=== PATIENT | female | born 1990 | race Caucasian/White ===

== ENCOUNTER 2023-01-18 11:17 | Emergency (ER) | payer BC, SELFPAY ==
[2023-01-18] VITALS (13 sets, daily range): BP systolic 151–160; BP diastolic 89–100; PULSE 64–88; RESP 8–21; TEMP 36.4; O2SAT 95–98; BMI 38.0
--- NOTE | 2023-01-18 11:28 | ECG_ITS ---
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
--- NOTE | 2023-01-18 11:29 | XR_ITS ---
The [address] [address] Patient Name: MAMADOU DRISCOLL MRN: [id number] date: 1990 Sex: F Assigned Patient Location: ER Current Patient Location: ER Accession/Order Number: [id number] Exam Date: 01/18/2023 11:55 Report Date: 01/18/2023 12:17 At the request of: ORTEGA TAN Procedure: XR chest 2V XR chest 2V CLINICAL: Chest pain COMPARISON: 02/28/2021 TECHNIQUE: PA and lateral chest radiographs were obtained. FINDINGS: Heart size and pulmonary vasculature are within normal limits. No airspace infiltrate, consolidation, effusion or pneumothorax. Osseous structures appear intact. XR/XR chest 2V IMPRESSION: No acute cardiac or pulmonary findings. Electronically authenticated by: RASHAUN MELGOZA Date: 01/18/2023 12:17
--- NOTE | 2023-01-18 11:32 | ED_ITS ---
HPI - Chest Pain General Chief Complaint: Chest Pain Stated Complaint: CHEST PAIN Time Seen by Provider: 01/18/23 11:22 Source: patient Limitations: no limitations History of Present Illness HPI narrative: Patient has been experiencing chest pain for the last few days. It initially was intermittent but now is constant. It is localized to the mid anterior chest, just left of center and is non-radiating. Pressing on the area decreases the pain, he told me. No recent activity or injury to account for the pain. 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 He had a mild cough the last few days. No associated shortness of breath. No fever or chills. 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 He has HTN and strong family history of AMI/CAD - his brother had maker at age 34. He took 1500 milligrams of Tylenol for the pain earlier today. Risk Factors Coronary artery disease risk factors: hypertension and family history of CAD before age 50 Thoracic aortic dissection risk factors: none Related Data Home Medications Medication Instructions Recorded Confirmed propranolol 120 mg capsule,24 240 mg PO Q24H 01/18/23 01/18/23 hr,extended release testosterone cypionate 200 mg/mL 200 mg subcut Q7D 01/18/23 01/18/23 intramuscular oil Previous Rx's Medication Instructions Recorded nabumetone 750 mg tablet 750 mg PO BID PRN pain #10 tabs 01/18/23 Allergies Allergy/AdvReac Type Severity Reaction Status Date / Time lamotrigine [From Lamictal] AdvReac Intermediate Verified [facility]18/23 11:[facility] Smoking status: Never smoker Exam Narrative Exam Narrative: Nurses notes and vital signs reviewed and patient is not hypoxic. afebrile General: Well-appearing and in no apparent distress. Skin: Warm, dry, no pallor noted. No rash to chest. Eye: Pupils are equal, round and EOMI. No scleral icterus. Cardiovascular: Regular Rate and Rhythm without murmur, gallop or rub. Respiratory: No accessory muscle use or respiratory distress. Lungs are clear to auscultation, no wheezing, rales or rhonchi Chest Wall: no tenderness, crepitus or subcutaneous emphysema Musculoskeletal: normal ROM, no calf or popliteal tenderness, no lower extremity edema/swelling GI: Abdomen is soft, non-distended. Normal bowel sounds. No tenderness to pa lpation. No rebound, guarding, or rigidity noted. Neurological: A&O x4. No cranial nerve dysfunction observed. No truncal ataxia. Moves all extremities. Sensation intact. Psychiatric: Cooperative and interactive. Normal mood and affect. Constitutional Vital Signs, click to edit/add: Last Vital Signs Temp 97.6 F 01/18/23 11:21 Pulse 65 01/18/23 13:49 Resp 14 01/18/23 13:49 BP 151/89 H 01/18/23 13:49 Pulse Ox 97 01/18/23 13:49 O2 Del Method Room Air 01/18/23 13:49 Course Vital Signs Vital signs: Vital Signs Temperature 97.6 F 01/18/23 11:21 Pulse Rate 88 01/18/23 11:21 Respiratory Rate 18 01/18/23 11:21 Blood Pressure 160/100 H 01/18/23 11:21 Pulse Oximetry 98 01/18/23 11:21 Temperature 97.6 F 01/18/23 11:21 Pulse Rate 65 01/18/23 13:49 Respiratory Rate 14 01/18/23 13:49 Blood Pressure 151/89 H 01/18/23 13:49 Pulse Oximetry 97 01/18/23 13:49 Oxygen Delivery Method Room Air 01/18/23 13:49 MDM - Chest Pain MDM Narrative Medical decision making narrative: 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 Blood drawn and sent for evaluation. CXR obtained. CBC, BMP, troponin and BNP normal/negative. D-dimer negative. CXR unremarkable. EKG normal. Results discussed with the patient. His HEART score = 1. He will go home and see Dr Palencia in follow up for further out-patient testing. The patient was given IV Toradol before discharge and prescribed relafen short term for home use for pain. Lab Data Attestation: I reviewed the patient's lab results. Labs: Lab Results 01/18/23 Range/Units 11:37 WBC 8.5 (4.0-11.0) 10^3/uL RBC 5.64 H (4.20-5.40) 10^6/uL Hgb 17.4 H (12.0-16.0) g/dL Hct 51.7 H (36.0-48.0) % MCV 91.7 (81.0-99.0) fL MCH 30.9 (26.7-34.0) pg MCHC 33.7 (29.9-35.2) g/dL RDW 13.3 (11.0-15.0) % Plt Count 335 (150-450) 10^3/uL MPV 9.9 (9.5-13.5) fL Neut % (Auto) 60.1 (43.0-75.0) % Lymph % (Auto) 26.5 (20.5-60.0) % [place] % (Auto) 8.7 (1.7-12.0) % Eos % (Auto) 3.4 (0.9-7.0) % Baso % (Auto) 0.7 (0.2-2.0) % Neut # (Auto) 5.1 (1.4-6.5) 10^3/uL Lymph # (Auto) 2.3 (1.2-3.8) 10^3/uL [place] # (Auto) 0.7 (0.3-0.8) 10^3/uL Eos # (Auto) 0.3 (0.0-0.7) 10^3/uL Baso # (Auto) 0.1 (0.0-0.1) 10^3/uL Abs Immat Gran (auto) 0.05 H (0.00-0.03) 10^3/uL Imm/Tot Granulo (auto) 0.6 H (0.0-0.5) % D-Dimer 0.26 (<=0.59) mg/L FEU Sodium 141 (136-145) mmol/L Potassium 4.0 (3.5-5.1) mmol/L Chloride 102 (98-107) mmol/L Carbon Dioxide 29.7 (21.0-32.0) mmol/L Anion Gap 13.3 BUN 15.0 (7.0-18.0) mg/dL Creatinine 0.94 (0.55-1.02) mg/dL Est GFR ( Amer) >60 (>=60) Est GFR (Non-Af Amer) >60 (>=60) BUN/Creatinine Ratio 16.0 Glucose 81 (74-106) mg/dL Calcium 9.0 (8.5-10.1) mg/dL Troponin I High Sens 4.3 (4.0-51.3) pg/mL NT-Pro-B Natriuret Pep 51.0 (<=450.0) pg/mL Imaging Data Chest x-ray: Radiologist's impression: Patient Name: MAMADOU DRISCOLL MRN: [id number] date: 1990 Sex: F Assigned Patient Location: ER Current Patient Location: ER Accession/Order Number: [id number] Exam Date: 01/18/2023 11:55 Report Date: 01/18/2023 12:17 At the request of: ORTEGA TAN Procedure: XR chest 2V XR chest 2V CLINICAL: Chest pain COMPARISON: 02/28/2021 TECHNIQUE: PA and lateral chest radiographs were obtained. FINDINGS: Heart size and pulmonary vasculature are within normal limits. No airspace infiltrate, consolidation, effusion or pneumothorax. Osseous structures appear intact. IMPRESSION: No acute cardiac or pulmonary findings. Electronically authenticated by: RASHAUN MELGOZA Date: 01/18/2023 12:17 ECG Data Interpretation: EKG interpretation: Emergency Department physician interpretation. Normal sinus rhythm at 74bpm. Normal axis, normal intervals and no ST segment elevation or depression. Normal EKG. Heart Score History: Slightly/Non-Suspicious ECG: Normal Age: <45 years Risk Factors: 1 or 2 Risk Factors Troponin: <Normal Limit Total Heart Score Recommendations & Risks:: 1 Discharge Plan Discharge Chief Complaint: Chest Pain Clinical Impression: Chest pain Patient Disposition: Home, Self-Care Time of Disposition Decision: 13:09 Prescriptions / Home Meds: New nabumetone 750 mg tablet 750 mg PO BID PRN (Reason: pain) Qty: 10 0RF No Action propranolol 120 mg capsule,extended release 24 hr 240 mg PO Q24H testosterone cypionate 200 mg/mL oil 200 mg subcut Q7D Instructions: Chest Pain (ED) Stand Alone Forms: Portal Instructions Referrals: Ricardo Palencia MD [Physician] - As soon as possible Discharge Date/Time: 01/18/23 13:51
[2023-01-18 12:18] LABS: Basophils Absolute Auto 0.1 10^3/uL (0.0-0.1); Basophils Percent Auto 0.7 % (0.2-2.0); Eosinophils Absolute Auto 0.3 10^3/uL (0.0-0.7); Eosinophils Percent Auto 3.4 % (0.9-7.0); Hematocrit 51.7 % (36.0-48.0); Hemoglobin 17.4 g/dL (12.0-16.0); Immature Granulocytes Abs Auto 0.05 10^3/uL (0.00-0.03); Immature Granulocytes Pct Auto 0.6 % (0.0-0.5); Lymphocytes Absolute Auto 2.3 10^3/uL (1.2-3.8); Lymphocytes Percent Auto 26.5 % (20.5-60.0); Mean Corpuscular HGB Conc 33.7 g/dL (29.9-35.2); Mean Corpuscular Hemoglobin 30.9 pg (26.7-34.0); Mean Corpuscular Volume 91.7 fL (81.0-99.0); Mean Platelet Volume 9.9 fL (9.5-13.5); Monocytes Absolute Auto 0.7 10^3/uL (0.3-0.8); Monocytes Percent Auto 8.7 % (1.7-12.0); Neutrophils Absolute Auto 5.1 10^3/uL (1.4-6.5); Neutrophils Percent Auto 60.1 % (43.0-75.0); Platelet Count 335 10^3/uL (150-450); Red Blood Count 5.64 10^6/uL (4.20-5.40); Red Cell Distribution Width 13.3 % (11.0-15.0); White Blood Count 8.5 10^3/uL (4.0-11.0)
[2023-01-18 12:33] LABS: D Dimer 0.26 mg/L FEU (<=0.59)
[2023-01-18 12:42] LABS: Anion Gap 13.3; Carbon Dioxide 29.7 mmol/L (21.0-32.0); Chloride 102 mmol/L (98-107); Estimated GFR (African America >60 (>=60); Estimated GFR (Non-African Ame >60 (>=60); Glucose 81 mg/dL (74-106); Sodium 141 mmol/L (136-145); Troponin I High Sensitivity 4.3 pg/mL (4.0-51.3)
[2023-01-18] MEDS: KETOROLAC TROMETHAMINE 30 MG/ML VIAL IVP (13:42)
== END 2023-01-18 13:51 | disposition home or self-care (01) ==
PROVIDERS: Emergency Provider Emergency Medicine
DX: R07.9 Chest pain, unspecified (principal); F64.0 Transsexualism; I10 Essential (primary) hypertension; Z79.899 Other long term (current) drug therapy
CPT/HCPCS: 36415; 71046; 80048; 83880; 84484; 85025; 85378; 93005; 96374; 99285

== ENCOUNTER 2023-11-28 16:44 | Outpatient (OUT) | payer BC, SELFPAY ==
--- OUTSIDE RECORDS SUMMARY | 2023-11-28 10:50 | XMS_ITS | CCD ---
Author Organization [facility] Care Team Providers Care Staple Side Laster Name Role Phone DAYRON RAYMOND Admitting Unavailable DAYRON RAYMOND Attending Unavailable FATEMEH PALENCIA Referring Unavailable FATEMEH PALENCIA Primary Care Unavailable ID Procedure Practitioner Unavailab DAYRON Lozada Surgeon Unavailable ID Procedure Practitioner Unavailab VIJAY Joiner Surgeon Unavailable HA RAYMOND Admitting Unavailable HA RAYMOND Attending Unavailable FATEMEH PALENCIA Referring Unavailable FATEMEH PALENCIA Primary Care Unavailable PHYSICIAN, DEFAULT Admitting Unavailable PHYSICIAN, DEFAULT Attending Unavailable HA RAYMOND Admitting Unavailable HA RAYMOND Attending Unavailable SELF, REFERRED Referring Unavailable SELF, REFERRED Primary Care Unavailable HA RAYMOND Admitting Unavailable HA RAYMOND Attending Unavailable SELF, REFERRED Referring Unavailable SELF, REFERRED Primary Care Unavailable HA RAYMOND Admitting Unavailable HA RAYMOND Attending Unavailable FATEMEH PALENCIA Referring Unavailable FATEMEH PALENCIA Primary Care Unavailable Fatemeh Palencia Primary Care Provider FATEMEH ANTHONY DO Admitting Unavailable Alvarado REYEZ Consulting Unavailable WILL PALENCIA Primary Care Unavailable FATEMEH ANTHONY DO Attending Unavailable FATEMEH ANTHONY DO Consulting Unavailable WILL PALENCIA Consulting Unavailable DR FATEMEH PALENCIA Primary Care Unavailable DR FATEMEH PALENCIA Admitting Unavailable DR FATEMEH PALENCIA Attending Unavailable DR FATEMEH PALENCIA Primary Care Unavailable DR FATEMEH PALENCIA Admitting Unavailable DR FATEMEH PALENCIA Attending Unavailable DR FATEMEH PALENCIA Consulting Unavailable DR FATEMEH PALENCIA Primary Care Unavailable DR FATEMEH PALENCIA Admitting Unavailable DR FATEMEH PALENCIA Attending Unavailable DR FATEMEH PALENCIA Primary Care Unavailable SANGEETA PALMER Admitting Unavailable SANGEETA PALMER Attending Unavailable Fatemeh Palencia MD Primary Care Provider [phone] FATEMEH PALENCIA Primary Care Unavailable MARGARET BOO Attending Unavailable SELF, SELF Referring Unavailable HOY, FATEMEH M Primary Care Unavailable HOY, FATEMEH M Referring Unavailable FAITH DAVIS Attending Unavailable HOY, FATEMEH M Primary Care Unavailable FAITH DAVIS Attending Unavailable FAITH DAVIS Referring Unavailable HOY, FATEMEH M Primary Care Unavailable SELF, SELF Referring Unavailable BOO, SAFDAR N Attending Unavailable HOY, FATEMEH M Primary Care Unavailable BOO, SAFDAR N Referring Unavailable BOO, SAFDAR N Attending Unavailable BOO, SAFDAR N Referring Unavailable HOY, FATEMEH M Primary Care Unavailable JEYSON MEDINA Attending Unavailable BOO, SAFDAR N Referring Unavailable HOY, FATEMEH M Primary Care Unavailable BOO, SAFDAR N Attending Unavailable BOO, SAFDAR N Attending Unavailable HOY, FATEMEH M Primary Care Unavailable SELF, SELF Referring Unavailable HOY, FATEMEH M Primary Care Unavailable FAITH DAVIS Attending Unavailable FAITH DAVIS Referring Unavailable RAMONA SHEN Attending Unavailable HOY, FATEMEH M Primary Care Unavailable Fatemeh Palencia MD M Primary Care Provider [phone] HOY, FATEMEH M Primary Care Unavailable DAVID DIXON JR. Attending Unavailable SANTIAGO HIGHTOWER Referring Unavaila ble HOY, FATEMEH M Primary Care Unavailable HOY, FATEMEH M Referring Unavailable HOY, FATEMEH M Attending Unavailable HOY, FATEMEH M Primary Care Unavailable DAYRON TINSLEY Attending Unavailable Allergies Allergy Classification Reported Allergen(s) Allergy Type Date of Onset Reaction(s) Facility (16 sources) PINEAPPLE; Translations: [PINEAPPLE] Propensity to adverse reactions (disorder) 5 [facility] Repository (2 sources) lamoTRIgine Drug Allergy 9 [facility] Repository (8 sources) lamoTRIgine Drug Allergy 0 [facility] (1 source) Lamotrigine Propensity to adverse reactions to drug 0 [facility] Medications Current Medications Medication Drug Class(es) Dates Sig (Normalized) Sig (Original) cetirizine hydrochloride 10 mg oral tablet (1 source) Histamine-1 Receptor Antagonist Start: 10-10-2018 take 1 tablet by mouth once daily as needed cetirizine 10 MG Tab tablet Take 1 tablet by mouth daily as needed for Allergies. 15 tablet 0 10/10/2018 Active codeine phosphate 2 mg/ml / guaiFENesin 20 mg/ml oral solution (7 sources) Opioid Agonist Start: 03-01-2021 take 10 mL by mouth every six hours as needed for cough guaifenesin-codeine (Cheratussin AC) 100-10 MG/5ML Syrup syrup Indications: Bronchitis Take 10 mL by mouth every 6 hours as needed for Cough for up to 5 days. 118 mL 03/01/2021 Active cyclobenzaprine hydrochloride 10 mg oral tablet (9 sources) Muscle Relaxant take 1 tablet by mouth three times daily as needed for muscle spasms cyclobenzaprine 10 MG Tab tablet Take 10 mg by mouth 3 times daily as needed for Muscle spasms. Active DULoxetine 30 mg delayed release oral capsule (7 sources) Serotonin and Norepinephrine Reuptake Inhibitor Start: 06-26-2020 take 1 capsule by mouth once daily DULoxetine [address] Particles capsule DR Take 1 capsule by mouth daily. Take 30mg by mouth daily x1 week, then 60mg by mouth daily. 60 capsule 1 06/26/2020 Active erythromycin 0.005 mg/mg ophthalmic ointment (1 source) Macrolide, Macrolide Antimicrobial Start: 10-10-2018 apply 3.5 g into the eye(s) four times daily erythromycin 5 MG/GM Ointment ophthalmic ointment 1/2 inch to affected eye(s) QID for 5-7 days 3.5 g 0 10/10/2018 Active ketorolac tromethamine 5 mg/ml ophthalmic solution (1 source) Nonsteroidal Anti-inflammatory Drug, Cyclooxygenase Inhibitor Start: 10-10-2018 take 1 drop(s) into the eye(s) four times daily ketorolac 0.5 % Solution ophthalmic solution Place 1 drop in right eye 4 times daily. 1 Bottle 0 10/10/2018 Active olmesartan medoxomil 40 mg oral tablet (9 sources) Angiotensin 2 Receptor Grisel take 1 tablet by mouth once daily olmesartan 40 MG tablet Take 40 mg by mouth daily. Active omeprazole 40 mg delayed release oral capsule (11 sources) Proton Pump Inhibitor Start: 07-02-2018 End: 07-16-2018 take 1 capsule by mouth once daily omeprazole [address] capsule Take 1 capsule by mouth daily for 14 doses. 14 capsule 07/02/2018 Active phentermine hydrochloride 37.5 mg oral capsule (9 sources) Sympathomimetic Amine Anorectic Phentermine HCl (Adipex-P) 37.5 MG capsule Take by mouth. Active pregabalin 50 mg oral capsule (8 sources) Start: 06-26-2021 End: 07-26-2021 take 1 capsule by mouth twice daily pregabalin 50 MG capsule Indications: Lumbar radiculopathy Take 1 capsule by mouth 2 times daily. 60 capsule 06/26/2021 Active 24 hr propranolol hydrochloride 120 mg extended release oral capsule (13 sources) beta-Adrenergic Grisel Start: 04-16-2019 take 1 capsule by mouth twice daily propranolol 120 MG Cap SR 24HR Take 120 mg by mouth 2 times daily. 04/16/2019 Active Start: 04-16-2019 take 1 capsule by [facility] once daily propranolol 120 MG Cap SR 24HR Take 120 mg by mouth daily. 0 04/16/2019 Active take 80 mg by mouth once daily P ropranolol HCl (INDERAL PO) Take 80 mg by mouth daily. 0 Active 1 ml testosterone cypionate 200 mg/ml injection (13 sources) Androgen Start: 05-26-2020 inject 1 mL by intramuscular injection every other week testosterone cypionate 200 MG/ML Solution injection Inject 1 mL intramuscularly Every other week. 05/26/2020 Active inject 0.5 mg by int ramuscular injection every week testosterone cypionate 200 MG/ML Solutio n injection Inject 0.5 mg intramuscularly once a week. 0 Active Completed/Discontinued Medications Medication Drug Class(es) Dates Sig (Normalized) Sig (Original) amoxicillin 875 mg / clavulanate 125 mg oral tablet (3 sources) Penicillin-class Antibacterial End: 10-10-2018 take 1 tablet by mouth every twelve hours amoxicillin-clavu lanate 875-125 MG Tab tablet Take 1 tablet by mouth every 12 hours. 0 10/10/2018 Discontinued dexamethasone phosphate 10 mg/ml injectable solution (1 source) Corticosteroid Start: 10-30-2023 End: 10-30-2023 take 1 dose by mouth once 10 mg, Oral, ONCE, 1 dose, On Ekaterina 10/30/23 at 1000 EPINEPHrine / Lidocaine (1 source) Antiarrhythmic, alpha-Adrenergic Agonist, beta-Adrenergic Agonist, Catecholamine, Amide Local Anesthetic Start: 09-22-2018 End: 09-22-2018 lidocaine-epineph rine 1%-1:678405 injection 20 mL 2 ml famotidine 10 mg/ml injection (1 source) Histamine-2 Receptor Antagonist Start: 07-02-2018 End: 07-02-2018 faMOTIdine (PEPCID) injection 20 mg Start: 07-02-2018 End: 07-02-2018 faMOTIdine (PEPCID) injectio n 20 mg gadoterate Meglumine (DOTAREM) 5 MMOL/10ML injection 3-60 mL (1 source) Start: 07-13-2021 End: 07-13-2021 gadoterate Meglumine (DOTAREM) 5 MMOL/10ML injection 3-60 mL 1 ml HYDROmorphone hydrochloride 2 mg/ml cartridge (2 sources) Opioid Agonist Start: 07-02-2018 End: 07-02-2018 HYDROmorphone (DILAUDID) injection 1 mg Start: 07-02-2018 End: 07-02-2018 HYDROmorphone (DILAUDID) inj ection 1 mg ibuprofen 600 mg oral tablet (1 source) Nonsteroidal Anti-inflammatory Drug Start: 09-22-2018 End: 09-22-2018 ibuprofen (MOTRIN) tablet 600 mg Start: 09-22-2018 End: 09-22-2018 ibuprofen (MOTRIN) tablet 60 0 mg iohexol (OMNIPAQUE) 180 MG/ML injection 1-30 mL (1 source) Start: 08-24-2021 End: 08-24-2021 iohexol (OMNIPAQUE) 180 MG/ML injection 1-30 mL 10 ml lidocaine hydrochloride 10 mg/ml injection (1 source) Antiarrhythmic, Amide Local Anesthetic Start: 08-24-2021 End: 08-24-2021 lidocaine 1% (PF) (XYLOCAINE MPF) 1 % injection 1-50 mL Start: 08-24-2021 End: 08-24-2021 lidocaine 1% (PF) (XYLOCAINE MPF) 1 % injection 1-50 mL 1 ml LORazepam 2 mg/ml injection (2 sources) Benzodiazepine Start: 07-02-2018 End: 07-02-2018 LORazepam (ATIVAN) injection 1 mg Start: 07-02-2018 End: 07-02-2018 LORazepam (ATIVAN) injection 1 mg ondansetron 4 mg disintegrating oral tablet (4 sources) Serotonin-3 Receptor Antagonist Start: 09-24-2018 End: 09-24-2018 ondansetron (ZOFRAN-ODT) disintegrating tablet 1 Each Start: 09-24-2018 End: 09-24-2018 ondansetron 4mg/2ml (ZOFRAN) injection 8 mg Start: 07-02-2018 End: 07-02-2018 ondansetron 4mg/2ml (ZOFRAN) injection 4 mg Start: 07-02-2018 End: 07-02-2018 ondansetron 4mg/2ml (ZOFRAN) injection 4 mg proparacaine hydrochloride 5 mg/ml ophthalmic solution (1 source) Local Anesthetic Start: 10-10-2018 End: 10-10-2018 proparacaine (ALCAINE) 0.5 % ophthalmic solution 1 drop Start: 10-10-2018 End: 10-10-2018 proparacaine (ALCAINE) 0.5 % ophthalmic solution 1 drop 10 ml sodium chloride 9 mg/m l injection (3 sources) Start: 07-13-2021 End: 07-13-2021 sodium chloride (PF) 0.9 % injection 1-100 mL Start: 09-24-2018 End: 09-24-2018 sodium chloride 0.9% IV solu tion 1,000 mL Start: 07-02-2018 End: 07-02-2018 sodium chloride 0.9% IV solu tion 1,000 mL Problems Active Problems Problem Classification Problem Date Documented Date Episodic/Chronic Abdominal pain (1 source) Left upper quadrant pain; Translations: [LUQ pain] Episodic Anxiety disorders (1 source) Anxiety; Translations: [Anxiety] Chronic Diseases of mouth; excluding dental (3 sources) Uvulitis; Translations: [Cellulitis and abscess of mouth] Onset: 10-30-2023 10-30-2023 Episodic Disorders of teeth and jaw (1 source) Toothache; Translations: [Pain, dental] Episodic E Codes: Natural/environment (1 source) Bitten by dog, initial encounter; Translations: [Bitten by dog, initial encounter] Onset: 07-03-2023 Episodic Inflammation; infection of eye (except that caused by tuberculosis or sexually transmitteddisease) (1 source) Conjunctivitis of right eye; Translations: [Conjunctivitis of right eye, unspecified conjunctivitis type] Joint disorders and dislocations; trauma-related (1 source) Loose body in knee, right knee; Translations: [LOOSE BODY IN KNEE, RIGHT KNEE] Onset: 12-19-2017 Chronic Nausea and vomiting (1 source) Nausea and vomiting; Translations: [Non-intractable vomiting with nausea, unspecified vomiting type] Episodic Osteoarthritis (1 source) Unilateral primary osteoarthritis, right knee; Translations: [UNILATERAL PRIMARY OSTEOARTHRITIS, RIGHT KNEE] Onset: 12-08-2017 Chronic Other nervous system disorders (4 sources) Paresthesia of foot ; Translations: [Anesthesia of skin] Episodic Other non-traumatic joint disorders (1 source) Effusion, right knee; Translations: [EFFUSION, RIGHT KNEE] Onset: 02-17-2018 Episodic Other nutritional; endocrine; and metabolic disorders (1 source) Obesity, unspecified; Translations: [OBESITY, UNSPECIFIED] Onset: 02-06-2018 Chronic Other nutritional; endocrine; and metabolic disorders (1 source) Body mass index (BMI) 40.0-44.9, adult; Translations: [BODY MASS INDEX (BMI) 40.0-44.9, ADULT] Onset: 02-06-2018 Chronic Other nutritional; endocrine; and metabolic disorders (9 sources) Obese class I; Translations: [Obesity, unspecified] Onset: 03-28-2019 03-28-2019 Chronic Other upper respiratory disease (1 source) Allergic rhinitis, unspecified; Translations: [ALLERGIC RHINITIS, UNSPECIFIED] Onset: 02-06-2018 Chronic Residual codes; unclassified (1 source) History of operative procedure on lumbar spinal structure; Translations: [Other specified postprocedural states] Episodic Spondylosis; intervertebral disc disorders; other back problems (18 sources) Narrowing of intervertebral disc space; Translations: [Other intervertebral disc degeneration, lumbar region] Onset: 03-27-2019 03-27-2019 Chronic Sprains and strains (5 sources) Sprain of anterior cruciate ligament of right knee, initial encounter; Translations: [Sprain of anterior cruciate ligament of right knee, subsequent encounter] Onset: 02-06-2018 Episodic Unclassified (1 source) DX Onset: 02-06-2018 Unclassified (1 source) COMPLETE TEAR, KNEE, ANTERIOR CRU Onset: 02-06-2018 Past or Other Problems Problem Classification Problem Date Documented Da te Episodic/Chronic Acquired foot deformities (1 source) Valgus deformity, not elsewhere classified, left ankle; Translations: [VALGUS DEFORMITY, NOT ELSEWHERE CLASSIFIED, LEFT ANKLE] Onset: 12-08-2017 Episodic Acquired foot deformities (1 source) Valgus deformity, not elsewhere classified, right ankle; Translations: [VALGUS DEFORMITY, NOT ELSEWHERE CLASSIFIED, RIGHT ANKLE] Onset: 12-08-2017 Episodic Immunizations and screening for infectious disease (4 sources) Contact with and (suspected) exposure to other viral communicable diseases; Translations: [CONTCT EXPS OTH VIRL COMMUNICABL DZ] Onset: 01-25-2020 Episodic Mood disorders (9 sources) Mood disorders Onset: 06-26-2020 Resolved: 06-26-2020 06-26-2020 Other acquired deformities (1 source) Valgus deformity, not elsewhere classified, left knee; Translations: [VALGUS DEFORMITY, NOT ELSEWHERE CLASSIFIED, LEFT KNEE] Onset: 12-08-2017 Episodic Other bone disease and musculoskeletal deformities (1 source) Osteolysis, right lower leg; Translations: [OSTEOLYSIS, RIGHT LOWER LEG] Onset: 12-19-2017 Episodic Other non-traumatic joint disorders (4 sources) Pain in unspecified knee; Translations: [PAIN IN UNSPECIFIED KNEE] Onset: 12-08-2017 Episodic Other upper respiratory infections (1 source) Acute pharyngitis, unspecified; Translations: [ACUTE PHARYNGITIS UNSPECIFIED] Onset: 01-29-2020 Episodic Spondylosis; intervertebral disc disorders; other back problems (20 sources) Low back pain; Translations: [Low back pain] Onset: 04-16-2019 Episodic Unclassified (4 sources) Onset: 08-24-2021 08-24-2021 Results Test Name Value Interpretation Reference Range Facility ESTRADIOLon 04-19-2023 ESTRADIOL 71.9 Normal [facility] Comment on above: Result Comment: Unit : pg/mL (NOTE) Adult Female Range Follicular phase 12.5 - 166.0 Ovulation phase 85.8 - 498.0 Luteal phase 43.8 - 211.0 Postmenopausal <6.0 - 54.7 1st trimester 215.0 - >4300.0 Yan ECLIA methodology [facility] Performed By: #### L ESTD ####Testing performed at [facility] [place] [id number] CBCon 04-18-2023 ABSOLUTE BAS 0.1 10*3/uL Normal 0.0-0.2 [facility] Comment on above: Performed By: #### L ESTD ####Testing performed at [facility], [address] [place] [address] ABSOLUTE EOS 0.2 10*3/uL Normal 0.0-0.7 [facility] Comment on above: Performed By: #### L ESTD ####Testing performed at [facility], [address] [place] [address] ABSOLUTE NEUTROPHIL COUNT 4.6 10*3/uL Normal 1.4-6.5 [facility] Comment on above: Performed By: #### L ESTD ####Testing performed at [facility], [address] [place] [address] Basophils/100 WBC (Bld) 1.0 % Normal 0.0-2.0 [facility] Comment on above: Performed By: #### L ESTD ####Testing performed at [facility], [address] [place] [address] DTYPE AUTO DIFF Normal [facility] Comment on above: Performed By: #### L ESTD ####Testing performed at [facility], [address] [place] [address] Eosinophils/100 WBC (Bld) 2.3 % Normal 0.0-11.0 [facility] Comment on above: Performed By: #### L ESTD ####Testing performed at [facility], [address] [place] [address] Lymphocytes (Bld) [#/Vol] 2.1 10*3/uL Normal 1.2-3.4 [facility] Comment on above: Performed By: #### L ESTD ####Testing performed at [facility], [address] [place] [address] Lymphocytes/100 WBC (Bld) 28.0 % Normal 20.0-55.0 [facility] Comment on above: Performed By: #### L ESTD ####Testing performed at [facility], [address] [place] [address] Monocytes (Bld) [#/Vol] 0.5 10*3/uL Normal 0.0-0.7 [facility] Comment on above: Performed By: #### L ESTD ####Testing performed at [facility], [id number] [place] [address] Monocytes/100 WBC (Bld) 6.9 % Normal 0.0-10.0 [facility] Comment on above: Performed By: #### L ESTD ####Testing performed at [facility], [address] [place] [address] Neutrophils/100 WBC (Bld) 61.8 % Normal 37.0-75.0 [facility] Comment on above: Performed By: #### L ESTD ####Testing performed at [facility], [address] [place] [address] Erythrocyte distribution width (RBC) [Ratio] 14.7 % High 11.5-14.5 [facility] Comment on above: Performed By: #### L ESTD ####Testing performed at [facility], [id number] [place] [address] Hematocrit (Bld) [Volume fraction] 53.2 % High 36.0-48.0 [facility] Comment on above: Performed By: #### L ESTD ####Testing performed at [facility], [address] [place] [address] Hemoglobin (Bld) [Mass/Vol] 17.8 g/dL High 12.0-16.0 [facility] Comment on above: Performed By: #### L ESTD ####Testing performed at [facility], [id number] [place] [address] MCH (RBC) [Entitic mass] 31.1 pg Normal 26.0-35.0 [facility] Comment on above: Performed By: #### L ESTD ####Testing performed at [facility], [id number] [place], [place] [address]e [facility] [place] [address] MCHC (RBC) [Mass/Vol] 33.5 g/dL Normal 27.0-37.0 [facility] Comment on above: Performed By: #### L ESTD ####Testing performed at [facility], [id number] [facility] [place] [address] MCV (RBC) [Entitic vol] 92.7 fL Normal 80.0-100.0 [facility] Comment on above: Performed By: #### L ESTD ####Testing performed at [facility], [id number] [facility] [place] [address] Platelet mean volume (Bld) [Entitic vol] 7.6 fL Normal 7.4-11.0 [facility] Comment on above: Performed By: #### L ESTD ####Testing performed at [facility], [id number] [facility] [place] [address] Platelets (Bld) [#/Vol] 301 10*3/uL Normal 130-400 [facility] Comment on above: Performed By: #### L ESTD ####Testing performed at [facility], [address] [facility] [place] [address] RBC (Bld) [#/Vol] 5.74 10*6/uL High 4.0-5.4 [facility] Comment on above: Performed By: #### L ESTD ####Testing performed at [facility], [id number] [place] [address] WBC (Bld) [#/Vol] 7.5 10*3/uL Normal 3.6-11.0 [facility] Comment on above: Performed By: #### L ESTD ####Testing performed at [facility], [id number] [facility] [place] [address] CMP FASTINGon 04-18-2023 A:G RATIO 1.6 RATIO Normal 1.3-2.2 [facility] Comment on above: Performed By: #### L ESTD ####Testing performed at [facility], [id number] [facility] [place] [address] ALBUMIN 4.7 G/dl Normal 3.5-5.0 [facility] Comment on above: Performed By: #### L ESTD ####Testing performed at [facility], [address] [facility] [place] [address] ALP [Catalytic activity/Vol] 56 U/L Normal 38-126 [facility] Comment on above: Performed By: #### L ESTD ####Testing performed at [facility], [address] [facility] [place] [address] ALT [Catalytic activity/Vol] 45 U/L High <35 [facility] Comment on above: Performed By: #### L ESTD ####Testing performed at [facility], [address] [facility] [place] [address] AST [Catalytic activity/Vol] 42 U/L High 14-36 [facility] Comment on above: Performed By: #### L ESTD ####Testing performed at [address] [place] [address] Bilirubin [Mass/Vol] 0.9 mg/dL Normal 0.2-1.3 [facility] Comment on above: Performed By: #### L ESTD ####Testing performed at [address] [place] [address] Calcium [Mass/Vol] 9.3 mg/dL Normal 8.4-10.2 [facility] Comment on above: Performed By: #### L ESTD ####Testing performed at [address] [place] [address] Chloride [Moles/Vol] 104 mmol/L Normal 98-107 [facility] Comment on above: Result Comment: Plea note: Triglyceride levels of 600mg/dL or higher may positively bias chloride results by approximately 2.1 mmol Performed By: #### L ESTD ####Testing performed at [facility], [address] [facility] [place] [address] CO2 [Moles/Vol] 25 mmol/L Normal 22-30 [facility] Comment on above: Performed By: #### L ESTD ####Testing performed at [facility], [id number] [employer] [place] [address] Creatinine [Mass/Vol] 0.90 mg/dL Normal 0.7-1.2 [facility] Comment on above: Performed By: #### L ESTD ####Testing performed at [facility], [id number] [place] [address] EST. GFR, 93 ml/min/1.73sq.m [facility] Comment on above: Performed By: #### L ESTD ####Testing performed at [facility], [id number] [place] [address] EST. GFR,Non 77 ml/min/1.73sq.m [facility] Comment on above: Performed By: #### L ESTD ####[facility] [id number] [facility] [place] [address] GFR Information Average GFR for 30-3 9 years old = 107. Normal [facility] [facility] Comment on above: Result Comment: Slate Splitter brenton Kidney disease, GFR = <60. Kidney failure, GFR = <15. The GFR estimate is not adjusted for extreme body surface area or acute process, nor has it been validated for women or ethnic groups other than and . Performed By: #### L ESTD ####[facility] [id number] [facility] [address] Glucose [Mass/Vol] 86 mg/dL Normal 70-100 [facility] Comment on above: Result Comment: NORMAL <100 mg/dL PREDIABETES 101-126 mg/dL DIABETES 126 mg/dL or higher Performed By: #### L ESTD ####[facility], [id number] [facility] [place] [address] Potassium [Moles/Vol] 4.5 mmol/L Normal 3.5-5.1 [facility] Comment on above: Performed By: #### L ESTD ####[facility], [id number] [facility] [place] [address] Protein [Mass/Vol] 7.7 g/dL Normal 6.3-8.2 [facility] Comment on above: Performed By: #### L ESTD ####Testing performed at [address] [address] Sodium [Moles/Vol] 139 mmol/L Normal 137-145 [facility] Comment on above: Performed By: #### L ESTD ####Testing performed at [address] [place] [address] Urea nitrogen [Mass/Vol] 16 mg/dL Normal 7-20 [facility] Comment on above: Performed By: #### L ESTD ####Testing performed at [address] [address] FAX REQUESTon 04-18-2023 FAX TO [phone] [facility] Comment on above: Performed By: #### L ESTD #### Testing performed at [address] [address] TESTOSTERONEon 04-18-2023 Testosterone [Mass/Vol] 338.0 ng/dL High 5.7-77.0 [facility] Comment on above: Result Comment: REFE RENCE RANGE FOR FEMALES WITH NORMAL MENSTURAL CYCLES Performed By: #### L ESTD ####Testing performed at [address] [place] [address] INSULIN, FASTINGon 3 INSULIN, FASTING 80.2 [facility] Comment on above: Result Comment: Refe rence range: 2.6 to 24.9 Unit: uIU/mL PERFORMED AT [facility] Performed By: #### L INS, LTHYR #### Testing performed at [address] [address] THYROID PANEL W/TSHon 2022 FREE THYROXINE INDEX 1.9 Normal [facility] Comment on above: Result Comment: Refe rence range: 1.2 to 4.9 PERFORMED AT [facility] Performed By: #### L INS, LTHYR #### Testing performed at [address] [place] [address] [place] [address] T3 UPTAKE 29 Normal [facility] Comment on above: Result Comment: Refe rence range: 24 to 39 Unit: % Performed By: #### L INS LTHYR #### Testing performed at [address] [place] [address] [place] [address] T4 [Mass/Vol] 6.7 ug/dL Normal [facility] Comment on above: Result Comment: Refe rence range: 4.5 to 12.0 Unit: ug/dL Performed By: #### L INS LTHYR #### Testing performed [address] [facility] [place] [address] TSH Qn 2.770 m[IU]/L [facility] Comment on above: Result Comment: Refe rence range: 0.450 to 4.500 Unit: uIU/mL Performed By: #### L INS LTHYR #### Testing performed at [address] [place] [address] [place] [address] CBCon 11-22-2022 ABSOLUTE BAS 0.0 10*3/uL Normal 0.0-0.2 [facility] Comment on above: Performed By: #### L INS, LTHYR #### Testing performed at [address] [place] [address] [place] [address] ABSOLUTE EOS 0.2 10*3/uL Normal 0.0-0.7 [facility] Comment on above: Performed By: #### L INS, LTHYR #### Testing performed at [address] [place] [address] [place] [address] ABSOLUTE NEUTROPHIL COUNT 5.3 10*3/uL Normal 1.4-6.5 [facility] Comment on above: Performed By: #### L INS, LTHYR #### Testing performed at [address] [place] [address] [place] [address] Basophils/100 WBC (Bld) 0.5 % Normal 0.0-2.0 [facility] Comment on above: Performed By: #### L INS, LTHYR #### Testing performed at [address] [place] [address] [place] [address] DTYPE AUTO DIFF Normal [facility] Comment on above: Performed By: #### L INS, LTHYR #### Testing performed at [address] [place] [address] [place] [address] Eosinophils/100 WBC (Bld) 3.0 % Normal 0.0-11.0 [facility] Comment on above: Performed By: #### L INS, LTHYR #### Testing performed at [address] [place] [address] [place] [address] Lymphocytes (Bld) [#/Vol] 2.0 10*3/uL Normal 1.2-3.4 [facility] Comment on above: Performed By: #### L INS, LTHYR #### Testing performed at [address] [facility] [place] [address] [place] [address] Lymphocytes/100 WBC (Bld) 25.2 % Normal 20.0-55.0 [facility] Comment on above: Performed By: #### L INS, LTHYR #### Testing performed at [address] [facility] [place] [address] [place] [address] Monocytes (Bld) [#/Vol] 0.5 10*3/uL Normal 0.0-0.7 [facility] Comment on above: Performed By: #### L INS, LTHYR #### Testing performed at [address] [place] [address] [place] [address] Monocytes/100 WBC (Bld) 6.0 % Normal 0.0-10.0 [facility] Comment on above: Performed By: #### L INS, LTHYR #### Testing performed at [address] [place] [address] [place] [address] Neutrophils/100 WBC (Bld) 65.3 % Normal 37.0-75.0 [facility] Comment on above: Performed By: #### L INS, LTHYR #### Testing performed at [address] [address] Erythrocyte distribution width (RBC) [Ratio] 14.6 % High 11.5-14.5 [facility] Comment on above: Performed By: #### L INS LTHYR #### Testing performed at [address] [address] Hematocrit (Bld) [Volume fraction] 52.1 % High 36.0-48.0 [facility] Comment on above: Performed By: #### L INS LTHYR #### Testing performed at [address] [address] Hemoglobin (Bld) [Mass/Vol] 17.7 g/dL High 12.0-16.0 [facility] Comment on above: Performed By: #### L INS, LTHYR #### Testing performed at [address] [address] MCH (RBC) [Entitic mass] 31.5 pg Normal 26.0-35.0 [facility] Comment on above: Performed By: #### L INS LTHYR #### Testing performed at [address] [address] MCHC (RBC) [Mass/Vol] 34.0 g/dL Normal 27.0-37.0 [facility] Comment on above: Performed By: #### L INS LTHYR #### Testing performed at [address] [address] MCV (RBC) [Entitic vol] 92.7 fL Normal 80.0-100.0 [facility] Comment on above: Performed By: #### L INS LTHYR #### Testing performed at [address] [address] Platelet mean volume (Bld) [Entitic vol] 8.3 fL Normal 7.4-11.0 [facility] Comment on above: Performed By: #### L INS LTHYR #### Testing performed at [address] [address] Platelets (Bld) [#/Vol] 289 10*3/uL Normal 130-400 [facility] Comment on above: Performed By: #### L INS, LTHYR #### Testing performed at [address] [address] RBC (Bld) [#/Vol] 5.63 10*6/uL High 4.0-5.4 [facility] Comment on above: Performed By: #### L INS, LTHYR #### Testing performed at [address] [address] WBC (Bld) [#/Vol] 8.1 10*3/uL Normal 3.6-11.0 [facility] Comment on above: Performed By: #### L INS, LTHYR #### Testing performed at [address] [address] CMP FASTINGon 11-22-2022 A:G RATIO 1.5 RATIO Normal 1.3-2.2 [facility] Comment on above: Performed By: #### L INS, LTHYR #### Testing performed at [address] [address] ALBUMIN 4.4 G/dl Normal 3.5-5.0 [facility] Comment on above: Performed By: #### L INS, LTHYR #### Testing performed at [address] [address] ALP [Catalytic activity/Vol] 47 U/L Normal 38-126 [facility] Comment on above: Performed By: #### L INS, LTHYR #### Testing performed at [address] [address] ALT [Catalytic activity/Vol] 32 U/L Normal <35 [facility] Comment on above: Performed By: #### L INS, LTHYR #### Testing performed at [address] [place] [address] AST [Catalytic activity/Vol] 31 U/L Normal 14-36 [facility] Comment on above: Performed By: #### L INS LTHYR #### Testing performed at [address] [place] [address] [place] [address] Bilirubin [Mass/Vol] 0.5 mg/dL Normal 0.2-1.3 [facility] Comment on above: Performed By: #### L INS LTHYR #### Testing performed at [address] [place] [address] [place] [address] Calcium [Mass/Vol] 9.3 mg/dL Normal 8.4-10.2 [facility] Comment on above: Performed By: #### L INS LTHYR #### Testing performed at [address] [place] [address] Chloride [Moles/Vol] 104 mmol/L Normal 98-107 [facility] Comment on above: Result Comment: Eliud reyez note: Triglyceride levels of 600mg/dL or higher may positively bias chloride results by approximately 2.1 mmol Performed By: #### L INS LTHYR #### Testing performed at [address] [address] CO2 [Moles/Vol] 28 mmol/L Normal 22-30 [facility] Comment on above: Performed By: #### L INS LTHYR #### Testing performed at [address] [address] Creatinine [Mass/Vol] 0.90 mg/dL Normal 0.7-1.2 [facility] Comment on above: Performed By: #### L INS LTHYR #### Testing performed [address] [facility] [place] [address] EST. GFR, 93 ml/min/1.73sq.m Normal [facility] Comment on above: Performed By: #### L INS LTHYR #### Testing performed [address] [place] [address] EST. GFR,Non 77 ml/min/1.73sq.m Normal [facility] Comment on above: Performed By: #### L INS LTHYR #### Testing performed at [address] [address] GFR Information Average GFR for 30-3 9 years old = 107. Normal [facility] Comment on above: Result Comment: Slate Splitter brenton Kidney disease, GFR = <60. Kidney failure, GFR = <15. The GFR estimate is not adjusted for extreme body surface area or acute process, nor has it been validated for women or ethnic groups other than and . Performed By: #### L INS LTHYR #### Testing performed at [address] [address] Glucose [Mass/Vol] 83 mg/dL Normal 70-100 [facility] Comment on above: Result Comment: NORMAL <100 mg/dL PREDIABETES 101-126 mg/dL DIABETES 126 mg/dL or higher Performed By: #### L INS, LTHYR #### Testing performed at [address] [address] Potassium [Moles/Vol] 3.9 mmol/L Normal 3.5-5.1 [facility] Comment on above: Performed By: #### L INS, LTHYR #### Testing performed at [address] [address] Protein [Mass/Vol] 7.3 g/dL Normal 6.3-8.2 [facility] Comment on above: Performed By: #### L INS, LTHYR #### Testing performed at [address] [address] Sodium [Moles/Vol] 138 mmol/L Normal 137-145 [facility] Comment on above: Performed By: #### L INS, LTHYR #### Testing performed at [address] [address] Urea nitrogen [Mass/Vol] 12 mg/dL Normal 7-20 [facility] Comment on above: Performed By: #### L INS, LTHYR #### Testing performed at [address] [place] [address] FAX REQUESTon 11-22-2022 FAX TO [phone] [facility] FAX TO [phone] [facility] Comment on above: Performed By: #### L INS, LTHYR #### Testing performed at [address] [address] HEMOGLOBIN A1Con 11-22-2022 Glucose [Mass/Vol] 105 mg/dL Normal [facility] HbA1c (Bld) [Mass fraction] 5.3 % Normal 0-6 [facility] Comment on above: Result Comment: NORMAL <5.7% PREDIABETES 5.7-6.4% DIABETES 6.5% OR HIGHER IRONon 11-22-2022 Iron [Mass/Vol] 91 ug/dL Normal 37-170 [facility] Comment on above: Performed By: #### L INS, LTHYR #### Testing performed at [address] [address] LIPID PROFILEon 11-22-2022 Cholesterol [Mass/Vol] 176 mg/dL Normal 107-217 [facility] Comment on above: Performed By: #### L INS, LTHYR #### Testing performed at [address] [address] Cholesterol in HDL [Mass/Vol] 19 mg/dL Low 33-75 [facility] Comment on above: Performed By: #### L INS, LTHYR #### Testing performed at [address] [address] Cholesterol in LDL [Mass/Vol] 55 mg/dL Normal [facility] Comment on above: Performed By: #### L INS, LTHYR #### Testing performed at [address] [place] [address] Cholesterol in VLDL [Mass/Vol] 102 mg/dL High 5.0-25 [facility] Comment on above: Performed By: #### L INS, LTHYR #### Testing performed at [address] [place] [address] Cholesterol.total/Chol esterol in HDL [Mass ratio] 9.26 {ratio} Normal [facility] Comment on above: Result Comment: RISK TOTAL/HDL RATIO MEN WOMEN 1/2 AVERAGE 3.43 3.27 AVERAGE 4.97 4.44 2X AVERAGE 9.55 7.05 3X AVERAGE 23.99 11.04 Performed By: #### L INS, LTHYR #### Testing performed at [address] [place] [address] Triglyceride [Mass/Vol] 509 mg/dL High 0-150 [facility] Comment on above: Performed By: #### L INS, LTHYR #### Testing performed at [address] [address] [address] Lumbar spine W contrast I [place] 08-28-2021 IMPRESSION: 1. Postsurgical changes at L4-L5 without thecal sac narrowing. There is no canal stenosis, the canal measures over 10 mm in AP diameter at every level. 2. There appears to be a small volume of epidural scarring along the ventral left aspect of L4-L5 near the left lateral recess. This is concordant with the MRI findings. 3. 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 OLOGY EXAM: CT SPINE LUMBA R WITH CONTRAST, 08/24/2021 15:00 PM COMPARISON: MR lumbar spine dated August 24, 2021 CLINICAL INDICATIONS: [address] myelogram; RELEVANT CLINICAL HISTORY: R20.0:Numbness and tingling of both feet R20.2:Numbness and tingling of both feet M54.16:Lumbar radiculopathy TECHNIQUE: A series of transaxial multislice computerized tomographic thin section source images of the lumbar spine are obtained with helical technique following intrathecal administration of nonionic contrast. Reformats: Axial, sagittal, coronal. CONTRAST: iohexol (OMNIPAQUE) 180 MG/ML injection 1-30 mL; Route of Administration: Intravenous; Dose: 12 mL. FINDINGS: 5 lumbar type vertebral bodies with trace anterolisthesis of L4 and L5. Vertebral bodies are normal in height. Mild paraspinal soft tissue scarring is present at L4-L5 from prior microdiscectomy. No fluid collections. Degeneration of the L4-L5 disc space. The thecal sac opacifies well with contrast. The roots of the cauda equina are unremarkable. There is no thecal sac effacement at the level of L4-L5 or elsewhere within the lumbar spinal canal. By levels: L1-L2: No spinal stenosis or foraminal compromise. L2-L3: No spinal stenosis or foraminal compromise. L3-L4: No spinal stenosis or foraminal compromise. L4-L5: Postsurgical changes are present at L4-L5. As was noted on MRI, there appears to be a small volume of epidural scarring along the ventral left aspect of the canal near the lateral recess. There is no canal stenosis at this level. There is moderate left and mild right neuroforaminal narrowing. L5-S1: No spinal stenosis or foraminal compromise. RADIOLOGY Vin Raymond MD - 08/28/2021 EXAM: CT SPINE LUMBAR WITH CONTRAST, 08/24/2021 15:00 PM COMPARISON: MR lumbar spine dated August 24, 2021 CLINICAL INDICATIONS: [address] myelogram; RELEVANT CLINICAL HISTORY: R20.0:Numbness and tingling of both feet R20.2:Numbness and tingling of both feet M54.16:Lumbar radiculopathy TECHNIQUE: A series of transaxial multislice computerized tomographic thin section source images of the lumbar spine are obtained with helical technique following intrathecal administration of nonionic contrast. Reformats: Axial, sagittal, coronal. CONTRAST: iohexol (OMNIPAQUE) 180 MG/ML injection 1-30 mL; Route of Administration: Intravenous; Dose: 12 mL. FINDINGS: 5 lumbar type vertebral bodies with trace anterolisthesis of L4 and L5. Vertebral bodies are normal in height. Mild paraspinal soft tissue scarring is present at L4-L5 from prior microdiscectomy. No fluid collections. Degeneration of the L4-L5 disc space. The thecal sac opacifies well with contrast. The roots of the cauda equina are unremarkable. There is no thecal sac effacement at the level of L4-L5 or elsewhere within the lumbar spinal canal. By levels: L1-L2: No spinal stenosis or foraminal compromise. L2-L3: No spinal stenosis or foraminal compromise. L3-L4: No spinal stenosis or foraminal compromise. L4-L5: Postsurgical changes are present at L4-L5. As was noted on MRI, there appears to be a small volume of epidural scarring along the ventral left aspect of the canal near the lateral recess. There is no canal stenosis at this level. There is moderate left and mild right neuroforaminal narrowing. L5-S1: No spinal stenosis or foraminal compromise. IMPRESSION IMPRESSION: 1. Postsurgical changes at L4-L5 without thecal sac narrowing. There is no canal stenosis, the canal measures over 10 mm in AP diameter at every level. 2. There appears to be a small volume of epidural scarring along the ventral left aspect of L4-L5 near the left lateral recess. This is concordant with the MRI findings. 3. 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 [facility] CT Lumbar spine W contrast I VOrdered By: Vin Raymond on 08-28-2021 [facility] Work Phone: CT SPINE LUMBAR WITH CONTRAS Ton 08-28-2021 CT SPINE LUMBAR WITH CONTRAST EXAM: CT SPINE LUMBAR WITH CONTRAST, 08/24/2021 15:00 PM COMPARISON: MR lumbar spine dated August 24, 2021 CLINICAL INDICATIONS: [address] myelogram; RELEVANT CLINICAL HISTORY: R20.0:Numbness and tingling of both feet R20.2:Numbness and tingling of both feet M54.16:Lumbar radiculopathy TECHNIQUE: A series of transaxial multislice computerized tomographic thin section source images of the lumbar spine are obtained with helical technique following intrathecal administration of nonionic contrast. Reformats: Axial, sagittal, coronal. CONTRAST: iohexol (OMNIPAQUE) 180 MG/ML injection 1-30 mL; Route of Administration: Intravenous; Dose: 12 mL. FINDINGS: 5 lumbar type vertebral bodies with trace anterolisthesis of L4 and L5. Vertebral bodies are normal in height. Mild paraspinal soft tissue scarring is present at L4-L5 from prior microdiscectomy. No fluid collections. Degeneration of the L4-L5 disc space. The thecal sac opacifies well with contrast. The roots of the cauda equina are unremarkable. There is no thecal sac effacement at the level of L4-L5 or elsewhere within the lumbar spinal canal. By levels: L1-L2: No spinal stenosis or foraminal compromise. L2-L3: No spinal stenosis or foraminal compromise. L3-L4: No spinal stenosis or foraminal compromise. L4-L5: Postsurgical changes are present at L4-L5. As was noted on MRI, there appears to be a small volume of epidural scarring along the ventral left aspect of the canal near the lateral recess. There is no canal stenosis at this level. There is moderate left and mild right neuroforaminal narrowing. L5-S1: No spinal stenosis or foraminal compromise. IMPRESSION: 1. Postsurgical changes at L4-L5 without thecal sac narrowing. There is no canal stenosis, the canal measures over 10 mm in AP diameter at every level. 2. There appears to be a small volume of epidural scarring along the ventral left aspect of L4-L5 near the left lateral recess. This is concordant with the MRI findings. 3. 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 Normal [facility] CT Lumbar spine W contrast I [place] 08-24-2021 Radiology Study observation (narrative) [facility] GENERAL PROCEDUREon 08-25-19 Radiology Study observation (narrative) [facility] No Panel InformationOrdered By: Vin Raymond on 08-24-2021 [facility] Work Phone: RF Guidance for injection of Lumbar spineon 08-24-2021 IMPRESSION: 1. Successful fluoroscopic-guided intrathecal contrast injections for a CT lumbar spine myelogram. 2. Please see CT report for further information. 3. Thank you for this consultation. I, Vin Raymond M.D., attest that I was present and provided direct supervision of this procedure. I personally viewed and interpreted these images and I have reviewed and approved this report. OLOGY EXAM: XR FLUORO MYELOGRAM LUMBAR ONLY, 08/24/2021 14:33 PM CLINICAL INDICATIONS: 31 years Female eval compression at prior laminotomy site RELEVANT CLINICAL HISTORY: R20.0:Numbness and tingling of both feet R20.2:Numbness and tingling of both feet M54.16:Lumbar radiculopathy COMPARISON: MRI of the lumbar spine on 07/13/2021. TECHNIQUE AND FINDINGS: The examination was performed by KINGA Escobar. Fluoro time: 1.0 minutes Consent: The risks (including, but not limited to bleeding, infection, headache, and nerve damage), benefits, and alternatives of procedure were discussed with the patient who provided written and verbal consent. Position: The patient was placed in a prone position on the fluoroscopy table. The overlying skin was marked, prepped and sterilely draped and prepped utilizing sterile barrier technique at the appropriate vertebral body level. Procedure: A time-out was performed. 2 mL of 1% lidocaine was used to locally anesthetize the puncture site. Lumbar puncture was performed under fluoroscopic guidance at the L2-L3 interlaminar space using a 3.5 inch 22 gauge spinal needle. 12 mL of Omnipaque 180 was then injected for a CT lumbar spine myelogram. The needle was then removed and a bandage applied to the site. Total needle time was from 1355 to 1359 hours. The patient tolerated the procedure well without any immediate complications. Blood loss: None. RADIOLOGY Vin Raymond MD - 08/24/2021 EXAM: XR FLUORO MYELOGRAM LUMBAR ONLY, 08/24/2021 14:33 PM CLINICAL INDICATIONS: 31 years Female eval compression at prior laminotomy site RELEVANT CLINICAL HISTORY: R20.0:Numbness and tingling of both feet R20.2:Numbness and tingling of both feet M54.16:Lumbar radiculopathy COMPARISON: MRI of the lumbar spine on 07/13/2021. TECHNIQUE AND FINDINGS: The examination was performed by KINGA Escobar. Fluoro time: 1.0 minutes Consent: The risks (including, but not limited to bleeding, infection, headache, and nerve damage), benefits, and alternatives of procedure were discussed with the patient who provided written and verbal consent. Position: The patient was placed in a prone position on the fluoroscopy table. The overlying skin was marked, prepped and sterilely draped and prepped utilizing sterile barrier technique at the appropriate vertebral body level. Procedure: A time-out was performed. 2 mL of 1% lidocaine was used to locally anesthetize the puncture site. Lumbar puncture was performed under fluoroscopic guidance at the L2-L3 interlaminar space using a 3.5 inch 22 gauge spinal needle. 12 mL of Omnipaque 180 was then injected for a CT lumbar spine myelogram. The needle was then removed and a bandage applied to the site. Total needle time was from 1355 to 1359 hours. The patient tolerated the procedure well without any immediate complications. Blood loss: None. IMPRESSION IMPRESSION: 1. Successful fluoroscopic-guided intrathecal contrast injections for a CT lumbar spine myelogram. 2. Please see CT report for further information. 3. Thank you for this consultation. I, Vin Raymond M.D., attest that I was present and provided direct supervision of this procedure. I personally viewed and interpreted these images and I have reviewed and approved this report. [facility] Radiology Study observation (narrative) [facility] XR FLUORO MYELOGRAM LUMBAR O NLYon 08-24-2021 XR FLUORO MYELOGRAM LUMBAR ONLY EXAM: XR FLUORO MYELOGRAM LUMBAR ONLY, 08/24/2021 14:33 PM CLINICAL INDICATIONS: 31 years Female eval compression at prior laminotomy site RELEVANT CLINICAL HISTORY: R20.0:Numbness and tingling of both feet R20.2:Numbness and tingling of both feet M54.16:Lumbar radiculopathy COMPARISON: MRI of the lumbar spine on 07/13/2021. TECHNIQUE AND FINDINGS: The examination was performed by KINGA Escobar. Fluoro time: 1.0 minutes Consent: The risks (including, but not limited to bleeding, infection, headache, and nerve damage), benefits, and alternatives of procedure were discussed with the patient who provided written and verbal consent. Position: The patient was placed in a prone position on the fluoroscopy table. The overlying skin was marked, prepped and sterilely draped and prepped utilizing sterile barrier technique at the appropriate vertebral body level. Procedure: A time-out was performed. 2 mL of 1% lidocaine was used to locally anesthetize the puncture site. Lumbar puncture was performed under fluoroscopic guidance at the L2-L3 interlaminar space using a 3.5 inch 22 gauge spinal needle. 12 mL of Omnipaque 180 was then injected for a CT lumbar spine myelogram. The needle was then removed and a bandage applied to the site. Total needle time was from 1355 to 1359 hours. The patient tolerated the procedure well without any immediate complications. Blood loss: None. IMPRESSION: 1. Successful fluoroscopic-guided intrathecal contrast injections for a CT lumbar spine myelogram. 2. Please see CT report for further information. 3. Thank you for this consultation. I, Vin Raymond M.D., attest that I was present and provided direct supervision of this procedure. I personally viewed and interpreted these images and I have reviewed and approved this report. Normal [facility] MRI SPINE LUMBAR WITH AND WI THOUT CONTRASTon 07-26-2021 MRI SPINE LUMBAR WITH AND WITHOUT CONTRAST EXAM: MRI SPINE LUMBAR WITH AND WITHOUT CONTRAST, 07/13/2021 17:16 PM COMPARISON: MRI lumbar spine March 27, 2019. CLINICAL INDICATIONS: Low back pain, prior surgery, new symptoms. Lumbar radiculopathy, prior surgery, new symptoms. S/p L4-5 lami x 2 with worsening symptoms x 6 months LLE EHL weakness. M54.16:Lumbar radiculopathy M54.42:Acute bilateral low back pain with bilateral sciatica M54.41:Acute bilateral low back pain with bilateral sciatica Age: 31 years Gender: Female TECHNIQUE: A series of sagittal and axial multisequence images of the lumbar spine were obtained both before and after intravenous administration of gadolinium-based contrast using standard protocol. Type: gadoterate Meglumine (DOTAREM) 5 MMOL/10ML injection 3-60 mL Dose: 25 mL FINDINGS: Status post laminectomy at L4-5, with scarring in the overlying dorsal soft tissues. Alignment is normal. Vertebral bodies are within normal limits in height and marrow signal. Disc dessication and loss of disc height are noted at multiple levels. Conus and cauda equina are within normal limits in signal and position. By levels: L1-L2: No disc herniation. No canal or foraminal stenosis. L2-L3: No disc herniation. No canal or foraminal stenosis. L3-L4: Small central disc protrusion. Unchanged moderate canal stenosis. Mild bilateral foraminal stenosis. L4-L5: There is a T2-hypointense ventral epidural abnormality in the left subarticular and foraminal zones, effacing the left lateral recess. There is patchy enhancement and intermixed areas of nonenhancement in this location. Overall size of this abnormality is decreased from the preoperative MRI. Most of this finding probably represents postoperative changes rather than recurrent disc herniation. Central spinal canal stenosis is now mild, substantially decreased in magnitude from the prior study. Moderate bilateral foraminal stenosis. L5-S1: Disc bulge. Prominent ventral epidural fat. Moderate canal stenosis. Moderate right foraminal stenosis. IMPRESSION: Status post laminectomy and discectomy at L4-5. At this level, there is a T2-hypointense ventral epidural abnormality in the left subarticular and foraminal zones, effacing the left lateral recess. There is patchy enhancement and intermixed areas of nonenhancement in this location. Overall size of this abnormality is decreased from the preoperative MRI. Most of this finding probably represents postoperative changes rather than recurrent disc herniation. Central spinal canal stenosis is now mild, substantially decreased in magnitude from the prior study. Moderate canal stenosis at L3-4 and L5-S1. Neural foraminal narrowing at multiple levels, including moderate bilateral L4 and right L5 neural foraminal narrowing. Normal [facility] XR SPINE LUMBOSACRAL 5 VIEWS on 06-26-2021 XR SPINE LUMBOSACRAL 5 VIEWS EXAM: 4 view lumbar spine with flexion-extension VIEWS, 06/26/2021 09:59 AM COMPARISON: March 28, 2019 CLINICAL INDICATIONS: PAIN RELEVANT CLINICAL HISTORY: M54.50:Low back pain, unspecified back pain laterality, unspecified chronicity, unspecified whether sciatica present AP,LAT,FLEX,EXT 4 VIEWS; FINDINGS: 4 images obtained. There are 5 lumbar vertebral bodies identified. No compression deformities. There is disc disease at L4-5 and L5-S1. Facets are aligned. No spondylolisthesis or spondylolysis. No spinal instability with flexion or extension IMPRESSION: Disc disease at L4-5 and L5-S1 No spinal instability with flexion or extension Normal [facility] XR Spine Lumbar and Sacrum 5 Viewson 06-26-2021 IMPRESSION: Disc disease at L4-5 and L5-S1 No spinal instability with flexion or extension OLOGY EXAM: 4 view lumbar spine with flexion-extension VIEWS, 06/26/2021 09:59 AM COMPARISON: March 28, 2019 CLINICAL INDICATIONS: PAIN RELEVANT CLINICAL HISTORY: M54.50:Low back pain, unspecified back pain laterality, unspecified chronicity, unspecified whether sciatica present AP,LAT,FLEX,EXT 4 VIEWS; FINDINGS: 4 images obtained. There are 5 lumbar vertebral bodies identified. No compression deformities. There is disc disease at L4-5 and L5-S1. Facets are aligned. No spondylolisthesis or spondylolysis. No spinal instability with flexion or extension RADIOLOGY Anna Heaton D O - 06/26/2021 EXAM: 4 view lumbar spine with flexion-extension VIEWS, 06/26/2021 09:59 AM COMPARISON: March 28, 2019 CLINICAL INDICATIONS: PAIN RELEVANT CLINICAL HISTORY: M54.50:Low back pain, unspecified back pain laterality, unspecified chronicity, unspecified whether sciatica present AP,LAT,FLEX,EXT 4 VIEWS; FINDINGS: 4 images obtained. There are 5 lumbar vertebral bodies identified. No compression deformities. There is disc disease at L4-5 and L5-S1. Facets are aligned. No spondylolisthesis or spondylolysis. No spinal instability with flexion or extension IMPRESSION IMPRESSION: Disc disease at L4-5 and L5-S1 No spinal instability with flexion or extension [facility] Radiology Study observation (narrative) [facility] XR Spine Lumbar and Sacrum 5 ViewsOrdered By: Anna Heaton on 06-26-2021 [facility] Work Phone: XR CHEST PA AND LATERALon XR CHEST PA AND LATERAL CLINICAL HISTORY: Fever and cough. COMPARISON: None. FINDINGS: PA and lateral views of the chest obtained. Cardiomediastinal silhouette is normal. Lungs are clear, no evidence of infiltrate or pleural effusion. No suspicious nodule or mass. No evidence of pneumothorax. No acute bony abnormality. IMPRESSION: No acute abnormality. Normal [facility] NOVEL CORONAVIRUSon 02-29-20 21 NARRATIVE This test was performed using isothermal ZAIRA and has been approved as Emergency Use Authorization (EUA) for the qualitative detection [id number] [facility] Comment on above: Performed By: #### C OVID #### Testing performed at [address] [address] SARS-CoV-2 (COVID-19) RNA ZAIRA+probe Ql (Unsp spec) Not detected Normal NOT DETECTED [facility] Comment on above: Result Comment: Nega tive results do not preclude SARS-CoV-2 infection and should not be used as the sole basis for treatment or other patient management decisions. Optimum specimen types and timing for peak viral levels during infections caused by SARS-CoV-2 has not been determined. The possibility of a false negative result should especially be considered if the patient's recent exposures or clinical presentation suggest that SARS-CoV-2 infection is probable, and diagnostic tests for other causes of illness (e.g., other respiratory illness) are negative. Collection of a new specimen and re-testing may be necessary if the patient is critically ill or clinically deteriorating. Performed By: #### C OVID #### Testing performed at [address] [place] [address] COVID-19 PCRon 01-28-2020 SARS-CoV-2 (COVID-19) RNA ZAIRA+probe Ql (Unsp spec) Not detected Normal Not Detected [facility] Comment on above: Result Comment: This nucleic acid amplification test was developed and its performance characteristics determined by [employer]. Nucleic acid amplification tests include PCR and TMA. This test has not been FDA cleared or approved. This test has been authorized by FDA under an Emergency Use Authorization (EUA). This test is only authorized for the duration of time the declaration that circumstances exist justifying the authorization of the emergency use of in vitro diagnostic tests for detection of SARS-CoV-2 virus and/or diagnosis of COVID-19 infection under section 564(b)(1) of the Act, 21 U.S.C. 360bbb-3(b) (1), unless the authorization is terminated or revoked sooner. When diagnostic testing is negative, the possibility of a false negative result should be considered in the context of a patient's recent exposures and the presence of clinical signs and symptoms consistent with COVID-19. An individual without symptoms of COVID-19 and who is not shedding SARS-CoV-2 virus would expect to have a negative (not detected) result in this assay. Performed By: #### C VDPCR #### [facility] [address] [place] [address] Juan Francisco Saldana BASIC METABOLIC PANELon 09-07 Anion gap [Moles/Vol] 14 mmol/L [facility] Calcium [Mass/Vol] 9.8 mg/dL [facility] Chloride [Moles/Vol] 99 mmol/L [facility] Comment on above: Please note: Triglyc eride levels of 600mg/dL or higher may positively bias chloride results by approximately 2.1 mmol CO2 [Moles/Vol] 27 mmol/L [facility] Creatinine [Mass/Vol] 0.79 mg/dL [facility] GFR/1.73 sq M predicted among blacks MDRD (S/P/Bld) [Vol rate/Area] mL/min/{1.73_m2} ml/min/1.73sq .m [facility] GFR/1.73 sq M predicted among non-blacks MDRD (S/P/Bld) [Vol rate/Area] mL/min/{1.73_m2} ml/min/1.73sq .m [facility] GFR/1.73 sq M predicted among non-blacks MDRD (S/P/Bld) [Vol rate/Area] Average GFR for 20-29 years old = 116. [facility] Comment on above: Chronic Kidney disea se, GFR = <60. Kidney failure, GFR = <15. The GFR estimate is not adjusted for extreme body surface area or acute process, nor has it been validated for women or ethnic groups other than and . Glucose post fast [Mass/Vol] 92 mg/dL [facility] Comment on above: NORMAL <100 mg/dL PREDIABETES 101-126 mg/dL DIABETES 126 mg/dL or higher Potassium [Moles/Vol] 3.8 mmol/L [facility] Sodium [Moles/Vol] 140 mmol/L [facility] Urea nitrogen [Mass/Vol] 10 mg/dL [facility] BETA HCG, QUAL, BLOODon 09-07 HCG ( test) Ql Negative [facility] CBC, EDIF, PLATELETon 2018 ABSOLUTE BASOPHIL COUNT 0.1 X10 [facility] Basophils/100 WBC (Bld) 0.7 % 0 - 2 % [facility] Differential cell count method Nom (Bld) AUTO DIFF % [facility] Eosinophils (Bld) [#/Vol] 0.10 10*3/uL X10 [facility] Eosinophils/100 WBC (Bld) 1.5 % 0 - 11 % [facility] Erythrocyte distribution width (RBC) [Ratio] 15.9 % High 11.5 - 14.5 % [facility] Hematocrit (Bld) [Volume fraction] 44.6 % 36 - 48 % [facility] Hemoglobin (Bld) [Mass/Vol] 15.4 g/dL [facility] Interpretation and review of laboratory results Abnormal [facility] Lymphocytes (Bld) [#/Vol] 1.20 10*3/uL X10 [facility] Lymphocytes/100 WBC (Bld) 13.4 % Low 20 - 55 % [facility] MCH (RBC) [Entitic mass] 29.7 pg 26 - 35 PG [facility] MCHC (RBC) [Mass/Vol] 34.5 g/dL [facility] MCV (RBC) [Entitic vol] 86.3 fL [facility] Monocytes (Bld) [#/Vol] 0.6 10*3/uL X10 [facility] Monocytes/100 WBC (Bld) 6.7 % 0 - 10 % [facility] Neutrophils (Bld) [#/Vol] 7.2 10*3/uL High [facility] Neutrophils/100 WBC (Bld) 77.7 % High 37 - 75 % [facility] Platelet mean volume (Bld) [Entitic vol] 7.9 fL [facility] Platelets (Bld) [#/Vol] 338 10*3/uL [facility] RBC (Bld) [#/Vol] 5.17 10*6/uL [facility] WBC (Bld) [#/Vol] 9.2 10*3/uL [facility] CBC, EDIF, PLATELETon 2018 ABSOLUTE BASOPHIL COUNT 0.1 X10 [facility] Basophils/100 WBC (Bld) 0.9 % 0 - 2 % [facility] Differential cell count method Nom (Bld) AUTO DIFF % [facility] Eosinophils #/vol (Bld) 0.20 10*3/uL X10 [facility] Eosinophils/100 WBC (Bld) 2.4 % 0 - 11 % [facility] Erythrocyte distribution width Ratio (RBC) 13.9 % 11.5 - 14.5 % [facility] Hematocrit Volume Fraction (Bld) 46.0 % 36 - 48 % [facility] Hemoglobin mass conc (Bld) 15.4 g/dL [facility] Lymphocytes #/vol (Bld) 1.80 10*3/uL X10 [facility] Lymphocytes/100 WBC (Bld) 22.5 % 20 - 55 % [facility] MCH Entitic mass (RBC) 29.4 pg 26 - 35 PG [facility] MCHC mass conc (RBC) 33.5 g/dL [facility] MCV Entitic volume (RBC) 87.7 fL [facility] Monocytes #/vol (Bld) 0.5 10*3/uL X10 [facility] Monocytes/100 WBC (Bld) 6.7 % 0 - 10 % [facility] Neutrophils #/vol (Bld) 5.4 10*3/uL [facility] Neutrophils/100 WBC (Bld) 67.5 % 37 - 75 % [facility] Platelet mean volume Entitic volume (Bld) 8.1 fL [facility] Platelets #/vol (Bld) 383 10*3/uL [facility] RBC #/vol (Bld) 5.24 10*6/uL [facility] WBC #/vol (Bld) 8.0 10*3/uL [facility] COMPREHENSIVE METABOLIC PANE Gregory 07-02-2018 Albumin mass conc 5.1 G/dl High 3.5 - 5 G/dl [facility] Albumin/Globulin mass ratio 1.6 {ratio} [facility] ALP enzyme act/vol 63 U/L [facility] ALT enzyme act/vol 46 U/L [facility] AST enzyme act/vol 41 U/L High [facility] Bilirubin mass conc 0.3 mg/dL [facility] Calcium mass conc 9.8 mg/dL [facility] Chloride molar conc 103 mmol/L [facility] Comment on above: Please note: Triglyc eride levels of 600mg/dL or higher may positively bias chloride results by approximately 2.1 mmol CO2 molar conc 26 mmol/L [facility] Creatinine mass conc 0.85 mg/dL [facility] GFR/1.73 sq M predicted among blacks MDRD vol rate/area (S/P/Bld) mL/min/{1.73_m2} ml/min/1.73sq .m [facility] GFR/1.73 sq M predicted among non-blacks MDRD vol rate/area (S/P/Bld) mL/min/{1.73_m2} ml/min/1.73sq .m [facility] GFR/1.73 sq M predicted among non-blacks MDRD vol rate/area (S/P/Bld) Average GFR for 20-29 years old = 116. [facility] [employer] Comment on above: Chronic Kidney disea se, GFR = <60. Kidney failure, GFR = <15. The GFR estimate is not adjusted for extreme body surface area or acute process, nor has it been validated for women or ethnic groups other than and . Glucose fasting mass conc 114 mg/dL High [facility] [employer] Comment on above: NORMAL <100 mg/dL PREDIABETES 101-126 mg/dL DIABETES 126 mg/dL or higher Interpretation and review of laboratory results Abnormal [facility] Potassium molar conc 3.5 mmol/L [facility] Protein mass conc 8.3 g/dL High [facility] Sodium molar conc 142 mmol/L [facility] Urea nitrogen mass conc 11 mg/dL [facility] D-DIMER,QUANTITATIVEon 07-02 Fibrin D-dimer FEU mass conc (PPP) 0.33 [facility] [employer] LIPASEon 07-02-2018 Lipase enzyme act/vol 55 U/L 23 - 300 U/L [facility] [employer] TROPONINon 07-02-2018 Troponin I.cardiac mass conc ng/mL 0 - 0.08 ng/mL [facility] KNEE RIGHT 1 OR 2 Son 02-07 KNEE RIGHT [address] [facility] Department of Radiology [address] [place] [id number] Patient Name: MAMADOU BERRY : 1990 Sex: F Age: Race: White Pt. Location: Patient Status: O Ordered Date: 02/17/2018 11:15:00 AM Completed Date: 02/17/2018 11:15 AM Requesting Provider: HA RAYMOND Attending Provider: HA RAYMOND Report Copy To: Signs & Symptoms: S83.511A Sprain of anterior cruciate ligament of right knee, init I10 History: Jessi Comments: , Views (X-RAY, KNEE): AP, Lateral , Weight Bearing?: N , Views (X-RAY, KNEE): AP, Lateral , Weight Bearing?: N , , , Ordering Provider - HA RAYMOND MD , Exam: KNEE RIGHT 1 OR 2 S KNEE RIGHT 1 OR 2 VWS 02/17/2018 11:15 AM EST SIGNS AND SYMPTOMS: S83.511A Sprain of anterior cruciate ligament of right knee, init I10 TECHNOLOGIST COMMENTS: History of right knee surgery 02/06/2018. Ortho follow up. QUESTION FOR THE RADIOLOGIST: , Views (X-RAY, KNEE): AP, Lateral , Weight Bearing?: N , Views (X-RAY, KNEE): AP, Lateral , Weight Bearing?: N , , , Ordering Provider - HA RAYMOND MD , PROTOCOL: AP(PA) and Lateral views were obtained. COMPARISON: February 06, 2018 FINDINGS: Soft tissues: Mild swelling Bones: ACL repair Joints: Moderate effusion IMPRESSION: ACL repair with moderate effusion Electronically signed by:Ha Harvey. Transcribed by: [email or web address], User Resident: Electronically Signed by: HA HARVEY @ 02/17/2018 03:54 PM Normal [facility] Comment on above: Order Comment: , Aidae ws (X-RAY, KNEE): AP, Lateral , Weight Bearing?: N , Views (X-RAY, KNEE): AP, Lateral , Weight Bearing?: N , , , Ordering Provider - HA RAYMOND MD , Operative Reporton 8 Operative Report MR#: [id number] [facility] Pt. Name: Mamadou Berry Room #: 0C Discharge 02/06/2018 Date: Birthdate: 1990 OPERATIVE REPORT DATE OF SURGERY: 02/06/2018 SURGEON: Ha Raymond M.D. PROGRAM DIRECTOR CABLE TELEVISION: Naima Elliott MD PREOPERATIVE DIAGNOSIS: Right knee recurrent ACL tear. POSTOPERATIVE DIAGNOSIS: Right knee recurrent ACL tear. PROCEDURE: Right knee arthroscopy revision and ACL reconstruction with Achilles tendon allograft. ANESTHESIA: General with regional nerve block. FLUIDS: Per Anesthesia record. ESTIMATED BLOOD LOSS: Minimal. IMPLANTS: RTI Achilles tendon allograft, size 10 bone block, Arthrex 8 x 23 mm metal interference screw and 10 x 28 mm BioComposite interference screw for the tibia, and an 11 x 20 mm bone staple on the tibia. COMPLICATIONS: None. INDICATIONS: The patient is a 27-year-old female, who has history of right knee ACL reconstruction at outside facility. She had subsequent debridements and then presented to my clinic with complaints of instability and pain in the right knee. On examination, she had positive Lilly's and MRI was obtained, which showed evidence of vertical femoral tunnel and retear of her ACL graft. CT scan was obtained, which showed some mild osteolysis of the tibial tunnel measuring at most 12 mm. 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 This would be in form of right knee arthroscopy, possible debridement, and bone grafting of the tibial tunnel versus ACL revision reconstruction with Achilles tendon allograft. The risks, benefits, and alternatives to surgery including the risks of bleeding, infection, damage to nerve and blood vessels, anesthesia, retear, failure of any repair or reconstruction, hardware complication, blood clots, stiffness, arthritis, pain, dysfunction, and the need for further surgery were explained. All questions were answered. The patient acknowledged understanding and elected to proceed. Informed consent was obtained in clinic and in the preoperative area. PROCEDURE IN DETAIL: The patient was identified in the preoperative area. The operative site was marked by myself. Again, the risks, benefits, and alternatives of surgery were explained and informed consent was obtained. The operative site was marked by myself. She was taken by Anesthesia for regional nerve block, then to operative theater, placed in supine position. General anesthesia was induced without complication. Preoperative antibiotics were administered. Preoperative examination showed full range of motion. Stable varus-valgus stress. Positive Lilly. Negative posterior drawer. Positive pivot shift. Stable posteromedial and posterolateral stressing. The right lower extremity was prepped and draped in usual sterile fashion. Proper time-out was done. EPC cuff was placed on the left leg. I began with the anterolateral portal incision and camera was introduced in patellofemoral compartment. No loose bodies were seen. No significant chondromalacia was seen in the patella or trochlea. The medial and lateral gutters were entered and there were no loose bodies or meniscal capsular tears. Medial compartment was then entered and under spinal needle guidance, medial portal incision was made. Probe was introduced. Medial meniscus was probed and was truncated likely due to previous surgery, but no new tears were seen. There was some irregularity of the medial femoral condyle cartilage that was debrided, but no full-thickness tears. Notch was then entered and there is obvious absence of the majority of the graft and the femoral screw was visualized in a vertical position. Shaver was introduced and the remnants of the ACL were completely debrided. There was a small amount of bony growth in the tibial insertion that was also excised. Lateral compartment was entered. Small amount of fraying of the anterior horn extending to the body of the lateral meniscus was seen and partial lateral meniscectomy was undertaken with a shaver back to stable edges. There was also grade 2 chondromalacia on the medial aspect of the lateral tibial plateau that was debrided to stable edges with the shaver. At this point then, we made a longitudinal incision utilizing previous surgical incision on the anteromedial tibia and Bovie cautery was utilized for hemostasis. We dissected down to the anterior cortex. The tibial metal interference screw was visualized and screwdriver was used to remove this satisfactorily. There was no significant osteolysis seen. At this point, we elected to proceed with reconstruction. A guide pin was placed through the previous tibial aperture and advanced into the knee and this exited the posterior aspect of the anterior horn of the lateral meniscus. We then utilized a 4.5 mm [place] Reamer followed by a 10 mm Larder Cook to make a tunnel. Curette was utilized to remove soft tissue debris from within the tunnel aperture. We then visualized the tunnel and had good bony headley. Prior to this on the back table, a size 10 bone block Achilles tendon allograft from RTI was whip-stitched and passing suture placed through the bone block and held in tension for 10 minutes. We then turned our attention to the femoral tunnel and accessory medial portal was made with spinal needle guidance and then a Beath pin was advanced in retrograde fashion out the lateral thigh. We then reamed with 4.5 mm [place] Reamer full thickness and then a low-profile 10 mm reamer over the beath pin to approximately a 30 mm socket. Bony debris was excised. Posterior wall was intactt. At this point, we then brought the graft on the back table after passing sutures through the tibial tunnel. We advanced the bone block through the tibia and into the femoral socket. With the knee hyperflexed, we placed a malleted a water reuse program manager followed by guidewire in an 8 x 23 mm Arthrex metal interference screw with excellent purchase. We then held tension on the tibial aspect of the graft, cycled the knee 20 times, and with the knee in full extension and posterior drawer force, tibial staple was placed approximately 1 cm distal to the aperture. We then placed a guidewire and 10 x 20 mm BioComposite interference screw was advanced in retrograde fashion again with posterior drawer force with excellent fixation. The excess graft was excised. There was no evidence of impingement. We had stable Lilly after the reconstruction. At this point, the knee was drained of excess fluid and incisions were copiously irrigated. We closed the portal incisions with a subcuticular Biosyn suture. The anterior tibial incision was closed with 0-Vicryl and 2-0 Vicryl followed by subcuticular Biosyn suture. Sterile dressing was placed followed by Polar Care and a hinged knee brace locked in extension. The patient was extubated without complication, taken to PACU in stable condition. All needle and sponge counts were correct x2. I was present, scrubbed, and participated in the entire procedure. POSTOPERATIVE COURSE: The patient will be discharged home nonweightbearing to the right lower extremity. She will be given Monroe for pain control and aspirin for DVT prophylaxis. I will see her back in the clinic in 5 days for a wound check and initiation of physical therapy. Electronically Signed by: Ha Raymond M.D. 02/16/2018 10:43 A Ha Raymond M.D. Date Dict: 02/06/2018/01:17 P/Ha Raymond M.D. Date Trans: 02/07/2018 12:12 Giovana/aliyah [id number] cc: Fatemeh Palencia M.D. [address], [facility] [address] [place] [facility] KNEE RIGHT 1 OR 2 [facility] 01-10 KNEE RIGHT [address] [facility] Department of Radiology [address] [place] [id number] Patient Name: MAMADOU BERRY : 1990 Sex: F Age: Race: White Pt. Location: Patient Status: O Ordered Date: 02/06/2018 7:10:00 AM Completed Date: 02/06/2018 01:14 PM Requesting Provider: HA RAYMOND Attending Provider: HA RAYMOND Report Copy To: Signs & Symptoms: right knee scope History: right knee scope Comments: right knee scope Exam: KNEE RIGHT 1 OR 2 VWS KNEE RIGHT 1 OR 2 VWS 02/06/2018 1:14 PM EST SIGNS AND SYMPTOMS: right knee scope TECHNOLOGIST COMMENTS: right knee hardware removal total fluoro time 4 seconds magenta c-arm out of room at 1:10 pm QUESTION FOR THE RADIOLOGIST: right knee scope PROTOCOL: AP(PA) and Lateral views were obtained. COMPARISON: None FINDINGS: Soft tissues: Bones: Joints: IMPRESSION: Documentation Electronically signed by:Ha Harvey. Transcribed by: [email or web address], User Resident: Electronically Signed by: HA HARVEY @ 02/06/2018 01:22 PM Normal [facility] Comment on above: Order Comment: right knee scope POC GLUCOSE LABon 02-06-2018 Glucose mass conc 100 mg/dL Normal 70-[address] [facility] Comment on above: Performed By: #### [id number] #### [address] LOWER EXTREMITY WO CONTRA ST RIGHTon 12-19-2017 CT LOWER EXTREMITY WO CONTRAST RIGHT [facility] Department of Radiology [address] [place] [address] Patient Name: MAMADOU BERRY : 1990 Sex: F Age: Race: NA Pt. Location: 84 Patient Status: D Ordered Date: 12/08/2017 5:00:00 PM Completed Date: 12/19/2017 05:53 PM Requesting Provider: HA RAYMOND Attending Provider: HA RAYMOND Report Copy To: SELF, REFERRED Signs & Symptoms: M25.569 Pain in unspecified knee I10 History: [place] phone [phone] Needs F/U with ortho [employer] [place] REQ [id number] REF [phone] Comments: ACL tunnel osteolysis Exam: CT LOWER EXTREMITY WO CONTRAST RIGHT CT LOWER EXTREMITY WO CONTRAST RIGHT 12/19/2017 5:53 PM EDT SIGNS AND SYMPTOMS: M25.569 Pain in unspecified knee I10 TECHNOLOGIST COMMENTS:H/o ACL tear x 3 with surgery. C/o RT knee pain. QUESTION FOR THE RADIOLOGIST: ACL tunnel osteolysis PROTOCOL: Axial CT images of the extremity were obtained without IV contrast. TECHNIQUE: Multidetector CT axial slices of the right knee were obtained without IV contrast. Multiplanar reformats, MIP, volume rendered 3-D images were generated on a separate workstation and reviewed to further define anatomy and possible pathology. COMPARISON: None. FINDINGS: Skeleton: ACL repair with relatively normal appearance to the femoral tunnel but with the tibial tunnel showing osteolysis approximately 10 mm mediolaterally, and 12 mm AP deep to the anchor. At the tibial anchor the tunnel measures 9 mm AP. Muscles: Intact. Tendons: Intact. Collateral ligaments: Intact with a small charu of MCL calcification, probably old injury. Patellofemoral ligaments: Intact. ACL: No discrete ACL fibers are visible along the graft. PCL: Intact. Articular cartilage: Intact. Perhaps some early narrowing medially. Joint cavity: Small effusion. Loose bodies and small bony fragments near the tibial tunnel. IMPRESSION: Presumably failed right ACL reconstruction. The tibial tunnel proximal to anchor shows osteolysis measuring 10 mm mediolaterally and 12 mm AP for a length of 15 mm. Small joint effusion with loose bodies. Electronically signed by:Ha Harvey. Transcribed by: [email or web address], User Resident: Electronically Signed by: HA HARVEY @ 12/21/2017 11:35 AM Normal [facility] Comment on above: Order Comment: ACL t unnel osteolysis LOWER EXTREMITY JOINT SURVEY on 12-08-2017 LOWER EXTREMITY JOINT SURVEY [facility] Department of Radiology [address] [place] [id number] Patient Name: MAMADOU BERRY : 1990 Sex: F Age: Race: NA Pt. Location: 84 Patient Status: O Ordered Date: 12/08/2017 4:15:00 PM Completed Date: 12/08/2017 04:13 PM Requesting Provider: HA RAYMOND Attending Provider: HA RAYMOND Report Copy To: Signs & Symptoms: M25.569 Pain in unspecified knee I10 History: Jessi Comments: , , , Ordering Provider - HA RAYMOND MD , Exam: LOWER EXTREMITY JOINT SURVEY LOWER EXTREMITY JOINT SURVEY 12/08/2017 4:13 PM EDT SIGNS AND SYMPTOMS: M25.569 Pain in unspecified knee I10 TECHNOLOGIST COMMENTS: Patient has right knee pain. History 3 surgeries to right knee. QUESTION FOR THE RADIOLOGIST: , , , Ordering Provider - HA RAYMOND MD , PROTOCOL: Multiple segmental images were obtained and stitching software was utilized to acquire an AP view of the lower extremities in a standing position. COMPARISON: FINDINGS: Lower extremity joint survey: Right ACL repair with mild medial weightbearing arthritis. Valgus tilt on both ankles, more so on the right. Right weightbearing axis intersects 8 mm medial of the interspinous tibia. Left weightbearing axis intersects the interspinous tibia. Right lower extremity length is 1 cm shorter. Right tibia and right femur are each 5 mm shorter than left side. Right side shows genu varus of 1 degree. Left side shows genu valgus 7 degrees. IMPRESSION: 1. Status post right ACL repair with moderate medial weightbearing osteoarthritis. 2. Genu varus of 1 degree on the right knee and genu valgus of 7 degrees valgus on the left knee 3. About 1 cm leg length discrepancy with right-side shorter, pelvis shows right side down tilt of 3 degrees as a result Electronically signed by:Ha Harvey. Transcribed by: [email or web address], User Resident: Electronically Signed by: HA HARVEY @ 12/08/2017 04:39 PM Normal [facility] Comment on above: Order Comment: , , = ========= , Ordering Provider - HA RAYMOND MD , Vital Signs Date Time Vital Sign Value Performing Clinician [place] pate 10-30-2023 10:03-0400 Diastolic blood pressure 91 mm[Hg] Dayron Foskey DO Work Phone: [facility] 10-30-2023 10:03-0400 Heart rate 85 /min Dayron Foskey DO Work Phone: [facility] [employer] 10-30-2023 10:03-0400 Respiratory rate 14 /min Dayron Foskey DO Work Phone: [facility] [employer] 10-30-2023 10:03-0400 SaO2% (BldA) [Mass fraction] 98 % Dayron Foskey DO Work Phone: [facility] 10-30-2023 10:03-0400 Systolic blood pressure 168 mm[Hg] Dayron Foskey DO Work Phone: [facility] 10-30-2023 09:44-0400 Body temperature 98.2 [degF] Dayron Tinsley DO Work Phone: [facility] 09-05-2021 11:08-0400 Body height 175.3 cm Margaret Boo MD Work Phone: [facility] 09-05-2021 11:08-0400 Body mass index (BMI) [Ratio] 42.83 kg/m2 Margaret Boo MD Work Phone: [facility] 09-05-2021 11:08-0400 Body temperature 97.11 [degF] Margaret Boo MD Work Phone: [facility] 09-05-2021 11:08-0400 Body weight 131.54 kg Margaret Boo MD Work Phone: [facility] 09-05-2021 11:08-0400 Heart rate 81 /min Margaret Boo MD Work Phone: [facility] 09-05-2021 11:08-0400 SaO2% (BldA) [Mass fraction] 97 % Margaret Boo MD Work Phone: [facility] 08-24-2021 15:16-0400 Diastolic blood pressure 80 mm[Hg] Margaret Boo MD Work Phone: [facility] 08-24-2021 15:16-0400 Heart rate 73 /min Margaret Boo MD Work Phone: [facility] 08-24-2021 15:16-0400 Respiratory rate 14 /min Margaret Boo MD Work Phone: [facility] 08-24-2021 15:16-0400 SaO2% (BldA) [Mass fraction] 98 % Margaret Boo MD Work Phone: [facility] 08-24-2021 15:16-0400 Systolic blood pressure 127 mm[Hg] Margaret Boo MD Work Phone: [facility] 08-24-2021 14:48-0400 Body temperature 98.4 [degF] Margaret Boo MD Work Phone: [facility] 08-24-2021 14:48-0400 Diastolic blood pressure 58 mm[Hg] Margaret Boo MD Work Phone: [facility] 08-24-2021 14:48-0400 Heart rate 66 /min Margaret Boo MD Work Phone: [facility] 08-24-2021 14:48-0400 Respiratory rate 16 /min Margaret Boo MD Work Phone: [facility] 08-24-2021 14:48-0400 SaO2% (BldA) [Mass fraction] 97 % Margaret Boo MD Work Phone: [facility] 08-24-2021 14:48-0400 Systolic blood pressure 123 mm[Hg] Margaret Boo MD Work Phone: [facility] 08-24-2021 14:00-0400 Diastolic blood pressure 73 mm[Hg] Jeyson Medina MD Work Phone: [facility] 08-24-2021 14:00-0400 Respiratory rate 17 /min Jeyson Medina MD Work Phone: [facility] 08-24-2021 14:00-0400 SaO2% (BldA) [Mass fraction] 95 % Jeyson Medina MD Work Phone: [facility] 08-24-2021 14:00-0400 Systolic blood pressure 140 mm[Hg] Jeyson Medina MD Work Phone: [facility] 08-08-2021 11:04-0400 Body height 175.3 cm Margaret Boo MD Work Phone: [facility] 08-08-2021 11:04-0400 Body mass index (BMI) [Ratio] 42.83 kg/m2 Margaret Boo MD Work Phone: [facility] 08-08-2021 11:04-0400 Body temperature 97 [degF] Margaret Boo MD Work Phone: [facility] 08-08-2021 11:04-0400 Body weight 131.54 kg Margaret Boo MD Work Phone: [facility] 08-08-2021 11:04-0400 Heart rate 107 /min Margaret Boo MD Work Phone: [facility] 08-08-2021 11:04-0400 SaO2% (BldA) [Mass fraction] 97 % Margaret Boo MD Work Phone: [facility] 07-13-2021 16:23-0400 Body height 175.3 cm Faith BROCK-C Work Phone: [facility] 07-13-2021 16:23-0400 Body mass index (BMI) [Ratio] 41.35 kg/m2 Faith BROCK-C Work Phone: [facility] 07-13-2021 16:23-0400 Body weight 127.01 kg Faith BROCK-C Work Phone: [facility] 07-13-2021 16:23-0400 Diastolic blood pressure 103 mm[Hg] Faith BROCK-C Work Phone: [facility] 07-13-2021 16:23-0400 Heart rate 105 /min Faith Fela PA-C Work Phone: [facility] 07-13-2021 16:23-0400 Systolic blood pressure 145 mm[Hg] Faith Davis PA-C Work Phone: [facility] 06-26-2021 10:17-0400 Body height 175.3 cm Faith Davis PA-C Work Phone: [facility] 06-26-2021 10:17-0400 Body mass index (BMI) [Ratio] 39.72 kg/m2 Faith Davis PA-C Work Phone: [facility] 06-26-2021 10:17-0400 Body temperature 97.11 [degF] Faith Davis PA-C Work Phone: [facility] 06-26-2021 10:17-0400 Body weight 122.02 kg Faith Davis PA-C Work Phone: [facility] 06-26-2021 10:17-0400 Heart rate 96 /min Faith Davis PA-C Work Phone: [facility] 06-26-2021 10:17-0400 SaO2% (BldA) [Mass fraction] 100 % Faith Davis PA-C Work Phone: [facility] 10-10-2018 14:090400 Height 175.3 cm [facility] 10-10-2018 14:08-0400 Body Temperature 98.01 [degF] [facility] 10-10-2018 14:08-0400 BP Diastolic 99 mm[Hg] [facility] 10-10-2018 14:08-0400 BP Systolic 151 mm[Hg] [facility] 10-10-2018 14:08-0400 Pulse (Heart Rate) 83 /min [facility] 10-10-2018 14:08-0400 Pulse Oximetry 99 % [facility] 10-10-2018 14:08-0400 Respiratory Rate 20 /[facility] 01:02-0400 BP Diastolic 70 mm[Hg] [facility] 09-24-2018 01:02-0400 BP Systolic 159 mm[Hg] [facility] 09-24-2018 01:02-0400 Pulse (Heart Rate) 102 /min [facility] 09-24-2018 01:02-0400 Pulse Oximetry 98 % [facility] 09-24-2018 01:02-0400 Respiratory Rate 18 /min [facility] 09-23-2018 23:10-0400 Height 175.3 cm [facility] 09-23-2018 23:09-0400 Body Temperature 98.29 [degF] [facility] 09-22-2018 20:09-0400 Height 175.3 cm [facility] 09-22-2018 20:08-0400 Body Temperature 97.7 [degF] [facility] 09-22-2018 20:08-0400 BP Diastolic 90 mm[Hg] [facility] 09-22-2018 20:08-0400 BP Systolic 166 mm[Hg] [facility] 09-22-2018 20:08-0400 Pulse (Heart Rate) 106 /min [facility] 09-22-2018 20:08-0400 Pulse Oximetry 94 % [facility] 09-22-2018 20:08-0400 Respiratory Rate 18 /min [facility] 07-02-2018 19:00-0400 BP Diastolic 86 mm[Hg] [facility] 07-02-2018 19:00-0400 BP Systolic 171 mm[Hg] [facility] 07-02-2018 19:00-0400 Pulse (Heart Rate) 110 /min [facility] 07-02-2018 19:00-0400 Pulse Oximetry 93 % [facility] 07-02-2018 19:00-0400 Respiratory Rate 25 /min [facility] 07-02-2018 16:40-[address] [facility] Encounters Encounter Date Encounter Type Care Provider Facility Start: 10-30-2023 End: 10-30-2023 Emergency department patient visit Dayron Tinsley DO Work Phone: [facility] Start: 07-03-2023 End: 07-03-2023 Emergency department patient visit RAMONA SHEN [facility] Start: 04-18-2023 ambulatory FATEMEH M Paul [facility] Start: 11-22-2022 ambulatory FATEMEH M Paul [facility] Start: 09-05-2021 ambulatory SAFDAKen BOO Facility: [facility] Start: 09-05-2021 End: 09-05-2021 Office outpatient visit 15 minutes Margaret Boo MD Work Phone: [facility] Comment on above: Numbness and tinglin g of both feet (Primary Dx) Start: 08-24-2021 ambulatory SAFDAKen BOO Facility: [facility] Start: 08-24-2021 End: 08-24-2021 Subsequent hospital visit by physician Margaret Boo MD Work Phone: [facility] Start: 08-08-2021 ambulatory FATEMEH Damon PALENCIA Facility: [facility] Start: 08-08-2021 End: 08-08-2021 Office outpatient visit 15 minutes Margaret Boo MD Work Phone: [facility] Comment on above: Numbness and tinglin g of both feet (Primary Dx); Lumbar radiculopathy Start: 07-25-2021 ambulatory FATEMEH M HOY Facility: [facility] Start: 07-13-2021 ambulatory FATEMEH M HOY Facility: [facility] Start: 07-13-2021 End: 07-13-2021 Subsequent hospital visit by physician Faith Davis PA-C Work Phone: [facility] Comment on above: Arrived Start: 06-26-2021 ambulatory FATEMEH M HOY Facility: [facility] Start: 06-26-2021 End: 06-26-2021 Office outpatient visit 15 minutes Faith Davis PA-C Work Phone: [facility] Comment on above: Low back pain, unspe cified back pain laterality, unspecified chronicity, unspecified whether sciatica present (Primary Dx); Lumbar radiculopathy; Acute bilateral low back pain with bilateral sciatica; S/P lumbar microdiscectomy Start: 06-26-2021 End: 06-26-2021 Subsequent hospital visit by physician Faith Davis PA-C Work Phone: [facility] Comment on above: Arrived Start: 01-21-[address] FATEMEH PALENCIA Facility :[facility] Start: 06-29-[address] FATEMEH PALENCIA Facility :[facility] Start: 05-15-[address] FATEMEH PALENCIA Facility :[facility] Start: 01-25-2020 End: 01-26-[address] FATEMEH PALENCIA Facility:[facility] Start: 01-10-2020 End: 01-10-2020 ambulatory FATEMEH ANTHONY DO Facility:[facility] Start: 10-10-2018 End: 10-10-2018 Emergency department patient visit Dany Montes Work Phone: [facility] Start: 09-23-2018 End: 09-24-2018 Emergency department patient visit Delon Gutierrez Work Phone: [facility] Start: 09-22-2018 End: 09-22-2018 Emergency department patient visit Dayron Tinsley Work Phone: [facility] Start: 07-02-2018 End: 07-02-2018 Emergency department patient visit Kalen Oseguera Work Phone: [facility] Start: 02-17-2018 End: 02-18-2018 Patient encounter procedure HA RAYMOND Facility:[facility] Start: 02-06-2018 End: 02-07-2018 Patient encounter procedure DAYRON RAYMOND Facility:[facility] Start: 01-02-2018 End: 01-03-2018 Patient encounter procedure HA RAYMOND Facility:[facility] Start: 12-19-2017 End: 12-20-2017 Patient encounter procedure HA RAYMOND Facility:[facility] Start: 12-08-2017 End: 12-09-2017 Patient encounter procedure HA RAYMOND Facility:[facility] Start: 12-02-2017 End: 12-03-2017 Patient encounter procedure DEFAULT PHYSICIAN Facility:[facility] Procedures Date Procedure Procedure Detail Performing Clinician Start: 08-24-2021 Ct lumbar spine w/contrast material Vin Humphrey MD Work Phone: Start: 08-24-2021 Myelography via lumbar inject rs&i lumbosacral Vin Humphrey MD Work Phone: Start: 08-24-2021 GENERAL PROCEDURE Obdulio Dooley RA Start: 06-26-2021 Radex spine lumbosacral minimum 4 views Faith Davis PA-C Work Phone: Start: 09-23-2018 Basic metabolic panel calcium total Delon Gutierrez Work Phone: Start: 09-23-2018 CBC, EDIF, PLATELET Delon Gutierrez Work Phone: Start: 09-23-2018 Choriogonadotropin ( test) [Presence] in Serum or Plasma Delon Gutierrez Work Phone: Start: 07-02-2018 CT of abdomen and pelvis Kalen Oseguera Work Phone: Start: 07-02-2018 Assay of lipase Kalen Oseguera Work Phone: Start: 07-02-2018 Assay of troponin quantitative Kalen johnson Work Phone: Start: 07-02-2018 CBC, EDIF, PLATELET Kalen Oseguera Work Phone: Start: 07-02-2018 Comprehensive metabolic panel Kalen Saldaña llins Work Phone: Start: 07-02-2018 Fibrin dgradj products d-dimer quantitative Kalen Oseguera Work Phone: Start: 02-06-2018 ANESTH KNEE JOINT SURGERY VIJAY VEGA Start: 02-06-2018 KNEE ARTHROSCOPY/SURGERY DAYRON RAYMOND Plan of Treatment Date Care Activity Detail Author Start: 11-09-2023 Influenza vaccination INFLUENZA VACC INE (#1) [facility] Start: 11-08-2022 COVID-19 VACCINE ( season) COVID-19 VACCINE ( season) [facility] Start: 11-08-2021 Influenza vaccination INFLUENZ A VACCINE (Season Ended) [facility] Start: 09-05-2021 End: 09-05-2021 Patient encounter procedure 09/05/2021 Office Visit Multispecialty Margaret Boo MD [address] [place] [address] [facility] Start: 08-24-2021 End: 08-24-2021 Patient encounter procedure Ambulatory Surgery Unit Start: 08-08-2021 End: 08-08-2022 CT Lumbar spine WO contrast CT SPINE LUMBAR WITHOUT CONTRAST Imaging Routine Numbness and tingling of both feet Lumbar radiculopathy Expected: 08/08/2021, Expires: 08/08/2022 [facility] Comment on above: Expected: 08/08/2021 , Expires: 08/08/2022 Start: 08-08-2021 End: 08-08-2022 RF Guidance for injection of Lumbar spine XR FLUORO MYELOGRAM LUMBAR ONLY Imaging Routine Numbness and tingling of both feet Lumbar radiculopathy Expected: 08/08/2021, Expires: 08/08/2022 [facility] Comment on above: Expected: 08/08/2021 , Expires: 08/08/2022 Start: 07-25-2021 End: 07-25-2021 Patient encounter procedure 07/25/2021 Office Visit Multispecialty Margaret Boo MD [address] [place] [address] [facility] Start: 07-13-2021 End: 07-13-2021 Patient encounter procedure 07/13/2021 Appointment Magnetic Resonance Imaging Faith Davis PA-C [address] [place] [address] [facility] Start: 06-26-2021 End: 06-26-2022 MR Lumbar spine WO and W contrast IV MRI SPINE LUMBAR WITH AND WITHOUT CONTRAST Imaging Routine Lumbar radiculopathy Acute bilateral low back pain with bilateral sciatica Expected: 06/26/2021, Expires: 06/26/2022 [facility] Comment on above: Expected: 06/26/2021 , Expires: 06/26/2022 Start: 11-08-2018 Influenza vaccination [facility] Start: 2011 Screening for malignant neoplasm of cervix [facility] Start: 2009 Third diphtheria, tetanus and acellular pertussis (DTaP) vaccination TDAP (ADULT) [facility] Start: 2008 Tetanus vaccination TETANUS [facility] Start: 2005 HIV screening HIV SCREENING DISCUSSI ON [facility] Start: 2003 HIV screening HIV SCREENING DISCUSSI ON [facility] Start: 1995 COVID-19 VACCINE (#1) COVID-19 VACCI NE (#1) [facility] Start: 1995 COVID-19 VACCINE (1) COVID-19 VACCIN E (1) [facility] Start: 1990 COVID-19 VACCINE (#1) COVID-19 VACCI NE (#1) [facility] Start: 1990 Tetanus vaccination TETANUS [facility] CT of abdomen and pelvis CT ABDOMEN/PELVIS WITHOUT CONTRAST Imaging STAT 07/02/2018 5:49 PM EDT [facility] End: 07-13-2021 MR Lumbar spine WO and W contrast IV [facility] Comment on above: 1 Occurrences starti ng 07/13/2021 until 07/13/2021 End: 07-02-2018 Standard ECG ECG ECG STAT One Time for 1 Occurrences starting 07/02/2018 until 07/02/2018 [employer] Comment on above: One Time for 1 Occur rences starting 07/02/2018 until 07/02/2018 End: 09-23-2018 Standard ECG ECG ECG STAT One Time for 1 Occurrences starting 09/23/2018 until 09/23/2018 [employer] Comment on above: One Time for 1 Occur rences starting 09/23/2018 until 09/23/2018 Immunizations Immunization Date Immunization Notes Care Provider Vivi morse 02-25-2020 influenza virus vaccine, unspecified formulation Faith Davis PA-C Work Phone: [facility] 01-20-2017 influenza virus vaccine, unspecified formulation Delon Gutierrez [facility] Payers Date Payer Category Payer Unknown [id number] 2022 Unknown [id number] 2021 Unknown [id number] 2021 Unknown 2021 Unknown [id number] 2018 Private Health Insurance [employer] A ETNA GENERIC xxxxxxxxxx 2018-Present xxxxxxxxxx [id number] 2014 Unknown [id number] 2006 Private Health Insurance [id number] 1990 Unknown [id number]. 2.647 1990 Unknown [id number] [id number]. 2.647 1990 Unknown [id number] [id number]. 2.647 1990 Unknown [id number] [id number]. 2.647 1990 Unknown [id number] [id number]. 2.647 1990 Unknown [id number] 2.16.840.1.998516.3.579. 2.647 1990 Unknown [id number] 2.16.840.1.878926.3.579. 2.419 1990 Unknown [id number] 2.16.840.1.622667.3.579. 2.593 1990 Unknown [id number] 2.16.840.1.382663.3.579. 2.593 1990 Unknown [id number] [id number]. 2.593 1990 Unknown [id number]. 2.593 1990 Unknown [id number] 2.16.840.1.894900.3.579. 2.594 1990 Unknown [id number] 2.16.840.1.231784.3.579. 2.594 1990 Unknown [id number] 2.16.840.1.047675.3.579. 2.594 1990 Unknown [id number] 2.16.840.1.112973.3.579. 2.594 1990 Unknown [id number] 2.16.840.1.743565.3.579. 2.594 1990 Unknown [id number] 2.16.840.1.907093.3.579. 2.594 1990 Unknown [id number] 2.16.840.1.569061.3.579. 2.594 1990 Unknown [id number] 2.16.840.1.438044.3.579. 2.173 1990 Unknown [id number] 2.16.840.1.715654.3.579. 2.983 1990 Unknown [id number] 2.16.840.1.674952.3.579. 2.983 1990 Unknown [id number] 2.16.840.1.843762.3.579. 2.983 1959 Private Health Insurance [id number] 1959 Self-pay [id number] 1959 Unknown [id number] 1959 Worker's Compensation [id number] Social History Date Type Detail Facility Start: 07-02-2018 End: 10-10-2018 Tobacco smoking status [facility] Never smoker [facility] Start: 07-02-2018 Alcohol Comment socially [facility] Start: 1990 Sex Assigned At Not on file [facility] Start: 07-02-2018 Tobacco use and exposure Smokeless tobacco non-user [facility] Start: 06-26-2021 End: 10-30-2023 Alcohol intake Current drinker of alcohol (finding) [facility] Start: 06-08-2021 End: 06-18-2021 Exposure to SARS-CoV-2 (event) Not sure [facility] Start: 06-26-2020 End: 09-05-2021 History of Social function [facility] Start: 06-26-2020 End: 09-05-2021 Tobacco use panel [facility] Adolescent depressio n screening assessment 2 [facility] Start: 05-17-2019 Gender identity Identifies as male gender (finding) [facility] Medical Equipment Procedure Code Equipment Code Equipment Origin al Text Equipment Identifier Dates fluorescein ophthalmic strip 0.6 mg [id number] Start: 10-10-2018 End: 10-10-2018 Clinical Notes 06-26-2021 to 10-30-2023 Radha Parikh RN - 10/30/2023 10:30 AM EDJose Luis Parikh RN - 10/30/2023 10:30 AM EDMira Tinsley DO - 10/30/2023 9:43 AM EDTDischarge InstructionsAttachmentsDischarge Instructions Note Date & Type Note Facility 10-30-[address] [facility] Discharge instructions regviewed in detail, verbally voices understanding. N/c voiced, aware to call PCP for follow-up. And take AM BP med. [facility] 10-30-[address] [facility]. Discharge instructions regviewed in detail, verbally voices understanding. N/c voiced, aware to call PCP for follow-up. And take AM BP med. Emergency Department Report [facility] Service Date:.10/30/23 PCP: Fatemeh Jose Slime Chief Complaint: Chief Complaint Patient presents with Dysphagia Patient reports vomiting approximately 0615 AM with swollen uvula, voice change, and dysphagia since. Patient denies difficulty breathing and changes to medications. HPI Mamadou Berry is a 33 y.o. adult presents to the ED today due to uvula swelling. Awoke today with uvula swelling. Gagging to the point of had a vomiting episode but no actual nausea or vomiting otherwise. Some nasal congestion runny nose over the last couple of days. No fevers no chills. No difficulty with breathing or stridor. Review of Systems: Review of Systems Constitutional: Negative for chills and fever. HENT: Positive for sore throat. Negative for congestion and trouble swallowing. Eyes: Negative for discharge and visual disturbance. Respiratory: Negative for cough and shortness of breath. Cardiovascular: Negative for chest pain and leg swelling. Gastrointestinal: Negative for abdominal pain and nausea. Genitourinary: Negative for difficulty urinating and urgency. Musculoskeletal: Negative for back pain. Skin: Negative for rash. Neurological: Negative for speech difficulty and weakness. All other systems reviewed and are negative. Past Medical History: Past Medical History: Diagnosis Date Essential hypertension, benign Lumbar herniated disc Migraine Obesity Past Surgical History: Past Surgical History: Procedure Laterality Date DECOMPRESSION LAMINOTOMY W/ EXCISION INTERVERTEBRAL DISC LUMBAR OPEN E Left 04/29/2019 Laterality: Left; Surgeon: Margaret Boo MD; [facility] DISCECTOMY POSTERIOR LUMBAR Left 03/30/2019 Laterality: Left; Surgeon: Margaret Boo MD; Location: [facility] MAIN OR KNEE SURGERY Right x5 Allergies: Allergies Allergen Reactions Pineapple Lamictal [Lamotrigine] Rash Medications: Patient's Medications New Prescriptions No medications on file Previous Medications CYCLOBENZAPRINE 10 MG TAB TABLET Take 10 mg by mouth 3 times daily as needed for Muscle spasms. DULOXETINE [address] PARTICLES [address]SULE DR Take 1 capsule by mouth daily. Take 30mg by mouth daily x1 week, then 60mg by mouth daily. GUAIFENESIN-CODEINE (CHERATUSSIN AC) 100-10 MG/5ML SYRUP SYRUP Take 10 mL by mouth every 6 hours as needed for Cough for up to 5 days. OLMESARTAN 40 MG TABLET Take 40 mg by mouth daily. OMEPRAZOLE [address] CAPSULE Take 1 capsule by mouth daily for 14 doses. PHENTERMINE HCL (ADIPEX-P) 37.5 MG CAPSULE Take by mouth. PREGABALIN 50 MG CAPSULE Take 1 capsule by mouth 2 times daily. PROPRANOLOL 120 MG CAP SR 24HR Take 120 mg by mouth 2 times daily. TESTOSTERONE CYPIONATE 200 MG/ML SOLUTION INJECTION Inject 1 mL intramuscularly Every other week. Modified Medications No medications on file Discontinued Medications No medications on file Family History: History reviewed. No pertinent family history. Social History: Social History Socioeconomic History Marital status: Spouse name: Not on file Number of children: Not on file Years of education: Not on file Highest education level: Not on file Occupational History Not on file Tobacco Use Smoking status: Never Smokeless tobacco: Never Substance and Sexual Activity Alcohol use: Yes Comment: socially Drug use: Never Sexual activity: Yes Other Topics Concern Not on file Social History Narrative Not on file Social Determinants of Health Financial Resource Strain: Not on file Food Insecurity: Not on file Transportation Needs: Not on file Physical Activity: Not on file Stress: Not on file Social Connections: Not on file Intimate Partner Violence: Not on file Housing Stability: Not on file Physical Exam: Physical Exam Vitals and nursing note reviewed. Constitutional: General: He is not in acute distress. Appearance: He is well-developed. He is not toxic-appearing. HENT: Head: Normocephalic and atraumatic. Nose: Nose normal. Mouth/Throat: Mouth: Mucous membranes are moist. Pharynx: Oropharynx is clear. Uvula midline. Uvula swelling and postnasal drip present. No posterior oropharyngeal erythema. Eyes: Extraocular Movements: Extraocular movements intact. Conjunctiva/sclera: Conjunctivae normal. Pupils: Pupils are equal, round, and reactive to light. Neck: Trachea: Trachea and phonation normal. Cardiovascular: Rate and Rhythm: Normal rate and regular rhythm. Pulses: Normal pulses. Heart sounds: Normal heart sounds. Pulmonary: Effort: Pulmonary effort is normal. Breath sounds: Normal breath sounds. Abdominal: General: Bowel sounds are normal. Palpations: Abdomen is soft. Tenderness: There is no abdominal tenderness. There is no guarding. Musculoskeletal: General: Normal range of motion. Cervical back: Normal range of motion and neck supple. Skin: General: Skin is warm and dry. Capillary Refill: Capillary refill takes less than 2 seconds. Findings: No erythema or rash. Neurological: General: No focal deficit present. Mental Status: He is alert and oriented to person, place, and time. Cranial Nerves: No cranial nerve deficit. Deep Tendon Reflexes: Reflexes normal. Psychiatric: Behavior: Behavior normal. Thought Content: Thought content normal. Vital Signs During ED Visit Patient Vitals for the past 24 hrs: BP Temp Temp src Pulse Resp SpO2 10/30/23 1003 (!) 168/91 -- -- 85 14 98 % 10/30/23 0944 (!) 188/95 98.2 F (36.8 C) Oral 89 16 97 % Orders/Results: Orders Placed This Encounter dexAMETHasone (DECADRON) injection 10 mg Radiographic Imaging No orders to display Procedures: Procedures Moderate Sedation Procedure: No Medications Ordered/Given During ED Visit Medications dexAMETHasone (DECADRON) injection 10 mg (10 mg Oral Given 10/30/23 0959) Medical Decision Making Mild inflammation with the uvulitis. No toxicity noted. Decadron was given. Discharged home. Continue with Tylenol Motrin as needed. Any other symptoms or concerns return. Clinical Impression: 1. Uvulitis No follow-ups on file. New Prescriptions No medications on file Discontinued Medications No medications on file An After Visit Summary was printed and given to the patient with above information. Dayron Tinsley DO 10/30/23 1029 documented in this encounter [facility] 10-30-2023 Hospital Discharg e instructions Dayron Tinsley DO - 10/30/2023 10:02 AM EDT Thank you for allowing us to be involved in your care today. Please follow up as discussed during your stay. This information is included in your discharge paperwork. Appropriate follow up is essential in your continued care after today's visit. If you had any diagnostic studies (Labs, X-rays, CT-scan , Ultrasound or Cultures) have your Primary Care Physician (PCP) review them with you since there may be results that require further follow up or investigation. Return to the Emergency Department at any point with worsening conditions or concerns. The physician and staff of the Emergency Department would like to thank you for choosing our facility for your health care needs. Our goal is to provide exceptional service. You may be receiving a survey in the mail following your visit. Because your feedback is very important to us, we hope you will take the time to complete and return the survey. If for any reason, you feel that you cannot rate us Very Good or 5 for the service you received today, please let us know prior to your discharge. Please follow up with your family doctor or one of your choosing. You may find a provider through the [facility] Referral Service by calling [phone] or by visiting [email or web address] Thank You for choosing the [facility] Emergency Department! The following attachments cannot be sent through Care Everywhere.Uvulitis (Malawian)documented in this encounter [facility] 10-30-2023 Physician Emergency department Note Emergency Department Report [facility] Service Date:.10/30/23 PCP: Fatemeh Palencia Chief Complaint: Chief Complaint Patient presents with Dysphagia Patient reports vomiting approximately 0615 AM with swollen uvula, voice change, and dysphagia since. Patient denies difficulty breathing and changes to medications. HPI Mamadou Berry is a 33 y.o. adult presents to the ED today due to uvula swelling. Awoke today with uvula swelling. Gagging to the point of had a vomiting episode but no actual nausea or vomiting otherwise. Some nasal congestion runny nose over the last couple of days. No fevers no chills. No difficulty with breathing or stridor. Review of Systems: Review of Systems Constitutional: Negative for chills and fever. HENT: Positive for sore throat. Negative for congestion and trouble swallowing. Eyes: Negative for discharge and visual disturbance. Respiratory: Negative for cough and shortness of breath. Cardiovascular: Negative for chest pain and leg swelling. Gastrointestinal: Negative for abdominal pain and nausea. Genitourinary: Negative for difficulty urinating and urgency. Musculoskeletal: Negative for back pain. Skin: Negative for rash. Neurological: Negative for speech difficulty and weakness. All other systems reviewed and are negative. Past Medical History: Past Medical History: Diagnosis Date Essential hypertension, benign Lumbar herniated disc Migraine Obesity Past Surgical History: Past Surgical History: Procedure Laterality Date DECOMPRESSION LAMINOTOMY W/ EXCISION INTERVERTEBRAL DISC LUMBAR OPEN E Left 04/29/2019 Laterality: Left; Surgeon: Margaret Boo MD; Location: [facility] MAIN OR DISCECTOMY POSTERIOR LUMBAR Left 03/30/2019 Laterality: Left; Surgeon: Margaret Boo MD; Location: [facility] MAIN OR KNEE SURGERY Right x5 Allergies: Allergies Allergen Reactions Pineapple Lamictal [Lamotrigine] Rash Medications: Patient's Medications New Prescriptions No medications on file Previous Medications CYCLOBENZAPRINE 10 MG TAB TABLET Take 10 mg by mouth 3 times daily as needed for Muscle spasms. DULOXETINE [address] PARTIC[address]SULE DR Take 1 capsule by mouth daily. Take 30mg by mouth daily x1 week, then 60mg by mouth daily. GUAIFENESIN-CODEINE (CHERATUSSIN AC) 100-10 MG/5ML SYRUP SYRUP Take 10 mL by mouth every 6 hours as needed for Cough for up to 5 days. OLMESARTAN 40 MG TABLET Take 40 mg by mouth daily. OMEPRAZOLE [address] CAPSULE Take 1 capsule by mouth daily for 14 doses. PHENTERMINE HCL (ADIPEX-P) 37.5 MG CAPSULE Take by mouth. PREGABALIN 50 MG CAPSULE Take 1 capsule by mouth 2 times daily. PROPRANOLOL 120 MG CAP SR 24HR Take 120 mg by mouth 2 times daily. TESTOSTERONE CYPIONATE 200 MG/ML SOLUTION INJECTION Inject 1 mL intramuscularly Every other week. Modified Medications No medications on file Discontinued Medications No medications on file Family History: History reviewed. No pertinent family history. Social History: Social History Socioeconomic History Marital status: Spouse name: Not on file Number of children: Not on file Years of education: Not on file Highest education level: Not on file Occupational History Not on file Tobacco Use Smoking status: Never Smokeless tobacco: Never Substance and Sexual Activity Alcohol use: Yes Comment: socially Drug use: Never Sexual activity: Yes Other Topics Concern Not on file Social History Narrative Not on file Social Determinants of Health Financial Resource Strain: Not on file Food Insecurity: Not on file Transportation Needs: Not on file Physical Activity: Not on file Stress: Not on file Social Connections: Not on file Intimate Partner Violence: Not on file Housing Stability: Not on file Physical Exam: Physical Exam Vitals and nursing note reviewed. Constitutional: General: He is not in acute distress. Appearance: He is well-developed. He is not toxic-appearing. HENT: Head: Normocephalic and atraumatic. Nose: Nose normal. Mouth/Throat: Mouth: Mucous membranes are moist. Pharynx: Oropharynx is clear. Uvula midline. Uvula swelling and postnasal drip present. No posterior oropharyngeal erythema. Eyes: Extraocular Movements: Extraocular movements intact. Conjunctiva/sclera: Conjunctivae normal. Pupils: Pupils are equal, round, and reactive to light. Neck: Trachea: Trachea and phonation normal. Cardiovascular: Rate and Rhythm: Normal rate and regular rhythm. Pulses: Normal pulses. Heart sounds: Normal heart sounds. Pulmonary: Effort: Pulmonary effort is normal. Breath sounds: Normal breath sounds. Abdominal: General: Bowel sounds are normal. Palpations: Abdomen is soft. Tenderness: There is no abdominal tenderness. There is no guarding. Musculoskeletal: General: Normal range of motion. Cervical back: Normal range of motion and neck supple. Skin: General: Skin is warm and dry. Capillary Refill: Capillary refill takes less than 2 seconds. Findings: No erythema or rash. Neurological: General: No focal deficit present. Mental Status: He is alert and oriented to person, place, and time. Cranial Nerves: No cranial nerve deficit. Deep Tendon Reflexes: Reflexes normal. Psychiatric: Behavior: Behavior normal. Thought Content: Thought content normal. Vital Signs During ED Visit Patient Vitals for the past 24 hrs: BP Temp Temp src Pulse Resp SpO2 10/30/23 1003 (!) 168/91 -- -- 85 14 98 % 10/30/23 0944 (!) 188/95 98.2 F (36.8 C) Oral 89 16 97 % Orders/Results: Orders Placed This Encounter dexAMETHasone (DECADRON) injection 10 mg Radiographic Imaging No orders to display Procedures: Procedures Moderate Sedation Procedure: No Medications Ordered/Given During ED Visit Medications dexAMETHasone (DECADRON) injection 10 mg (10 mg Oral Given 10/30/23 0959) Medical Decision Making Mild inflammation with the uvulitis. No toxicity noted. Decadron was given. Discharged home. Continue with Tylenol Motrin as needed. Any other symptoms or concerns return. Clinical Impression: 1. Uvulitis No follow-ups on file. New Prescriptions No medications on file Discontinued Medications No medications on file An After Visit Summary was printed and given to the patient with above information. Dayron Tinsley DO 10/30/23 1029 [facility] 09-05-2021 History of Presen t illness Narrative Chief Complaint Patient presents with Follow up Visit HPI: Toni returns. He is now s/p L4-5 microdiskectomy on the left done 04/29/2019. He states that he is insensate in bilateral feet and bilateral anterior shins, patchy elsewhere. He also reports left leg pain. Denies bowel or bladder incontinence. He reports improved pain with tumeric and CBD gummies. Would like to hold off on an injection right now. Past medical history:I have reviewed and confirmed the past medical history in the chart. Medications: reviewed medication list in the chart Allergies: reviewed allergy section in the chart Review of Systems: Negative for chest pain and shortness of breath Review of all other systems is negative EXAM: Pulse 81, temperature 97.1 F (36.2 C), height 1.753 m (5' 9 ), weight 131.5 kg (290 lb), SpO2 97 %. This is a well developed/well nourished 31 y.o.. y/o adult, who does appear their stated age and was cooperative today in the office. Is alert, oriented x 3. There were no gait deficits observed. RLE: 5/5 IP/H/Q/DF/PF/EHL LLE: 5/5 IP/H/Q/DF/PF/EHL Sensation intact to light touch except for bilateral feet. 2+ reflexes in BUE (biceps, triceps, brachioradialis) 2+ reflexes in BLE (patella, achilles) Negative Burns's BUE No clonus Babinski downgoing Seated SLR negative Toes/fingers warm, well perfused. MRI: Status post laminectomy and discectomy at L4-5. At this level, there is a T2-hypointense ventral epidural abnormality in the left subarticular and foraminal zones, effacing the left lateral recess. There is patchy enhancement and intermixed areas of nonenhancement in this location. Overall size of this abnormality is decreased from the preoperative MRI. Most of this finding probably represents postoperative changes rather than recurrent disc herniation. Central spinal canal stenosis is now mild, substantially decreased in magnitude from the prior study. Moderate canal stenosis at L3-4 and L5-S1. Neural foraminal narrowing at multiple levels, including moderate bilateral L4 and right L5 neural foraminal Narrowing. CT myelogram with no significant stenosis. Assessment/Plan: Bilateral feet numbness with no structural cause on imaging. Will refer to neurology for neuropathy workup. If pain returns, will refer for TFESI. Follow up as needed. Rudy Wilcox MD PGY-3, Orthopaedic Surgery Orthopaedic Surgery Attending (Spine) I have personally seen and examined Mamadou eBrry and reviewed the relevant images. Following my extensive edits, I agree with the clinical history, physical examination, and management plan detailed in the above note. I have personally discussed the diagnosis and management with the patient and family. The total [id number] time spent on this visit was greater than 30 minutes, with the majority (>50%) of the time spent in counseling, discussing pathology and management options, and coordination of care. Margaret Boo MD documented in this encounter [facility] 08-24-2021 History of Presen t illness Narrative Patient has met outpatient Interventional Radiology post procedure and post sedation discharge criteria. RN discussed After Visit Summary with patient and family member. Answered all pt questions. Phone numbers given, voices understanding of materials. Myleogram dressing clean, dry, and intact, no swelling or shadowing noted. Returned to baseline ambulatory state. All patient belongings gathered prior to discharge home. Pt taken by wheelchair to waiting car for discharge home per MD order. documented in this encounter [facility] 08-24-2021 Hospital Discharg e instructions Lizz Bean RN - 08/24/2021 3:40 PM EDT Myelogram A myelogram is a special x-ray test used to view the space around your spinal cord. It is done to check for problems affecting the spinal cord and nerves. Care After the Myelogram Have an adult with you to take you home after the test. For your safety, you may not drive yourself home, go home alone or use public transportation without someone to go with you. If you have diabetes, and take Metformin (Glucophage, Fortamet, Glucophage XR, Glumetza, Riomet), or any medicine with metformin in it: Restart the medicine on the third day or 48 hours after the test, unless you have been told differently by your doctor. Test results will be sent to your doctor, who will share the results with you. When you go home, you need to sit in bed with your head up for 6 to 8 hours. Drink 8 to 10 glasses of liquids, especially water and caffeinated beverages, over the next 24 hours to replace the fluid removed during the test. This will also reduce the chance of a headache and remove the contrast medicine from your body If you have a headache, take a non-prescription pain reliever such as acetaminophen (Tylenol) or ibuprofen (Advil, Motrin). Follow the directions on the product s label for use. Have a family member or friend stay with you the day of the procedure. Rest and limit your activity until the next day. Do not drive, operate heavy machinery or make important decisions until the next day. When to Call Your Doctor Although problems from this test are rare, they can occur. Call your doctor right away if you have any of these signs: ? Severe headache ? Have numbness, loss of feeling or problems with movement in arms or legs ? Feel confused or less alert ? Swelling, warmth or redness at the needle injection site ? Bleeding that will not stop at the injection site ? Drainage of a clear fluid at the injection site ? Seizure or convulsions ? Weakness ? Vomiting that will not stop If your doctor is not available and you are having problems, call 911 or go to the nearest emergency room. Interventional Radiology Contact Information If you have questions or concerns, please call Interventional Radiology at documented in this encounter [facility] 08-24-2021 History of Presen t illness Narrative Patient Information: Inpatient/Outpatient:Outpatient Weight: 290lb Code Status: Full Code IV: No Graphic Design Specialist: Klarissa Santiago Radiology waiting area CT orders are placed:Yes Procedure Information: Exam: Lumbar Myelogram Needle In: 13:55 Needle Out: 13:59 Contrast dose:12mL Omnipaque 180mgl/mL Attending: Dr. Heidi Raymond Fellow: n/a Resident: n/a RA: Mushtaq Dooley Patient Summary: Pre Pain: 0 Post Pain: 0 Are Pre/Post vitals in system:Yes Things To Do: Discharge order placed:Yes Report Handoff: Patient To CT Hand off to CT @: Yes Patient to RPR Following CT documented in this encounter [facility] 08-08-2021 History of Presen t illness Narrative Chief Complaint Patient presents with Follow up Visit HPI: Toni returns. He is now s/p L4-5 microdiskectomy on the left done 04/29/2019. He states that he is insensate in bilateral feet and bilateral anterior shins, patchy elsewhere. Denies numbness but feels wobbly. Episodes of urinary incontinence but no difficulty voiding. No stool incontinence. No saddle anesthesia. Past medical history:I have reviewed and confirmed the past medical history in the chart. Medications: reviewed medication list in the chart Allergies: reviewed allergy section in the chart Review of Systems: Negative for chest pain and shortness of breath Review of all other systems is negative EXAM: Pulse 107, temperature 97 F (36.1 C), height 1.753 m (5' 9 ), weight 131.5 kg (290 lb), SpO2 97 %. This is a well developed/well nourished 31 y.o.. y/o adult, who does appear their stated age and was cooperative today in the office. Is alert, oriented x 3. There were no gait deficits observed. RUE: 07/12 D/B/T/Wrst ext/Wrst flx/FF/FE/HI LUE: 5/5 D/B/T/Wrt ext/Wrst flx/FF/FE/HI RLE: 07/12 IP/H/Q/DF/PF/EHL LLE: 07/12 IP/H/Q/DF/PF/EHL Sensation intact to light touch and pinprick: BUE: C5-T1 BLE: L1-S1 2+ reflexes in BUE (biceps, triceps, brachioradialis) 2+ reflexes in BLE (patella, achilles) Negative Burns's BUE No clonus Babinski downgoing Seated SLR negative Toes/fingers warm, well perfused. MRI: Status post laminectomy and discectomy at L4-5. At this level, there is a T2-hypointense ventral epidural abnormality in the left subarticular and foraminal zones, effacing the left lateral recess. There is patchy enhancement and intermixed areas of nonenhancement in this location. Overall size of this abnormality is decreased from the preoperative MRI. Most of this finding probably represents postoperative changes rather than recurrent disc herniation. Central spinal canal stenosis is now mild, substantially decreased in magnitude from the prior study. Moderate canal stenosis at L3-4 and L5-S1. Neural foraminal narrowing at multiple levels, including moderate bilateral L4 and right L5 neural foraminal Narrowing. Assessment/Plan: - left L4-5 foraminal steroid injection - CT myelogram - Follow up after Vin Humphrey MD Orthopaedic Surgery, PGY-4 Orthopaedic Surgery Attending (Spine) I have personally seen and examined Mamadou Berry and reviewed the relevant images. Following my extensive edits, I agree with the clinical history, physical examination, and management plan detailed in the above note. I have personally discussed the diagnosis and management with the patient and family. The total [id number]-[id number] time spent on this visit was greater than 30 minutes, with the majority (>50%) of the time spent in counseling, discussing pathology and management options, and coordination of care. Margaret Boo MD documented in this encounter [facility] 06-26-2021 History of Presen t illness Narrative Chief Complaint Patient presents with Back and LLE pain HPI: Toni returns. He is s/p Left-sided posterior lumbar hemilaminotomy with decompression and microdiskectomy 03/30/2019 and 04/29/2019. He arrives alone. He notes no new injury. He notes central axial back pain that radiates L>R into the buttock, posterior and lateral thigh. States symptoms 6-8 months. He is taking tylenol ES. He was in therapy about a year ago and does a daily HEP. Says sometimes he feels like his legs go to sleep. 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 He is ambulatory without the use of an assistive-device. Notes history of right knee injuries. He has not had an episode of urinary/bowel incontinence. He denies any fevers, chills or rigors. He is eager to return to work. Past medical history:I have reviewed and confirmed the past medical history in the chart. Medications: reviewed medication list in the chart Allergies: reviewed allergy section in the chart Review of Systems: Negative for chest pain and shortness of breath Review of all other systems is negative EXAM: Vitals: 06/26/21 1017 Pulse: 96 Temp: 97.1 degrees F (36.2 degrees C) SpO2: 100% Weight: 122 kg (269 lb) Height: 1.753 m (5' 9 ) gait WNL incision CDI no TTP RUE: 07/12 D/B/T/Wrst ext/Wrst flx/FF/FE/HI LUE: 07/12 D/B/T/Wrt ext/Wrst flx/FF/FE/HI RLE: 07/12 IP/H/Q/DF/PF/EHL LLE: 07/12 IP/H/Q/DF/PF 4-/5EHL Sensation intact to light touch and pinprick: BUE: C5-T1 BLE: L1-S1 2+ reflexes in BUE (biceps, triceps, brachioradialis) 2+ reflexes in BLE (patella, achilles) Negative Burns's BUE No clonus Babinski downgoing Seated SLR negative Toes/fingers warm, well perfused. difficulty with heel and toe raise LLE IMAGING: Xrays today: There are 5 lumbar vertebral bodies identified. No compression deformities. There is disc disease at L4-5 and L5-S1. Facets are aligned. No spondylolisthesis or spondylolysis. No spinal instability with flexion or extension Assessment/Plan: -Rx for PT -Trial lyrica as had whole body rash with gabapentin -continue tylenol PRN -lumbar MRI given weakness LLE in face of daily HEP, oral meds and activity modification x 6 weeks Patient will follow up via telemed after MRI documented in this encounter [facility] Evaluation note Diagnosis Low back pain, unspecified back pain laterality, unspecified chronicity, unspecified whether sciatica present- Primary Lumbar radiculopathy Thoracic or lumbosacral neuritis or radiculitis, unspecified Acute bilateral low back pain with bilateral sciatica S/P lumbar microdiscectomy Other postprocedural status Low back pain, unspecified back pain laterality, unspecified chronicity, unspecified whether sciatica present [facility] Diagnosis Low back pain, unspecified back pain laterality, unspecified chronicity, unspecified whether sciatica present [facility] Lumbar radiculopathy Thoracic or lumbosacral neuritis or radiculitis, unspecified Acute bilateral low back pain with bilateral sciatica [facility] Diagnosis Numbness and tingling of both feet- Primary Lumbar radiculopathy Thoracic or lumbosacral neuritis or radiculitis, unspecified [facility] Diagnosis Numbness and tingling of both feet Lumbar radiculopathy Thoracic or lumbosacral neuritis or radiculitis, unspecified [facility] Diagnosis Numbness and tingling of both feet Lumbar radiculopathy Thoracic or lumbosacral neuritis or radiculitis, unspecified [facility] Diagnosis Numbness and tingling of both feet- Primary [facility] Diagnosis Uvulitis- Primary Cellulitis and abscess of oral soft tissues [facility] Consultation (Routine) - New Request Specialty Diagnoses / Procedures Referred By Osito galicia Referred To Contact Neurology Diagnoses Numbness and tingling of both feet Margaret Boo MD [address] [place] [address] Referral ID Status Reason Start Date Expiration Date V isits Requested Visits Authorized [id number] New Request 09/05/2021 09/30/2022 1 1 [facility] Summary Purpose Family History No Family History Records FoundNo Family History Records FoundNo Family History Records FoundNo Family History Records FoundNo Family History Records FoundNo Family History Records FoundNo Family History Records Found Advance Directives No Advanced Directives Records FoundLatest Code Status on File Code Status Date Activated Date Inactivated Comments Full Code 04/26/2019 1:57 AM Full Code 04/16/2019 9:40 PM 04/26/2019 1:57 AM Full Code 03/30/2019 3:43 PM 04/16/2019 9:40 PM Full Code 03/27/2019 9:49 PM 03/30/2019 3:43 PM Latest Code Status on File Code Status Date Activated Date Inactivated Comments Full Code 04/26/2019 1:57 AM Full Code 04/16/2019 9:40 PM 04/26/2019 1:57 AM Full Code 03/30/2019 3:43 PM 04/16/2019 9:40 PM Full Code 03/27/2019 9:49 PM 03/30/2019 3:43 PM Date Activated Date Inactivated Comments 04/26/2019 1:57 AM Date Activated Date Inactivated Comments 04/16/2019 9:40 PM 04/26/2019 1:57 AM Date Activated Date Inactivated Comments 03/30/2019 3:43 PM 04/16/2019 9:40 PM Date Activated Date Inactivated Comments 03/27/2019 9:49 PM 03/30/2019 3:43 PM Reason for Referral Status Reason Specialty Diagnoses / Procedures Referred By Contact Referred To Contact Pending Review Procedures ECG Kalen Oseguera MD [address] [place] [address] Status Reason Specialty Diagnoses / Procedures Referred By Contact Referred To Contact New Request Procedures Delon Perez MD [address] [place] [address] Specialty Diagnoses / Procedures Referred By Contac t Referred To Contact Physical Therapy Diagnoses Low back pain, unspecified back pain laterality, unspecified chronicity, unspecified whether sciatica present Lumbar radiculopathy Acute bilateral low back pain with bilateral sciatica Faith Davis, TAWANNAC [address] [place] [address] Referral ID Status Reason Start Date Expiration Date V isits Requested Visits Authorized [id number] New Request 06/26/2021 07/21/2022 1 1 Scheduling Instructions [facility] [address] [facility], 2nd [place] [address] Fax [facility] (Neck and Back Therapy) [address] [place] [address] FAX [facility] [address] [address] FAX [facility] [place] [address] [phone] FAX [facility] [address] [place] [address] FAX Physical Therapy at [address] [address] FAX [facility] [address] [address] FAX [facility] [address] [place], [place] [address] FAX Specialty Diagnoses / Procedures Referred By Contac t Referred To Contact Diagnoses Lumbar radiculopathy Acute bilateral low back pain with bilateral sciatica Procedures MRI SPINE LUMBAR WITH AND WITHOUT CONTRAST ID MRI, LUMBAR SPINE LENO Faith Davis PA-C [address] [place] [address] Referral ID Status Reason Start Date Expiration Date V isits Requested Visits Authorized [id number] New Request 06/26/2021 07/21/2022 1 1 Referral ID Status Reason Start Date Expiration Date V isits Requested Visits Authorized [id number] Pending Review 06/26/2021 07/21/2022 1 1 Specialty Diagnoses / Procedures Referred By Contac t Referred To Contact Diagnoses Numbness and tingling of both feet Lumbar radiculopathy Procedures XR FLUORO MYELOGRAM LUMBAR ONLY Margaret Boo MD [address] [place] [address] Referral ID Status Reason Start Date Expiration Date V isits Requested Visits Authorized [id number] New Request 08/08/2021 09/02/2022 1 1 Specialty Diagnoses / Procedures Referred By Contac t Referred To Contact Diagnoses Numbness and tingling of both feet Lumbar radiculopathy Procedures CT SPINE LUMBAR WITHOUT CONTRAST ID CT SCAN,LUMBAR SPINE,W/O CONTRAST Margaret Boo MD [address] [place] [address] Referral ID Status Reason Start Date Expiration Date V isits Requested Visits Authorized [id number] Pending Review 08/08/2021 09/02/2022 1 1 Specialty Diagnoses / Procedures Referred By Contac t Referred To Contact Diagnoses Numbness and tingling of both feet Lumbar radiculopathy Procedures CT SPINE LUMBAR WITH CONTRAST CT SPINE LUMBAR WITHOUT CONTRAST ID CT SCAN,LUMBAR SPINE,W/O CONTRAST ID CT SCAN LUMBAR SP CONTRAST Vin Humphrey MD [address] [place] [address] Referral ID Status Reason Start Date Expiration Date Visits Re quested Visits Authorized [id number] Closed 08/08/2021 09/02/2022 1 Referral ID Status Reason Start Date Expiration Date V isits Requested Visits Authorized [id number] Pending Review 08/08/2021 09/02/2022 1 1 Discharge Instructions * Attachments The following attachments cannot be sent through Care Everywhere. * Abdominal Pain, Adult (Malawian) documented in this encounter* Instructions* Dayron Tinsley, - 09/22/2018 Thank you for allowing us to be involved in your care today. Please follow up as discussed during your stay. This information is included in your discharge paperwork. Appropriate follow up is essential in your continued care after today's visit. If you had any diagnostic studies (Labs, X-rays, CT-scan , Ultrasound or Cultures) have your Primary Care Physician (PCP) review them with you since there may be results that require further follow up or investigation. Return to the Emergency Department at any point with worsening conditions or concerns. The physician and staff of the Emergency Department would like to thank you for choosing our facility for your health care needs. Our goal is to provide exceptional service. You may be receiving a survey in the mail following your visit. Because your feedback is very important to us, we hope you will take the time to complete and return the survey. If for any reason, you feel that you cannot rateus Very Good or 5 for the service you received today, please let us know prior to your discharge. Please follow up with your family doctor or one of your choosing. You may find a provider through the [facility] Referral Service by calling [phone] or by visiting [email or web address] Thank You for choosing the [facility] Emergency Department! * Attachments The following attachments cannot be sent through Care Everywhere. * Tooth and Gum Pain (Malawian) documented in this encounter* Attachments The following attachments cannot be sent through Care Everywhere. * Nausea and Vomiting (Malawian) documented in this encounter* Attachments The following attachments cannot be sent through Care Everywhere. * Conjunctivitis (Malawian) documented in this encounter Assessments Diagnosis LUQ pain- Primary Abdominal pain, left upper quadrant Anxiety Anxiety state, unspecified Diagnosis Pain, dental- Primary Unspecified disorder of the teeth and supporting structures Diagnosis Non-intractable vomiting with nausea, unspecified vomiting type- Primary Diagnosis Conjunctivitis of right eye, unspecified conjunctivitis type- Primary Additional Source Comments INFORMATION SOURCE (unrecogn ized section and content) DATE CREATED AUTHOR 04/04/2018 [facility] DATE CREATED AUTHOR AUTHOR'S ORGANIZ ATION 01/19/2021 [facility] DATE CREATED AUTHOR AUTHOR'S ORGANIZ ATION 01/21/2021 [facility] DATE CREATED AUTHOR AUTHOR'S ORGANIZ ATION 03/21/2021 [facility] DATE CREATED AUTHOR AUTHOR'S ORGANIZ ATION 09/06/2021 [facility] DATE CREATED AUTHOR AUTHOR'S ORGANIZ ATION 07/05/2023 [facility] DATE CREATED AUTHOR AUTHOR'S ORGANIZ ATION 11/08/2023 [facility] Reason for Visit (unrecogniz ed section and content) Reason Comments Abdominal Pain Reason Comments Dental Pain C/O R upper tooth ac he. Pt went to dentist today, has infection in R upper tooth, prescribed amoxicillin 875mg. Has not taken anything for pain Reason Comments Vomiting C/O N/V all day toda y, pt reports not drinking much fluids yesterday, unable to keep fluids down today. Reports near syncopal episode at 1900. C/O 6/10 back of head/ neck pain. Reports light sensitivity Reason Comments Eye Pain right eye pain, redn ess x2hrs. wears contacts, has removed the right contact. no known FB or injury. Reason Comments Follow-up Back Pain Specialty Diagnoses / Procedures Referred By Osito galicia Referred To Contact Diagnoses Lumbar radiculopathy Acute bilateral low back pain with bilateral sciatica Procedures MRI SPINE LUMBAR WITH AND WITHOUT CONTRAST ID MRI, LUMBAR SPINE COMBO Faiht Davis, CARSON [address] [place] [address] Referral ID Status Reason Start Date Expiration Date V isits Requested Visits Authorized [id number] Pending Review 06/26/2021 07/21/2022 1 1 Reason Comments Follow-up Specialty Diagnoses / Procedures Referred By Osito galicia Referred To Contact Diagnoses Numbness and tingling of both feet Lumbar radiculopathy Procedures CT SPINE LUMBAR WITH CONTRAST CT SPINE LUMBAR WITHOUT CONTRAST ID CT SCAN,LUMBAR SPINE,W/O CONTRAST ID CT SCAN LUMBAR SP CONTRAST Vin Humphrey MD [address] [facility] [address] [place] [address] Referral ID Status Reason Start Date Expiration Date Visits Re quested Visits Authorized [id number] Closed 08/08/2021 09/02/2022 1 1 Specialty Diagnoses / Procedures Referred By Contac t Referred To Contact Diagnoses Numbness and tingling of both feet Lumbar radiculopathy Procedures XR FLUORO MYELOGRAM LUMBAR ONLY Margaret Boo MD [address] [place] [address] Referral ID Status Reason Start Date Expiration Date V isits Requested Visits Authorized [id number] Pending Review 08/08/2021 09/02/2022 1 1 Reason Comments Follow-up Reason Comments Dysphagia Patient reports vomi ting approximately 0615 AM with swollen uvula, voice change, and dysphagia since. Patient denies difficulty breathing and changes to medications. (unrecognized sect ion and content) No Status Records FoundNo Status Records Found Care Teams (unrecognized sec tion and content) Staple Side Laster Relationship Specialty Start Date End Date Fatemeh Palencia MD [address] [place] [address] PCP - General Family Medicine 07/02/18 Staple Side Laster Relationship Specialty Start Date End Date Fatemeh Palencia MD [address] [place] [address] PCP - General Family Medicine 07/02/18 Staple Side Laster Relationship Specialty Start Date End Date Fatemeh Palencia MD [address] [place] [address] PCP - General Family Medicine 07/02/18 Staple Side Laster Relationship Specialty Start Date End Date Fatemeh Palencia MD [address] [place] [address] PCP - General Family Medicine 07/02/18 Staple Side Laster Relationship Specialty Start [place] [address] [place] [phone] PCP - General Family Medicine 07/02/18 Staple Side Laster Relationship Specialty Start [place] [address] [place] [phone] PCP - General Family Medicine 07/02/18 Staple Side Laster Relationship Specialty Start [place] [address] [place] [phone] PCP - General Family Medicine 07/02/18 Staple Side Laster Relationship Specialty Start [place] [address] [place] [phone] PCP - General Family Medicine 07/02/18 Staple Side Laster Relationship Specialty Start Date End Date Fatemeh Palencia MD [address] [place] [phone] PCP - General Family Medicine 07/02/18 Scheduled Active and Recently Administ ered Medications (unrecognized section and content) Medication Order 10/28/2023 10/29/2023 10/30/2023 dexAMETHasone (DECADRON) injection 10 mg (COMPLETED) 10 mg, Oral, ONCE, 1 dose, On Ekaterina 10/30/23 at 1000 0959 (Given - Provid er: Radha Parikh RN) FOR RECORDS PERTAINING TO PATIENTS WHO ARE OR HAVE BEEN ENROLLED IN A CHEMICAL DEPENDENCY/SUBSTANCEABUSE PROGRAM, SOME INFORMATION MAY BE OMITTED. This clinical summary was aggregated from multiple sources. Caution should be exercised in using it in the provision of clinical care. This summary normalizes information from multiple sources, and as a consequence, information in this document may materially change the coding, format and clinical context of patient data. In addition, data may be omitted in some cases. CLINICAL DECISIONS SHOULD BE BASED ON THE PRIMARY CLINICAL RECORDS. [facility]. provides no warranty or guarantee of the accuracy or completeness of information in this document.
--- OUTSIDE RECORDS SUMMARY | 2023-11-28 16:57 | XMS_ITS | CCD ---
Author Organization [facility] Care Team Providers Care Acls Nurse Name Role Phone DAYRON RAYMOND Admitting Unavailable DAYRON RAYMOND Attending Unavailable FATEMEH PALENCIA Referring Unavailable FATEMEH PALENCIA Primary Care Unavailable RI Procedure Practitioner Unavailab DAYRON Lozada Surgeon Unavailable RI Procedure Practitioner Unavailab VIJAY Joiner Surgeon Unavailable [...] Care Unavailable Fatemeh Palencia Primary Care Provider [phone] FATEMEH ANTHONY DO Admitting Unavailable Alvarado REYEZ [...] Unavailable Fatemeh Palencia MD Primary Care Provider [phone] FATEMEH PALENCIA Primary Care Unavailable MARGARET BOO [...] Fatemeh Palencia MD M Primary Care Provider [phone] HOY, FATEMEH M Primary Care Unavailable DAVID [...] Propensity to adverse reactions (disorder) 5 [facility] Repository (2 sources) lamoTRIgine Drug Allergy 9 [facility] Repository (8 sources) lamoTRIgine Drug Allergy 0 [facility] (1 source) Lamotrigine Propensity to adverse reactions to drug 0 [facility] Medications Current Medications Medication Drug Class(es) Dates [...] Active Start: 04-16-2019 take 1 capsule by [facility] once daily propranolol 120 MG Cap [...] Anesthetic Start: 09-22-2018 End: 09-22-2018 lidocaine-epineph rine 1%-1:176707 injection 20 mL 2 ml famotidine 10 [...] Range Facility ESTRADIOLon 04-19-2023 ESTRADIOL 71.9 Normal [facility] Comment on above: Result Comment: Unit : pg/mL (NOTE) Adult Female Range Follicular phase 12.5 - 166.0 Ovulation phase 85.8 - 498.0 Luteal phase 43.8 - 211.0 Postmenopausal <6.0 - 54.7 1st trimester 215.0 - >4300.0 Yan ECLIA methodology [facility] Performed By: #### L ESTD ####Testing performed at [facility] [place] [address] CBCon 04-18-2023 ABSOLUTE BAS 0.1 10*3/uL Normal 0.0-0.2 [facility] Comment on above: Performed By: #### L ESTD ####Testing performed at [facility], [address] [place] [address] ABSOLUTE EOS 0.2 10*3/uL Normal 0.0-0.7 [facility] Comment on above: Performed By: #### L ESTD ####Testing performed at [facility], [address] [place] [address] ABSOLUTE NEUTROPHIL COUNT 4.6 10*3/uL Normal 1.4-6.5 [facility] Comment on above: Performed By: #### L ESTD ####Testing performed at [facility], [address] [place] [address] Basophils/100 WBC (Bld) 1.0 % Normal 0.0-2.0 [facility] Comment on above: Performed By: #### L ESTD ####Testing performed at [facility], [address] [place] [address] DTYPE AUTO DIFF Normal [facility] Comment on above: Performed By: #### L ESTD ####Testing performed at [facility], [address] [place] [address] Eosinophils/100 WBC (Bld) 2.3 % Normal 0.0-11.0 [facility] Comment on above: Performed By: #### L ESTD ####Testing performed at [facility], [address] [place] [address] Lymphocytes (Bld) [#/Vol] 2.1 10*3/uL Normal 1.2-3.4 [facility] Comment on above: Performed By: #### L ESTD ####Testing performed at [facility], [address] [place] [address] Lymphocytes/100 WBC (Bld) 28.0 % Normal 20.0-55.0 [facility] Comment on above: Performed By: #### L ESTD ####Testing performed at [facility], [address] [place] [address] Monocytes (Bld) [#/Vol] 0.5 10*3/uL Normal 0.0-0.7 [facility] Comment on above: Performed By: #### L ESTD ####Testing performed at [facility], [id number] [facility] [place] [address] Monocytes/100 WBC (Bld) 6.9 % Normal 0.0-10.0 [facility] Comment on above: Performed By: #### L ESTD ####Testing performed at [facility], [address] [place] [address] Neutrophils/100 WBC (Bld) 61.8 % Normal 37.0-75.0 [facility] Comment on above: Performed By: #### L ESTD ####Testing performed at [facility], [address] [place] [address] Erythrocyte distribution width (RBC) [Ratio] 14.7 % High 11.5-14.5 [facility] Comment on above: Performed By: #### L ESTD ####Testing performed at [facility], [id number] [facility] [place] [address] Hematocrit (Bld) [Volume fraction] 53.2 % High 36.0-48.0 [facility] Comment on above: Performed By: #### L ESTD ####Testing performed at [facility], [address] [place] [address] Hemoglobin (Bld) [Mass/Vol] 17.8 g/dL High 12.0-16.0 [facility] Comment on above: Performed By: #### L ESTD ####Testing performed at [facility], [id number] [facility] [place] [address] MCH (RBC) [Entitic mass] 31.1 pg Normal 26.0-35.0 [facility] Comment on above: Performed By: #### L ESTD ####Testing performed at [facility], [id number] [place], [place] [address]e [facility] [address] MCHC (RBC) [Mass/Vol] 33.5 g/dL Normal 27.0-37.0 [facility] Comment on above: Performed By: #### L ESTD ####Testing performed at [facility], [id number] [facility] [place] [address] MCV (RBC) [Entitic vol] 92.7 fL Normal 80.0-100.0 [facility] Comment on above: Performed By: #### L ESTD ####Testing performed at [facility], [id number] [facility] [place] [address] Platelet mean volume (Bld) [Entitic vol] 7.6 fL Normal 7.4-11.0 [facility] Comment on above: Performed By: #### L ESTD ####Testing performed at [facility], [id number] [facility] [place] [address] Platelets (Bld) [#/Vol] 301 10*3/uL Normal 130-400 [facility] Comment on above: Performed By: #### L ESTD ####Testing performed at [facility], [address] [place] [address] RBC (Bld) [#/Vol] 5.74 10*6/uL High 4.0-5.4 [facility] Comment on above: Performed By: #### L ESTD ####Testing performed at [facility], [id number] [facility] [place] [address] WBC (Bld) [#/Vol] 7.5 10*3/uL Normal 3.6-11.0 [facility] Comment on above: Performed By: #### L ESTD ####Testing performed at [facility], [id number] [facility] [place] [address] CMP FASTINGon 04-18-2023 A:G RATIO 1.6 RATIO Normal 1.3-2.2 [facility] Comment on above: Performed By: #### L ESTD ####Testing performed at [facility], [id number] [facility] [place] [address] ALBUMIN 4.7 G/dl Normal 3.5-5.0 [facility] Comment on above: Performed By: #### L ESTD ####Testing performed at [facility], [address] [place] [address] ALP [Catalytic activity/Vol] 56 U/L Normal 38-126 [facility] Comment on above: Performed By: #### L ESTD ####Testing performed at [facility], [address] [place] [address] ALT [Catalytic activity/Vol] 45 U/L High <35 [facility] Comment on above: Performed By: #### L ESTD ####Testing performed at [facility], [address] [place] [address] AST [Catalytic activity/Vol] 42 U/L High 14-36 [facility] Comment on above: Performed By: #### L ESTD ####Testing performed at [address] [place] [address] Bilirubin [Mass/Vol] 0.9 mg/dL Normal 0.2-1.3 [facility] Comment on above: Performed By: #### L ESTD ####Testing performed at [address] [place] [address] Calcium [Mass/Vol] 9.3 mg/dL Normal 8.4-10.2 [facility] Comment on above: Performed By: #### L ESTD ####Testing performed at [address] [place] [address] Chloride [Moles/Vol] 104 mmol/L Normal 98-107 [facility] Comment on above: Result Comment: Plea note: Triglyceride levels of 600mg/dL or higher may positively bias chloride results by approximately 2.1 mmol Performed By: #### L ESTD ####Testing performed at [facility], [address] [place] [address] CO2 [Moles/Vol] 25 mmol/L Normal 22-30 [facility] Comment on above: Performed By: #### L ESTD ####Testing performed at [facility], [id number] [address] [employer] [place] [address] Creatinine [Mass/Vol] 0.90 mg/dL Normal 0.7-1.2 [facility] Comment on above: Performed By: #### L ESTD ####Testing performed at [facility], [id number] [address] [employer] [address] EST. GFR, 93 ml/min/1.73sq.m [facility] Comment on above: Performed By: #### L ESTD ####Testing performed at [facility], [id number] [place] [place] [address] EST. GFR,Non 77 ml/min/1.73sq.m [facility] Comment on above: Performed By: #### L ESTD ####[facility], [id number] [facility] [place] [address] GFR Information Average GFR for 30-3 9 years old = 107. Normal [facility] Comment on above: Result Comment: Ward Aide brenton Kidney disease, GFR = <60. Kidney failure, GFR = <15. The GFR estimate is not adjusted for extreme body surface area or acute process, nor has it been validated for women or ethnic groups other than and . Performed By: #### L ESTD ####[facility], [id number] [facility] [facility] [place] [address] Glucose [Mass/Vol] 86 mg/dL Normal 70-100 [facility] Comment on above: Result Comment: NORMAL <100 mg/dL PREDIABETES 101-126 mg/dL DIABETES 126 mg/dL or higher Performed By: #### L ESTD ####[facility], [id number] [facility] [place] [address] Potassium [Moles/Vol] 4.5 mmol/L Normal 3.5-5.1 [facility] Comment on above: Performed By: #### L ESTD ####[facility], [id number] [facility] [place] [address] Protein [Mass/Vol] 7.7 g/dL Normal 6.3-8.2 [facility] Comment on above: Performed By: #### L ESTD ####Testing performed at [address] [address] Sodium [Moles/Vol] 139 mmol/L Normal 137-145 [facility] Comment on above: Performed By: #### L ESTD ####Testing performed at [address] [place] [address] Urea nitrogen [Mass/Vol] 16 mg/dL Normal 7-20 [facility] Comment on above: Performed By: #### L ESTD ####Testing performed at [address] [address] FAX REQUESTon 04-18-2023 FAX TO [phone] [facility] Comment on above: Performed By: #### L ESTD #### Testing performed at [address] [address] TESTOSTERONEon 04-18-2023 Testosterone [Mass/Vol] 338.0 ng/dL High 5.7-77.0 [facility] Comment on above: Result Comment: REFE RENCE RANGE FOR FEMALES WITH NORMAL MENSTURAL CYCLES Performed By: #### L ESTD ####Testing performed at [address] [place] [address] INSULIN, FASTINGon 3 INSULIN, FASTING 80.2 [facility] Comment on above: Result Comment: Refe rence range: 2.6 to 24.9 Unit: uIU/mL PERFORMED AT [facility] Performed By: #### L INS, LTHYR #### Testing performed at [address] [address] THYROID PANEL W/TSHon 2022 FREE THYROXINE INDEX 1.9 Normal [facility] Comment on above: Result Comment: Refe rence range: 1.2 to 4.9 PERFORMED AT [facility] Performed By: #### L INS, LTHYR #### Testing performed at [address] [place] [address] [place] [address] T3 UPTAKE 29 Normal [facility] Comment on above: Result Comment: Refe rence range: 24 to 39 Unit: % Performed By: #### L INS LTHYR #### Testing performed at [address] [place] [address] [place] [address] T4 [Mass/Vol] 6.7 ug/dL Normal [facility] Comment on above: Result Comment: Refe rence range: 4.5 to 12.0 Unit: ug/dL Performed By: #### L INS LTHYR #### Testing performed at [address] [facility] [place] [address] TSH Qn 2.770 m[IU]/L [facility] Comment on above: Result Comment: Refe rence range: 0.450 to 4.500 Unit: uIU/mL Performed By: #### L INS LTHYR #### Testing performed at [address] [place] [address] [place] [address] CBCon 11-22-2022 ABSOLUTE BAS 0.0 10*3/uL Normal 0.0-0.2 [facility] Comment on above: Performed By: #### L INS, LTHYR #### Testing performed at [address] [place] [address] [place] [address] ABSOLUTE EOS 0.2 10*3/uL Normal 0.0-0.7 [facility] Comment on above: Performed By: #### L INS, LTHYR #### Testing performed at [address] [place] [address] [place] [address] ABSOLUTE NEUTROPHIL COUNT 5.3 10*3/uL Normal 1.4-6.5 [facility] Comment on above: Performed By: #### L INS, LTHYR #### Testing performed at [address] [place] [address] Basophils/100 WBC (Bld) 0.5 % Normal 0.0-2.0 [facility] Comment on above: Performed By: #### L INS, LTHYR #### Testing performed at [address] [place] [address] [place] [address] DTYPE AUTO DIFF Normal [facility] Comment on above: Performed By: #### L INS, LTHYR #### Testing performed at [address] [place] [address] [place] [address] Eosinophils/100 WBC (Bld) 3.0 % Normal 0.0-11.0 [facility] Comment on above: Performed By: #### L INS, LTHYR #### Testing performed at [address] [place] [address] Lymphocytes (Bld) [#/Vol] 2.0 10*3/uL Normal 1.2-3.4 [facility] Comment on above: Performed By: #### L INS, LTHYR #### Testing performed at [address] [facility] [place] [address] Lymphocytes/100 WBC (Bld) 25.2 % Normal 20.0-55.0 [facility] Comment on above: Performed By: #### L INS, LTHYR #### Testing performed at [address] [facility] [place] [address] Monocytes (Bld) [#/Vol] 0.5 10*3/uL Normal 0.0-0.7 [facility] Comment on above: Performed By: #### L INS, LTHYR #### Testing performed at [address] [place] [address] [place] [address] Monocytes/100 WBC (Bld) 6.0 % Normal 0.0-10.0 [facility] Comment on above: Performed By: #### L INS, LTHYR #### Testing performed at [address] [place] [address] [place] [address] Neutrophils/100 WBC (Bld) 65.3 % Normal 37.0-75.0 [facility] Comment on above: Performed By: #### L INS, LTHYR #### Testing performed at [address] [address] Erythrocyte distribution width (RBC) [Ratio] 14.6 % High 11.5-14.5 [facility] Comment on above: Performed By: #### L INS LTHYR #### Testing performed at [address] [address] Hematocrit (Bld) [Volume fraction] 52.1 % High 36.0-48.0 [facility] Comment on above: Performed By: #### L INS LTHYR #### Testing performed at [address] [address] Hemoglobin (Bld) [Mass/Vol] 17.7 g/dL High 12.0-16.0 [facility] Comment on above: Performed By: #### L INS, LTHYR #### Testing performed at [address] [address] MCH (RBC) [Entitic mass] 31.5 pg Normal 26.0-35.0 [facility] Comment on above: Performed By: #### L INS LTHYR #### Testing performed at [address] [address] MCHC (RBC) [Mass/Vol] 34.0 g/dL Normal 27.0-37.0 [facility] Comment on above: Performed By: #### L INS LTHYR #### Testing performed at [address] [address] MCV (RBC) [Entitic vol] 92.7 fL Normal 80.0-100.0 [facility] Comment on above: Performed By: #### L INS LTHYR #### Testing performed at [address] [address] Platelet mean volume (Bld) [Entitic vol] 8.3 fL Normal 7.4-11.0 [facility] Comment on above: Performed By: #### L INS LTHYR #### Testing performed at [address] [address] Platelets (Bld) [#/Vol] 289 10*3/uL Normal 130-400 [facility] Comment on above: Performed By: #### L INS, LTHYR #### Testing performed at [address] [address] RBC (Bld) [#/Vol] 5.63 10*6/uL High 4.0-5.4 [facility] Comment on above: Performed By: #### L INS, LTHYR #### Testing performed at [address] [address] WBC (Bld) [#/Vol] 8.1 10*3/uL Normal 3.6-11.0 [facility] Comment on above: Performed By: #### L INS, LTHYR #### Testing performed at [address] [address] CMP FASTINGon 11-22-2022 A:G RATIO 1.5 RATIO Normal 1.3-2.2 [facility] Comment on above: Performed By: #### L INS, LTHYR #### Testing performed at [address] [address] ALBUMIN 4.4 G/dl Normal 3.5-5.0 [facility] Comment on above: Performed By: #### L INS, LTHYR #### Testing performed at [address] [address] ALP [Catalytic activity/Vol] 47 U/L Normal 38-126 [facility] Comment on above: Performed By: #### L INS, LTHYR #### Testing performed at [address] [address] ALT [Catalytic activity/Vol] 32 U/L Normal <35 [facility] Comment on above: Performed By: #### L INS, LTHYR #### Testing performed at [address] [place] [address] AST [Catalytic activity/Vol] 31 U/L Normal 14-36 [facility] Comment on above: Performed By: #### L INS LTHYR #### Testing performed at [address] [place] [address] [place] [address] Bilirubin [Mass/Vol] 0.5 mg/dL Normal 0.2-1.3 [facility] Comment on above: Performed By: #### L INS LTHYR #### Testing performed at [address] [place] [place] [address] [place] [address] Calcium [Mass/Vol] 9.3 mg/dL Normal 8.4-10.2 [facility] Comment on above: Performed By: #### L INS LTHYR #### Testing performed at [address] [place] [address] Chloride [Moles/Vol] 104 mmol/L Normal 98-107 [facility] Comment on above: Result Comment: Eliud reyez note: Triglyceride levels of 600mg/dL or higher may positively bias chloride results by approximately 2.1 mmol Performed By: #### L INS LTHYR #### Testing performed at [address] [address] CO2 [Moles/Vol] 28 mmol/L Normal 22-30 [facility] Comment on above: Performed By: #### L INS LTHYR #### Testing performed at [address] [address] Creatinine [Mass/Vol] 0.90 mg/dL Normal 0.7-1.2 [facility] Comment on above: Performed By: #### L INS LTHYR #### Testing performed [address] [facility] [place] [address] EST. GFR, 93 ml/min/1.73sq.m Normal [facility] Comment on above: Performed By: #### L INS LTHYR #### Testing performed [address] [address] EST. GFR,Non 77 ml/min/1.73sq.m Normal [facility] Comment on above: Performed By: #### L INS LTHYR #### Testing performed at [address] [address] GFR Information Average GFR for 30-3 9 years old = 107. Normal [facility] Comment on above: Result Comment: Ward Aide brenton Kidney disease, GFR = <60. Kidney failure, GFR = <15. The GFR estimate is not adjusted for extreme body surface area or acute process, nor has it been validated for women or ethnic groups other than and . Performed By: #### L INS LTHYR #### Testing performed at [address] [address] Glucose [Mass/Vol] 83 mg/dL Normal 70-100 [facility] Comment on above: Result Comment: NORMAL <100 mg/dL PREDIABETES 101-126 mg/dL DIABETES 126 mg/dL or higher Performed By: #### L INS, LTHYR #### Testing performed at [address] [address] Potassium [Moles/Vol] 3.9 mmol/L Normal 3.5-5.1 [facility] Comment on above: Performed By: #### L INS, LTHYR #### Testing performed at [address] [address] Protein [Mass/Vol] 7.3 g/dL Normal 6.3-8.2 [facility] Comment on above: Performed By: #### L INS, LTHYR #### Testing performed at [address] [address] Sodium [Moles/Vol] 138 mmol/L Normal 137-145 [facility] Comment on above: Performed By: #### L INS, LTHYR #### Testing performed at [address] [address] Urea nitrogen [Mass/Vol] 12 mg/dL Normal 7-20 [facility] Comment on above: Performed By: #### L INS, LTHYR #### Testing performed at [address] [place] [address] FAX REQUESTon 11-22-2022 FAX TO [phone] [facility] FAX TO [phone] [facility] Comment on above: Performed By: #### L INS, LTHYR #### Testing performed at [address] [address] HEMOGLOBIN A1Con 11-22-2022 Glucose [Mass/Vol] 105 mg/dL Normal [facility] HbA1c (Bld) [Mass fraction] 5.3 % Normal 0-6 [facility] Comment on above: Result Comment: NORMAL <5.7% PREDIABETES 5.7-6.4% DIABETES 6.5% OR HIGHER IRONon 11-22-2022 Iron [Mass/Vol] 91 ug/dL Normal 37-170 [facility] Comment on above: Performed By: #### L INS, LTHYR #### Testing performed at [address] [address] LIPID PROFILEon 11-22-2022 Cholesterol [Mass/Vol] 176 mg/dL Normal 107-217 [facility] Comment on above: Performed By: #### L INS, LTHYR #### Testing performed at [address] [address] Cholesterol in HDL [Mass/Vol] 19 mg/dL Low 33-75 [facility] Comment on above: Performed By: #### L INS, LTHYR #### Testing performed at [address] [address] Cholesterol in LDL [Mass/Vol] 55 mg/dL Normal [facility] Comment on above: Performed By: #### L INS, LTHYR #### Testing performed at [address] [place] [address] Cholesterol in VLDL [Mass/Vol] 102 mg/dL High 5.0-25 [facility] Comment on above: Performed By: #### L INS, LTHYR #### Testing performed at [address] [place] [address] Cholesterol.total/Chol esterol in HDL [Mass ratio] 9.26 {ratio} Normal [facility] Comment on above: Result Comment: RISK TOTAL/HDL RATIO MEN WOMEN 1/2 AVERAGE 3.43 3.27 AVERAGE 4.97 4.44 2X AVERAGE 9.55 7.05 3X AVERAGE 23.99 11.04 Performed By: #### L INS, LTHYR #### Testing performed at [address] [place] [address] Triglyceride [Mass/Vol] 509 mg/dL High 0-150 [facility] Comment on above: Performed By: #### L INS, LTHYR #### Testing performed at [address] [address] [address] Lumbar spine W contrast I [place] [...] findings. 3. 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 [facility] CT Lumbar spine W contrast I VOrdered By: Vin Raymond on 08-28-2021 [facility] Work Phone: CT SPINE LUMBAR WITH [...] 3. 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 Normal [facility] CT Lumbar spine W contrast I Von 08-24-2021 Radiology Study observation (narrative) [facility] GENERAL PROCEDUREon 08-25-19 Radiology Study observation (narrative) [facility] No Panel InformationOrdered By: Vin Raymond on 08-24-2021 [facility] Work Phone: RF Guidance for injection [...] I have reviewed and approved this report. [facility] Radiology Study observation (narrative) [facility] XR FLUORO MYELOGRAM LUMBAR O NLYon [...] have reviewed and approved this report. Normal [facility] MRI SPINE LUMBAR WITH AND WI THOUT [...] and right L5 neural foraminal narrowing. Normal [facility] XR SPINE LUMBOSACRAL 5 VIEWS on 06-26-2021 [...] spinal instability with flexion or extension Normal [facility] XR Spine Lumbar and Sacrum 5 Viewson [...] spinal instability with flexion or extension RADIOLOGY Anan Heaton D O - 06/26/2021 EXAM: 4 [...] No spinal instability with flexion or extension [facility] Radiology Study observation (narrative) [facility] XR Spine Lumbar and Sacrum 5 ViewsOrdered By: Anna Heaton on 06-26-2021 [facility] Work Phone: XR CHEST PA AND LATERALon XR CHEST PA AND LATERAL CLINICAL HISTORY: Fever and cough. COMPARISON: None. FINDINGS: PA and lateral views of the chest obtained. Cardiomediastinal silhouette is normal. Lungs are clear, no evidence of infiltrate or pleural effusion. No suspicious nodule or mass. No evidence of pneumothorax. No acute bony abnormality. IMPRESSION: No acute abnormality. Normal [facility] NOVEL CORONAVIRUSon 02-29-20 21 NARRATIVE This test was performed using isothermal ZAIRA and has been approved as Emergency Use Authorization (EUA) for the qualitative detection [id number] nucleic acid. Normal [facility] Comment on above: Performed By: #### C OVID #### Testing performed at [address] [address] SARS-CoV-2 (COVID-19) RNA ZAIRA+probe Ql (Unsp spec) Not detected Normal NOT DETECTED [facility] Comment on above: Result Comment: Nega tive [...] #### C OVID #### Testing performed at [address] [place] [address] COVID-19 PCRon 01-28-2020 SARS-CoV-2 (COVID-19) RNA ZAIRA+probe Ql (Unsp spec) Not detected Normal Not Detected [facility] Comment on above: Result Comment: This nucleic acid amplification test was developed and its performance characteristics determined by [employer]. Nucleic acid amplification tests include PCR and [...] assay. Performed By: #### C VDPCR #### [facility] Laboratory [address] [place] [address] Juan Francisco Saldana BASIC METABOLIC PANELon 09-07 Anion gap [Moles/Vol] 14 mmol/L [employer] Calcium [Mass/Vol] 9.8 mg/dL [facility] Chloride [Moles/Vol] 99 mmol/L [facility] Comment on above: Please note: Triglyc eride levels of 600mg/dL or higher may positively bias chloride results by approximately 2.1 mmol CO2 [Moles/Vol] 27 mmol/L [facility] Creatinine [Mass/Vol] 0.79 mg/dL [employer] GFR/1.73 sq M predicted among blacks MDRD (S/P/Bld) [Vol rate/Area] mL/min/{1.73_m2} ml/min/1.73sq .m [employer] GFR/1.73 sq M predicted among non-blacks MDRD (S/P/Bld) [Vol rate/Area] mL/min/{1.73_m2} ml/min/1.73sq .m [employer] GFR/1.73 sq M predicted among non-blacks MDRD (S/P/Bld) [Vol rate/Area] Average GFR for 20-29 years old = 116. [employer] Comment on above: Chronic Kidney disea se, GFR = <60. Kidney failure, GFR = <15. The GFR estimate is not adjusted for extreme body surface area or acute process, nor has it been validated for women or ethnic groups other than and . Glucose post fast [Mass/Vol] 92 mg/dL [facility] Comment on above: NORMAL <100 mg/dL PREDIABETES 101-126 mg/dL DIABETES 126 mg/dL or higher Potassium [Moles/Vol] 3.8 mmol/L [facility] Sodium [Moles/Vol] 140 mmol/L [facility] Urea nitrogen [Mass/Vol] 10 mg/dL [facility] BETA HCG, QUAL, BLOODon 09-07 HCG ( test) Ql Negative [facility] CBC, EDIF, PLATELETon 2018 ABSOLUTE BASOPHIL COUNT 0.1 X10 [facility] Basophils/100 WBC (Bld) 0.7 % 0 - 2 % [facility] Differential cell count method Nom (Bld) AUTO DIFF % [facility] Eosinophils (Bld) [#/Vol] 0.10 10*3/uL X10 [facility] Eosinophils/100 WBC (Bld) 1.5 % 0 - 11 % [facility] Erythrocyte distribution width (RBC) [Ratio] 15.9 % High 11.5 - 14.5 % [facility] Hematocrit (Bld) [Volume fraction] 44.6 % 36 - 48 % [facility] Hemoglobin (Bld) [Mass/Vol] 15.4 g/dL [facility] Interpretation and review of laboratory results Abnormal [facility] Lymphocytes (Bld) [#/Vol] 1.20 10*3/uL X10 [facility] Lymphocytes/100 WBC (Bld) 13.4 % Low 20 - 55 % [facility] MCH (RBC) [Entitic mass] 29.7 pg 26 - 35 PG [facility] MCHC (RBC) [Mass/Vol] 34.5 g/dL [facility] MCV (RBC) [Entitic vol] 86.3 fL [facility] Monocytes (Bld) [#/Vol] 0.6 10*3/uL X10 [facility] Monocytes/100 WBC (Bld) 6.7 % 0 - 10 % [facility] Neutrophils (Bld) [#/Vol] 7.2 10*3/uL High [facility] Neutrophils/100 WBC (Bld) 77.7 % High 37 - 75 % [facility] Platelet mean volume (Bld) [Entitic vol] 7.9 fL [facility] Platelets (Bld) [#/Vol] 338 10*3/uL [facility] RBC (Bld) [#/Vol] 5.17 10*6/uL [facility] WBC (Bld) [#/Vol] 9.2 10*3/uL [facility] CBC, EDIF, PLATELETon 2018 ABSOLUTE BASOPHIL COUNT 0.1 X10 [facility] Basophils/100 WBC (Bld) 0.9 % 0 - 2 % [facility] Differential cell count method Nom (Bld) AUTO DIFF % [facility] Eosinophils #/vol (Bld) 0.20 10*3/uL X10 [...] 22.5 % 20 - 55 % [facility] MCH Entitic mass (RBC) 29.4 pg 26 - 35 PG [facility] MCHC mass conc (RBC) 33.5 g/dL [facility] MCV Entitic volume (RBC) 87.7 fL [facility] Monocytes #/vol (Bld) 0.5 10*3/uL X10 [facility] Monocytes/100 WBC (Bld) 6.7 % 0 - 10 % [facility] Neutrophils #/vol (Bld) 5.4 10*3/uL [facility] Neutrophils/100 WBC (Bld) 67.5 % 37 - 75 % [facility] Platelet mean volume Entitic volume (Bld) 8.1 fL [facility] Platelets #/vol (Bld) 383 10*3/uL [facility] RBC #/vol (Bld) 5.24 10*6/uL [facility] WBC #/vol (Bld) 8.0 10*3/uL [facility] COMPREHENSIVE METABOLIC PANE Gregory 07-02-2018 Albumin mass conc 5.1 G/dl High 3.5 - 5 G/dl [facility] Albumin/Globulin mass ratio 1.6 {ratio} [facility] ALP enzyme act/vol 63 U/L [facility] ALT enzyme act/vol 46 U/L [facility] AST enzyme act/vol 41 U/L High [facility] Bilirubin mass conc 0.3 mg/dL [facility] Calcium mass conc 9.8 mg/dL [facility] Chloride molar conc 103 mmol/L [facility] Comment on above: Please note: Triglyc eride levels of 600mg/dL or higher may positively bias chloride results by approximately 2.1 mmol CO2 molar conc 26 mmol/L [facility] Creatinine mass conc 0.85 mg/dL [facility] GFR/1.73 sq M predicted among blacks MDRD vol rate/area (S/P/Bld) mL/min/{1.73_m2} ml/min/1.73sq .m [facility] GFR/1.73 sq M predicted among non-blacks MDRD vol rate/area (S/P/Bld) mL/min/{1.73_m2} ml/min/1.73sq .m [facility] GFR/1.73 sq M predicted among non-blacks MDRD vol rate/area (S/P/Bld) Average GFR for 20-29 years old = 116. [facility] [employer] Comment on above: Chronic Kidney disea se, GFR = <60. Kidney failure, GFR = <15. The GFR estimate is not adjusted for extreme body surface area or acute process, nor has it been validated for women or ethnic groups other than and . Glucose fasting mass conc 114 mg/dL High [facility] [employer] Comment on above: NORMAL <100 mg/dL PREDIABETES 101-126 mg/dL DIABETES 126 mg/dL or higher Interpretation and review of laboratory results Abnormal [facility] Potassium molar conc 3.5 mmol/L [facility] Protein mass conc 8.3 g/dL High [facility] Sodium molar conc 142 mmol/L [facility] Urea nitrogen mass conc 11 mg/dL [facility] D-DIMER,QUANTITATIVEon 07-02 Fibrin D-dimer FEU mass conc (PPP) 0.33 [facility] [employer] LIPASEon 07-02-2018 Lipase enzyme act/vol 55 U/L 23 - 300 U/L [facility] [employer] TROPONINon 07-02-2018 Troponin I.cardiac mass conc ng/mL 0 - 0.08 ng/mL [facility] KNEE RIGHT 1 OR 2 Son 02-07 KNEE RIGHT 1 OR 2 VWS [facility] Department of Radiology [address] [place] [id number] Patient Name: MAMADOU BERRY : 1990 [...] effusion Electronically signed by:Ha Harvey. Transcribed by: [email or web address], User Resident: Electronically Signed by: HA HARVEY @ 02/17/2018 03:54 PM Normal [facility] Comment on above: Order Comment: , Aidae ws (X-RAY, KNEE): AP, Lateral , Weight Bearing?: N , Views (X-RAY, KNEE): AP, Lateral , Weight Bearing?: N , , , Ordering Provider - HA RAYMOND MD , Operative Reporton 8 Operative Report MR#: [id number] S [facility] Pt. Name: Mamadou Berry Room #: 0C Discharge 02/06/2018 Date: Birthdate: 1990 OPERATIVE REPORT DATE OF SURGERY: 02/06/2018 SURGEON: Ha Raymond M.D. 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 This would be in form of right [...] meniscus. We then utilized a 4.5 mm Kilauea Reamer followed by a 10 mm Emergency Communications Dispatcher to make a tunnel. Curette was utilized [...] thigh. We then reamed with 4.5 mm Kilauea Reamer full thickness and then a low-profile [...] knee hyperflexed, we placed a malleted a map editor followed by guidewire in an 8 x [...] right lower extremity. She will be given [place] for pain control and aspirin for DVT prophylaxis. I will see her back in the clinic in 5 days for a wound check and initiation of physical therapy. Electronically Signed by: Ha Raymond M.D. 02/16/2018 10:43 A Ha Raymond M.D. Date Dict: 02/06/2018/01:17 P/Ha Raymond M.D. Date Trans: 02/07/2018 12:12 Giovana/aliyah [id number] cc: Fatemeh Palencia M.D. [address], [facility] [address] [place] [facility] KNEE RIGHT 1 OR 2 [facility] 01-10 KNEE RIGHT 1 OR 2 S [facility] Department of Radiology [address] [place] [phone] Patient Name: MAMADOU BERRY : 1990 [...] Documentation Electronically signed by:Ha Harvey. Transcribed by: [email or web address], User Resident: Electronically Signed by: HA HARVEY @ 02/06/2018 01:22 PM Normal [facility] Comment on above: Order Comment: right knee scope POC GLUCOSE LABon 02-06-2018 Glucose mass conc 100 mg/dL Normal 70-100 [facility] Comment on above: Performed By: #### 8 [id number] #### [address] LOWER EXTREMITY WO CONTRA ST RIGHTon 12-19-2017 CT LOWER EXTREMITY WO CONTRAST RIGHT [facility] Department of Radiology [address] [place] [address] Patient Name: MAMADOU BERRY : 1990 Sex: F Age: Race: NA Pt. Location: 84 Patient Status: D Ordered Date: 12/08/2017 5:00:00 PM Completed Date: 12/19/2017 05:53 PM Requesting Provider: HA RAYMOND Attending Provider: HA RAYMOND Report Copy To: SELF, REFERRED Signs & Symptoms: M25.569 Pain in unspecified knee I10 History: [place] phone [phone] Needs F/U with ortho [facility] [place] REQ [id number] REF [id number] Comments: ACL tunnel osteolysis Exam: CT LOWER [...] bodies. Electronically signed by:Ha Harvey. Transcribed by: [email or web address], User Resident: Electronically Signed by: HA HARVEY @ 12/21/2017 11:35 AM Normal [facility] Comment on above: Order Comment: ACL t unnel osteolysis LOWER EXTREMITY JOINT SURVEY on 12-08-2017 LOWER EXTREMITY JOINT SURVEY [facility] Department of Radiology [address] [place] [phone] Patient Name: MAMADOU BERRY : 1990 [...] result Electronically signed by:Ha Harvey. Transcribed by: [email or web address], User Resident: Electronically Signed by: HA HARVEY @ 12/08/2017 04:39 PM Normal [facility] Comment on above: Order Comment: , , = ========= , Ordering Provider - HA RAYMOND MD , Vital Signs Date Time Vital Sign Value Performing Clinician [place] pate 10-30-2023 10:03-0400 Diastolic blood pressure 91 mm[Hg] Dayron Foskey DO Work Phone: [facility] [employer] 10-30-2023 10:03-0400 Heart rate 85 /min Dayron Foskey DO Work Phone: [employer] [facility] 10-30-2023 10:03-0400 Respiratory rate 14 /min Dayron Foskey DO Work Phone: [facility] 10-30-2023 10:03-0400 SaO2% (BldA) [Mass fraction] 98 % Dayron Foskey DO Work Phone: [facility] 10-30-2023 10:03-0400 Systolic blood pressure 168 mm[Hg] Dayron Foskey DO Work Phone: [facility] 10-30-2023 09:44-0400 Body temperature 98.2 [degF] Dayron Tinsley DO Work Phone: [facility] 09-05-2021 11:08-0400 Body height 175.3 cm Margaret Boo MD Work Phone: [facility] 09-05-2021 11:08-0400 Body mass index (BMI) [Ratio] 42.83 kg/m2 Margaret Boo MD Work Phone: [facility] 09-05-2021 11:08-0400 Body temperature 97.11 [degF] Margaret Boo MD Work Phone: [facility] 09-05-2021 11:08-0400 Body weight 131.54 kg Margaret Boo MD Work Phone: [facility] 09-05-2021 11:08-0400 Heart rate 81 /min Margaret Boo MD Work Phone: [facility] 09-05-2021 11:08-0400 SaO2% (BldA) [Mass fraction] 97 % Margaret Boo MD Work Phone: [facility] 08-24-2021 15:16-0400 Diastolic blood pressure 80 mm[Hg] Margaret Boo MD Work Phone: [facility] 08-24-2021 15:16-0400 Heart rate 73 /min Margaret Boo MD Work Phone: [facility] 08-24-2021 15:16-0400 Respiratory rate 14 /min Margaret Boo MD Work Phone: [facility] 08-24-2021 15:16-0400 SaO2% (BldA) [Mass fraction] 98 % Margaret Boo MD Work Phone: [facility] 08-24-2021 15:16-0400 Systolic blood pressure 127 mm[Hg] Margaret Boo MD Work Phone: [facility] 08-24-2021 14:48-0400 Body temperature 98.4 [degF] Margaret Boo MD Work Phone: [facility] 08-24-2021 14:48-0400 Diastolic blood pressure 58 mm[Hg] Margaret Boo MD Work Phone: [facility] 08-24-2021 14:48-0400 Heart rate 66 /min Margaret Boo MD Work Phone: [facility] 08-24-2021 14:48-0400 Respiratory rate 16 /min Margaret Boo MD Work Phone: [facility] 08-24-2021 14:48-0400 SaO2% (BldA) [Mass fraction] 97 % Margaret Boo MD Work Phone: [facility] 08-24-2021 14:48-0400 Systolic blood pressure 123 mm[Hg] Margaret Boo MD Work Phone: [facility] 08-24-2021 14:00-0400 Diastolic blood pressure 73 mm[Hg] Jeyson Medina MD Work Phone: [facility] 08-24-2021 14:00-0400 Respiratory rate 17 /min Jeyson Medina MD Work Phone: [facility] 08-24-2021 14:00-0400 SaO2% (BldA) [Mass fraction] 95 % Jeyson Medina MD Work Phone: [facility] 08-24-2021 14:00-0400 Systolic blood pressure 140 mm[Hg] Jeyson Medina MD Work Phone: [facility] 08-08-2021 11:04-0400 Body height 175.3 cm Margaret Boo MD Work Phone: [facility] 08-08-2021 11:04-0400 Body mass index (BMI) [Ratio] 42.83 kg/m2 Margaret Boo MD Work Phone: [facility] 08-08-2021 11:04-0400 Body temperature 97 [degF] Margaret Boo MD Work Phone: [facility] 08-08-2021 11:04-0400 Body weight 131.54 kg Margaret Boo MD Work Phone: [facility] 08-08-2021 11:04-0400 Heart rate 107 /min Margaret Boo MD Work Phone: [facility] 08-08-2021 11:04-0400 SaO2% (BldA) [Mass fraction] 97 % Margaret Boo MD Work Phone: [facility] 07-13-2021 16:23-0400 Body height 175.3 cm Faith BROCK-C Work Phone: [facility] 07-13-2021 16:23-0400 Body mass index (BMI) [Ratio] 41.35 kg/m2 Faith BROCK-C Work Phone: [facility] 07-13-2021 16:23-0400 Body weight 127.01 kg Faith BROCK-C Work Phone: [facility] 07-13-2021 16:23-0400 Diastolic blood pressure 103 mm[Hg] Faith BROCK-C Work Phone: [facility] 07-13-2021 16:23-0400 Heart rate 105 /min Faith Fela PA-C Work Phone: [facility] 07-13-2021 16:23-0400 Systolic blood pressure 145 mm[Hg] Faith Davis PA-C Work Phone: [facility] 06-26-2021 10:17-0400 Body height 175.3 cm Faith Davis PA-C Work Phone: [facility] 06-26-2021 10:17-0400 Body mass index (BMI) [Ratio] 39.72 kg/m2 Faith Davis PA-C Work Phone: [facility] 06-26-2021 10:17-0400 Body temperature 97.11 [degF] Faith Davis PA-C Work Phone: [facility] 06-26-2021 10:17-0400 Body weight 122.02 kg Faith Davis PA-C Work Phone: [facility] 06-26-2021 10:17-0400 Heart rate 96 /min Faith Davis PA-C Work Phone: [facility] 06-26-2021 10:17-0400 SaO2% (BldA) [Mass fraction] 100 % Faith Davis PA-C Work Phone: [facility] 10-10-2018 14:090400 Height 175.3 cm [facility] 10-10-2018 14:08-0400 Body Temperature 98.01 [degF] [facility] 10-10-2018 14:08-0400 BP Diastolic 99 mm[Hg] [facility] 10-10-2018 14:08-0400 BP Systolic 151 mm[Hg] [facility] 10-10-2018 14:08-0400 Pulse (Heart Rate) 83 /min [facility] 10-10-2018 14:08-0400 Pulse Oximetry 99 % [facility] 10-10-2018 14:08-0400 Respiratory Rate 20 /[facility] 09-[facility] 01:02-0400 BP Diastolic 70 mm[Hg] [facility] 09-24-2018 01:02-0400 BP Systolic 159 mm[Hg] [facility] 09-24-2018 01:02-0400 Pulse (Heart Rate) 102 /min [facility] 09-24-2018 01:02-0400 Pulse Oximetry 98 % [facility] 09-24-2018 01:02-0400 Respiratory Rate 18 /min [facility] 09-23-2018 23:10-0400 Height 175.3 cm [facility] 09-23-2018 23:09-0400 Body Temperature 98.29 [degF] [facility] 09-22-2018 20:09-0400 Height 175.3 cm [facility] 09-22-2018 20:08-0400 Body Temperature 97.7 [degF] [facility] 09-22-2018 20:08-0400 BP Diastolic 90 mm[Hg] [facility] 09-22-2018 20:08-0400 BP Systolic 166 mm[Hg] [facility] 09-22-2018 20:08-0400 Pulse (Heart Rate) 106 /min [facility] 09-22-2018 20:08-0400 Pulse Oximetry 94 % [facility] 09-22-2018 20:08-0400 Respiratory Rate 18 /min [facility] 07-02-2018 19:00-0400 BP Diastolic 86 mm[Hg] [facility] 07-02-2018 19:00-0400 BP Systolic 171 mm[Hg] [facility] 07-02-2018 19:00-0400 Pulse (Heart Rate) 110 /min [facility] 07-02-2018 19:00-0400 Pulse Oximetry 93 % [facility] 07-02-2018 19:00-0400 Respiratory Rate 25 /min [facility] 07-02-2018 16:40-0400 Height 177.8 cm [facility] Encounters Encounter Date Encounter Type Care Provider Facility Start: 10-30-2023 End: 10-30-2023 Emergency department patient visit [facility] Tinsley DO [facility] Start: 07-03-2023 End: 07-03-2023 Emergency department patient visit RAMONA SHEN [facility] Start: 04-18-2023 ambulatory FATEMEH M Paul [facility] Start: 11-22-2022 ambulatory FATEMEH M Paul [facility] Start: 09-05-2021 ambulatory SAFDAKen BOO Facility: [facility] Start: 09-05-2021 End: 09-05-2021 Office outpatient visit 15 minutes Margaret Boo MD Work Phone: [facility] Comment on above: Numbness and tinglin g [...] MD Work Phone: [facility] Comment on above: Numbness and tinglin g of both feet (Primary Dx); Lumbar radiculopathy Start: 07-25-2021 ambulatory FATEMEH M HOY Facility: [facility] Start: 07-13-2021 ambulatory FATEMEH M HOY Facility: [facility] Start: 07-13-2021 End: 07-13-2021 Subsequent hospital visit by physician Faith Davis PA-C Work Phone: [facility] Comment on above: Arrived Start: 06-26-2021 ambulatory FAETMEH M HOY Facility: [facility] [...] 01-10-2020 End: 01-10-2020 ambulatory FATEMEH ANTHONY DO Facility:[facility] Start: 10-10-2018 End: 10-10-2018 Emergency department patient visit Dany Montes Work Phone: [facility] Start: 09-23-2018 End: 09-24-2018 Emergency department patient visit Delon Gutierrez Work Phone: [facility] Start: 09-22-2018 End: 09-22-2018 Emergency department patient visit Dayron Tinsley Work Phone: [facility] Start: 07-02-2018 End: 07-02-2018 Emergency department patient visit Kalen Oseguera Work Phone: [facility] Start: 02-17-2018 End: 02-18-2018 Patient encounter procedure HA RAYMOND Facility:[facility] Start: 02-06-2018 End: 02-07-2018 Patient encounter procedure DAYRON RAYMOND Facility:[facility] Start: 01-02-2018 End: 01-03-2018 Patient encounter procedure HA RAYMOND Facility:[facility] Start: 12-19-2017 End: 12-20-2017 Patient encounter procedure HA RAYMOND Facility:[facility] Start: 12-08-2017 End: 12-09-2017 Patient encounter procedure HA RAYMOND Facility:[facility] Start: 12-02-2017 End: 12-03-2017 Patient encounter procedure DEFAULT PHYSICIAN Facility:[facility] Procedures Date Procedure Procedure Detail Performing Clinician [...] 11-09-2023 Influenza vaccination INFLUENZA VACC INE (#1) [facility] Start: 11-08-2022 COVID-19 VACCINE ( season) COVID-19 VACCINE ( season) [facility] Start: 11-08-2021 Influenza vaccination INFLUENZ A VACCINE (Season Ended) [facility] Start: 09-05-2021 End: 09-05-2021 Patient encounter procedure 09/05/2021 Office Visit Multispecialty Margaret Boo MD [address] [place] [address] [facility] Start: 08-24-2021 End: 08-24-2021 Patient encounter procedure [facility] Start: 08-08-2021 End: 08-08-2022 CT Lumbar spine WO contrast CT SPINE LUMBAR WITHOUT CONTRAST Imaging Routine Numbness and tingling of both feet Lumbar radiculopathy Expected: 08/08/2021, Expires: 08/08/2022 [facility] Comment on above: Expected: 08/08/2021 , Expires: 08/08/2022 Start: 08-08-2021 End: 08-08-2022 RF Guidance for injection of Lumbar spine XR FLUORO MYELOGRAM LUMBAR ONLY Imaging Routine Numbness and tingling of both feet Lumbar radiculopathy Expected: 08/08/2021, Expires: 08/08/2022 [facility] Comment on above: Expected: 08/08/2021 , Expires: 08/08/2022 Start: 07-25-2021 End: 07-25-2021 Patient encounter procedure 07/25/2021 Office Visit Multispecialty Margaret Boo MD [address] [place] [address] [facility] Start: 07-13-2021 End: 07-13-2021 Patient encounter procedure 07/13/2021 Appointment Magnetic Resonance Imaging Faith Davis PA-C [address] [place] [address] [facility] Start: 06-26-2021 End: 06-26-2022 MR Lumbar spine WO and W contrast IV MRI SPINE LUMBAR WITH AND WITHOUT CONTRAST Imaging Routine Lumbar radiculopathy Acute bilateral low back pain with bilateral sciatica Expected: 06/26/2021, Expires: 06/26/2022 [facility] Comment on above: Expected: 06/26/2021 , Expires: 06/26/2022 Start: 11-08-2018 Influenza vaccination [facility] Start: 2011 Screening for malignant neoplasm of cervix [facility] Start: 2009 Third diphtheria, tetanus and acellular pertussis (DTaP) vaccination TDAP (ADULT) [facility] Start: 2008 Tetanus vaccination TETANUS [facility] Start: 2005 HIV screening HIV SCREENING DISCUSSI ON [facility] Start: 2003 HIV screening HIV SCREENING DISCUSSI ON [facility] Start: 1995 COVID-19 VACCINE (#1) COVID-19 VACCI NE (#1) [facility] Start: 1995 COVID-19 VACCINE (1) COVID-19 VACCIN E (1) [facility] Start: 1990 COVID-19 VACCINE (#1) COVID-19 VACCI NE (#1) [facility] Start: 1990 Tetanus vaccination TETANUS [facility] System CT of abdomen and pelvis CT ABDOMEN/PELVIS WITHOUT CONTRAST Imaging STAT 07/02/2018 5:49 PM EDT [facility] End: 07-13-2021 MR Lumbar spine WO and W contrast IV [facility] Comment on above: 1 Occurrences starti ng 07/13/2021 until 07/13/2021 End: 07-02-2018 Standard ECG ECG ECG STAT One Time for 1 Occurrences starting 07/02/2018 until 07/02/2018 [employer] Comment on above: One Time for 1 Occur rences starting 07/02/2018 until 07/02/2018 End: 09-23-2018 Standard ECG ECG ECG STAT One Time for 1 Occurrences starting 09/23/2018 until 09/23/2018 [employer] Comment on above: One Time for 1 Occur rences starting 09/23/2018 until 09/23/2018 Immunizations Immunization Date Immunization Notes Care Provider Vivi morse 02-25-2020 influenza virus vaccine, unspecified formulation Faith Davis PA-C Work Phone: [facility] 01-20-2017 influenza virus vaccine, unspecified formulation Delon Gutierrez [facility] Payers Date Payer Category Payer Unknown [id number] 2022 Unknown [id number] 2021 Unknown [id number] 2021 Unknown 2021 Unknown [id number] 2018 Private Health Insurance [employer]ET[employer] A ETNA GENERIC xxxxxxxxxx 2018-Present xxxxxxxxxx [id number] 2014 Unknown [id number] Private Health Insurance [id number] 1990 Unknown [id number] 2.16.840.1.610953.3.579. 2.647 1990 Unknown [id number] 2.16.840.1.213214.3.579. 2.647 1990 Unknown [id number] 2.16.840.1.111977.3.579. 2.647 1990 Unknown [id number] 2.16.840.1.114292.3.579. 2.647 1990 Unknown [id number] 2.16.840.1.423646.3.579. 2.647 1990 Unknown [id number] 2.16.840.1.061267.3.579. 2.647 1990 Unknown [id number] 2.16.840.1.607484.3.579. 2.419 1990 Unknown [id number] 2.16.840.1.189412.3.579. 2.593 1990 Unknown [id number] 2.16.840.1.271290.3.579. 2.593 1990 Unknown [id number] 2.16.840.1.260484.3.579. 2.593 1990 Unknown [id number] 2.16.840.1.741993.3.579. 2.593 1990 Unknown [id number] 2.16.840.1.009497.3.579. 2.594 1990 Unknown [id number] 2.16.840.1.252296.3.579. 2.594 1990 Unknown [id number] 2.16.840.1.531831.3.579. 2.594 1990 Unknown [id number] 2.16.840.1.191485.3.579. 2.594 1990 Unknown [id number] 2.16.840.1.820936.3.579. 2.594 1990 Unknown [id number] 2.16.840.1.893661.3.579. 2.594 1990 Unknown [id number] 2.16.840.1.849777.3.579. 2.594 1990 Unknown [id number] 2.16.840.1.371321.3.579. 2.173 1990 Unknown [id number] 2.16.840.1.472130.3.579. 2.983 1990 Unknown [id number] 2.16.840.1.160276.3.579. 2.983 1990 Unknown [id number] 2.16.840.1.170828.3.579. 2.983 1959 Private Health Insurance [id number] 1959 Self-pay [id number] 1959 Unknown [id number] 1959 Worker's Compensation [id number] Social History Date Type Detail Facility Start: 07-02-2018 End: 10-10-2018 Tobacco smoking status [facility] Never smoker [facility] Start: 07-02-2018 Alcohol Comment socially SILVERIO Gomez [facility] Start: 1990 Sex Assigned At Not on file [facility] Start: 07-02-2018 Tobacco use and exposure Smokeless tobacco non-user [facility] Start: 06-26-2021 End: 10-30-2023 Alcohol intake Current drinker of alcohol (finding) [facility] Start: 06-08-2021 End: 06-18-2021 Exposure to SARS-CoV-2 (event) Not sure [facility] Start: 06-26-2020 End: 09-05-2021 History of Social function [facility] Start: 06-26-2020 End: 09-05-2021 Tobacco use panel [facility] Adolescent depressio n screening assessment 2 [facility] Start: 05-17-2019 Gender identity Identifies as male gender (finding) [facility] Medical Equipment Procedure Code Equipment Code Equipment Origin al Text Equipment Identifier Dates fluorescein ophthalmic strip 0.6 mg [id number] Start: 10-10-2018 End: 10-10-2018 Clinical Notes 06-26-2021 to 10-30-2023 Radha Parikh RN - 10/30/2023 10:30 AM EDJose Luis Parikh RN - 10/30/2023 10:30 AM EDMira Tinsley DO - 10/30/2023 9:43 AM EDTDischarge InstructionsAttachmentsDischarge Instructions Note Date & Type Note Facility 10-30-[address] Tinsley at [facility]. Discharge instructions regviewed in detail, verbally voices understanding. N/c voiced, aware to call PCP for follow-up. And take AM BP med. [facility] 10-30-[address] Tinsley at [facility]. Discharge instructions regviewed in detail, verbally voices [...] Laterality: Left; Surgeon: Margaret Boo MD; Location: [facility] MA[facility] OR KNEE SURGERY Right x5 Allergies: [...] DO 10/30/23 1029 documented in this encounter [facility] 10-30-2023 Hospital Discharg e instructions Dayron [...] You may find a provider through the [employer] Physician Referral Service by calling [phone] or by visiting [email or web address] Thank You for choosing the [facility] Emergency Department! The following attachments cannot be sent through Care Everywhere.Uvulitis (Mozambican)documented in this encounter [facility] 10-30-2023 Physician Emergency department Note Emergency Department Report [facility] EMERGENCY [facility]ICINE Service Date:.10/30/23 PCP: Fatemeh Palencia [...] Laterality: Left; Surgeon: Margaret Boo MD; Location: [facility] OR DISCECTOMY POSTERIOR LUMBAR Left 03/30/2019 Laterality: Left; Surgeon: Margaret Boo MD; Location: [facility] OR KNEE SURGERY Right x5 Allergies: [...] above information. Dayron Tinsley DO 10/30/23 1029 [facility] 09-05-2021 History of Presen t illness Narrative [...] with the patient and family. The total udkv-ty-pdun time spent on this visit was greater than 30 minutes, with the majority (>50%) of the time spent in counseling, discussing pathology and management options, and coordination of care. Margaret Boo MD documented in this encounter [facility] 08-24-2021 History of Presen t illness [...] per MD order. documented in this encounter [facility] 08-24-2021 Hospital Discharg e instructions Lizz [...] Radiology at documented in this encounter [facility] 08-24-2021 History of Presen t illness Narrative Patient Information: Inpatient/Outpatient:Outpatient Weight: 290lb Code Status: Full Code IV: No Supervisor Fertilizer Processing: Klarissa Santiago Radiology waiting area CT orders [...] Following CT documented in this encounter [facility] 08-08-2021 History of Presen t illness [...] with the patient and family. The total vhmf-yy-lref time spent on this visit was greater than 30 minutes, with the majority (>50%) of the time spent in counseling, discussing pathology and management options, and coordination of care. Margaret Boo MD documented in this encounter [facility] 06-26-2021 History of Presen t illness [...] to sleep. 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 He is ambulatory without the use of [...] after MRI documented in this encounter [facility] Evaluation note Diagnosis Low back pain, unspecified back pain laterality, unspecified chronicity, unspecified whether sciatica present- Primary Lumbar radiculopathy Thoracic or lumbosacral neuritis or radiculitis, unspecified Acute bilateral low back pain with bilateral sciatica S/P lumbar microdiscectomy Other postprocedural status Low back pain, unspecified back pain laterality, unspecified chronicity, unspecified whether sciatica present [facility] Diagnosis Low back pain, unspecified back pain laterality, unspecified chronicity, unspecified whether sciatica present [facility] Lumbar radiculopathy Thoracic or lumbosacral neuritis or radiculitis, unspecified Acute bilateral low back pain with bilateral sciatica [facility] Numbness and tingling of both feet- Primary Lumbar radiculopathy Thoracic or lumbosacral neuritis or radiculitis, unspecified [facility] Numbness and tingling of both feet Lumbar radiculopathy Thoracic or lumbosacral neuritis or radiculitis, unspecified [facility] Numbness and tingling of both feet Lumbar radiculopathy Thoracic or lumbosacral neuritis or radiculitis, unspecified [facility] Numbness and tingling of both feet- Primary [facility] Diagnosis Uvulitis- Primary Cellulitis and abscess of oral soft tissues [facility] Consultation (Routine) - New Request Specialty Diagnoses / Procedures Referred By Osito galicia Referred To Contact Neurology Diagnoses Numbness and tingling of both feet Margaret Boo MD [address] [place] [address] Referral ID Status Reason Start Date Expiration Date V isits Requested Visits Authorized [id number] New Request 09/05/2021 09/30/2022 1 1 [facility] Summary Purpose Family History No Family [...] Procedures ECG Kalen Oseguera MD [address] [place] [address] Status Reason Specialty Diagnoses / Procedures Referred By Contact Referred To Contact New Request Procedures Delon Perez MD [address] [place] [address] Specialty Diagnoses / Procedures Referred By Contac t Referred To Contact Physical Therapy Diagnoses Low back pain, unspecified back pain laterality, unspecified chronicity, unspecified whether sciatica present Lumbar radiculopathy Acute bilateral low back pain with bilateral sciatica Faith Davis, TAWANNAC [address] [place] [address] Referral ID Status Reason Start Date Expiration Date V isits Requested Visits Authorized [id number] New Request 06/26/2021 07/21/2022 1 1 Scheduling Instructions [facility] [address] [facility] 2nd [address] [place] [address] Fax [facility] (Neck and Back Therapy) [address] [place] [phone] FAX [facility] [address] [address] [facility] [place] [address] [phone] FAX [facility] [address] [place] [address] FAX Physical Therapy at [address] [address] FAX [facility] [address] [address] FAX [facility] [address] [place], [place] [address] FAX Specialty Diagnoses / Procedures Referred By Contac t Referred To Contact Diagnoses Lumbar radiculopathy Acute bilateral low back pain with bilateral sciatica Procedures MRI SPINE LUMBAR WITH AND WITHOUT CONTRAST RI MRI, LUMBAR SPINE LENO Faith Davis PA-C [address] [place] [address] Referral ID Status Reason Start Date Expiration Date V isits Requested Visits Authorized [id number] New Request 06/26/2021 07/21/2022 1 1 Referral ID Status Reason Start Date Expiration Date V isits Requested Visits Authorized [id number] Pending Review 06/26/2021 07/21/2022 1 1 Specialty Diagnoses / Procedures Referred By Contac t Referred To Contact Diagnoses Numbness and tingling of both feet Lumbar radiculopathy Procedures XR FLUORO MYELOGRAM LUMBAR ONLY Margaret Boo MD [address] [place] [address] Referral ID Status Reason Start Date Expiration Date V isits Requested Visits Authorized [id number] New Request 08/08/2021 09/02/2022 1 1 Specialty Diagnoses / Procedures Referred By Contac t Referred To Contact Diagnoses Numbness and tingling of both feet Lumbar radiculopathy Procedures CT SPINE LUMBAR WITHOUT CONTRAST RI CT SCAN,LUMBAR SPINE,W/O CONTRAST Margaret Boo MD [address] [place] [address] Referral ID Status Reason Start Date Expiration Date V isits Requested Visits Authorized [id number] Pending Review 08/08/2021 09/02/2022 1 1 Specialty Diagnoses / Procedures Referred By Contac t Referred To Contact Diagnoses Numbness and tingling of both feet Lumbar radiculopathy Procedures CT SPINE LUMBAR WITH CONTRAST CT SPINE LUMBAR WITHOUT CONTRAST RI CT SCAN,LUMBAR SPINE,W/O CONTRAST RI CT SCAN LUMBAR SP CONTRAST Vin Humphrey MD [address] [address] [place] [address] Referral ID Status Reason Start Date Expiration Date Visits Re quested Visits Authorized [id number] Closed 08/08/2021 09/02/2022 1 Referral ID Status Reason Start Date Expiration Date V isits Requested Visits Authorized [id number] Pending Review 08/08/2021 09/02/2022 1 1 Discharge Instructions * Attachments The following attachments cannot be sent through Care Everywhere. * Abdominal Pain, Adult ([place]ozambican) documented in this encounter* Instructions* Dayron Tinsley, [...] You may find a provider through the [employer] Physician Referral Service by calling [phone] or by visiting [email or web address] Thank You for choosing the [facility] Emergency Department! * Attachments The following attachments cannot be sent through Care Everywhere. * Tooth and Gum Pain (Mozambican) documented in this encounter* Attachments The following attachments cannot be sent through Care Everywhere. * Nausea and Vomiting (Mozambican) documented in this encounter* Attachments The following attachments cannot be sent through Care Everywhere. * Conjunctivitis ([place]ozambican) documented in this encounter Assessments Diagnosis LUQ pain- Primary Abdominal pain, left upper quadrant Anxiety Anxiety state, unspecified Diagnosis Pain, dental- Primary Unspecified disorder of the teeth and supporting structures Diagnosis Non-intractable vomiting with nausea, unspecified vomiting type- Primary Diagnosis Conjunctivitis of right eye, unspecified conjunctivitis type- Primary Additional Source Comments INFORMATION SOURCE (unrecogn ized section and content) DATE CREATED AUTHOR 04/04/2018 [facility] DATE CREATED AUTHOR AUTHOR'S ORGANIZ ATION 01/19/2021 [facility] DATE CREATED AUTHOR AUTHOR'S ORGANIZ ATION 01/21/2021 [facility] DATE CREATED AUTHOR AUTHOR'S ORGANIZ ATION 03/21/2021 [facility] DATE CREATED AUTHOR AUTHOR'S ORGANIZ ATION 09/06/2021 [facility] DATE CREATED AUTHOR AUTHOR'S ORGANIZ ATION 07/05/2023 [facility] DATE CREATED AUTHOR AUTHOR'S ORGANIZ ATION 11/08/2023 [facility] Reason for Visit (unrecogniz ed [...] MRI SPINE LUMBAR WITH AND WITHOUT CONTRAST RI MRI, LUMBAR SPINE COMBO Faith Davis, CARSON [address] [place] [address] Referral ID Status Reason Start Date Expiration Date V isits Requested Visits Authorized [id number] Pending Review 06/26/2021 07/21/2022 1 1 Reason Comments Follow-up Specialty Diagnoses / Procedures Referred By Osito galicia Referred To Contact Diagnoses Numbness and tingling of both feet Lumbar radiculopathy Procedures CT SPINE LUMBAR WITH CONTRAST CT SPINE LUMBAR WITHOUT CONTRAST RI CT SCAN,LUMBAR SPINE,W/O CONTRAST RI CT SCAN LUMBAR SP CONTRAST Vin Humphrey MD [address] [facility] [address] [place] [address] Referral ID Status Reason Start Date Expiration Date Visits Re quested Visits Authorized [id number] Closed 08/08/2021 09/02/2022 1 1 Specialty Diagnoses / Procedures Referred By Contac t Referred To Contact Diagnoses Numbness and tingling of both feet Lumbar radiculopathy Procedures XR FLUORO MYELOGRAM LUMBAR ONLY Margaret Boo MD [address] [place] [address] Referral ID Status Reason Start Date Expiration Date V isits Requested Visits Authorized [id number] Pending Review 08/08/2021 09/02/2022 1 1 Reason Comments Follow-up Reason Comments Dysphagia Patient reports vomi ting approximately 0615 AM with swollen uvula, voice change, and dysphagia since. Patient denies difficulty breathing and changes to medications. (unrecognized sect ion and content) No Status Records FoundNo Status Records Found Care Teams (unrecognized sec tion and content) Acls Nurse Relationship Specialty Start Date End Date Fatemeh Palencia MD [address] [place] [address] PCP - General Family Medicine 07/02/18 Acls Nurse Relationship Specialty Start Date End Date Fatemeh Palencia MD [address] [place] [address] PCP - General Family Medicine 07/02/18 Acls Nurse Relationship Specialty Start Date End Date Fatemeh Palencia MD [address] [place] [address] PCP - General Family Medicine 07/02/18 Acls Nurse Relationship Specialty Start Date End Date Fatemeh Palencia MD [address] [place] [address] PCP - General Family Medicine 07/02/18 Acls Nurse Relationship Specialty Start [place] [address] [place] [phone] PCP - General Family Medicine 07/02/18 Acls Nurse Relationship Specialty Start [place] [address] [place] [phone] PCP - General Family Medicine 07/02/18 Acls Nurse Relationship Specialty Start [place] [address] [place] [phone] PCP - General Family Medicine 07/02/18 Acls Nurse Relationship Specialty Start [place] [address] [place] [phone] PCP - General Family Medicine 07/02/18 Acls Nurse Relationship Specialty Start Date End Date Fatemeh Palencia MD [address] [place] [phone] PCP - General Family Medicine 07/02/18 Scheduled [...] BE BASED ON THE PRIMARY CLINICAL RECORDS. [employer] [facility]. provides no warranty or guarantee of the accuracy or completeness of information in this document.
[2023-11-28 17:10] LABS: Bilirubin Urine NEGATIVE (NEGATIVE); Blood Urine NEGATIVE (NEGATIVE); Clarity Urine CLOUDY (CLEAR); Color Urine LT. YELLOW (YELLOW); Glucose Urine UA NEGATIVE (NEGATIVE); Ketones Urine NEGATIVE (NEGATIVE); Leukocyte Esterase Urine NEGATIVE (NEGATIVE); Nitrite Urine NEGATIVE (NEGATIVE); Protein Urine NEGATIVE (NEG/TRACE); Specific Gravity Urine >=1.030 (1.005-1.025); Urobilinogen Urine 0.2 EU/dL (0.2-1.0); pH Urine 5.5 (5.0-9.0)
[2023-11-28 17:28] LABS: Amorphous Sediment Urine MANY; Bacteria Urine TRACE #/HPF (NONE SEEN); Cast Seen? NONE SEEN #/LPF (NONE SEEN); Crystals Seen? Seen #/HPF (None Seen); Mucus Urine NONE SEEN (NONE SEEN); RBC Urine NONE SEEN #/HPF (0-2); Squamous Epithelial Cell Urine RARE #/LPF (NONE/RARE); Urine Culture Indicated ALREADY ORDERED; WBC Urine NONE SEEN #/HPF (NONE SEEN)
[2023-11-28 18:38] LABS: C. Difficile PCR NEGATIVE (NEGATIVE)
== END 2023-11-28 16:45 | disposition home or self-care (01) ==
LOC: LAB 16:44
PROVIDERS: PCP Family Medicine; Visit Provider Family Medicine
DX: K52.9 Noninfective gastroenteritis and colitis, unspecified (principal); N39.0 Urinary tract infection, site not specified
CPT/HCPCS: 81001; 87045; 87046; 87086; 87427; 87493

== ENCOUNTER 2024-03-05 12:21 | Outpatient (OUT) | payer BC, SELFPAY ==
[2024-03-05 12:40] LABS: Basophils Absolute Auto 0.1 10^3/uL (0.0-0.1); Basophils Percent Auto 0.9 % (0.2-2.0); Eosinophils Absolute Auto 0.2 10^3/uL (0.0-0.7); Eosinophils Percent Auto 2.2 % (0.9-7.0); Hematocrit 54.6 % (42.0-54.0); Hemoglobin 17.8 g/dL (14.0-18.0); Immature Granulocytes Abs Auto 0.19 10^3/uL (0.00-0.03); Immature Granulocytes Pct Auto 1.9 % (0.0-0.5); Lymphocytes Absolute Auto 2.9 10^3/uL (1.2-3.8); Lymphocytes Percent Auto 28.8 % (20.5-60.0); Mean Corpuscular HGB Conc 32.6 g/dL (29.9-35.2); Mean Corpuscular Hemoglobin 30.2 pg (25.9-34.0); Mean Corpuscular Volume 92.7 fL (80.0-94.0); Mean Platelet Volume 9.3 fL (9.5-13.5); Monocytes Absolute Auto 0.9 10^3/uL (0.3-0.8); Monocytes Percent Auto 8.6 % (1.7-12.0); Neutrophils Absolute Auto 5.7 10^3/uL (1.4-6.5); Neutrophils Percent Auto 57.6 % (43.0-75.0); Platelet Count 331 10^3/uL (150-450); Red Blood Count 5.89 10^6/uL (4.70-6.10); Red Cell Distribution Width 13.4 % (11.0-15.0)
--- OUTSIDE RECORDS SUMMARY | 2024-03-05 12:40 | XMS_ITS | CCD ---
Author Organization [facility] Care Team Providers Care Fish Inspector Name Role Phone DAYRON RAYMOND Admitting Unavailable DAYRON RAYMOND Attending Unavailable FATEMHE PALENCIA Referring Unavailable FATEMEH PALENCIA Primary Care Unavailable DC Procedure Practitioner Unavailab DAYRON Lozada Surgeon Unavailable DC Procedure Practitioner Unavailab VIJAY Joiner Surgeon Unavailable [...] Care Unavailable Fatemeh Palencia Primary Care Provider [phone] FATEMEH ANTHONY DO Admitting Unavailable Alvarado REYEZ [...] Unavailable Fatemeh Palencia MD Primary Care Provider [phone] FATEMEH PALENCIA Primary Care Unavailable MARGARET BOO [...] Fatemeh Palencia MD M Primary Care Provider [phone] HOY, FATEMEH M Primary Care Unavailable DAVID [...] Propensity to adverse reactions (disorder) 5 [facility] Repository (2 sources) lamoTRIgine Drug Allergy 9 [facility] Repository (8 sources) lamoTRIgine Drug Allergy 0 [facility] (1 source) Lamotrigine Propensity to adverse reactions to drug 0 [facility] Medications Current Medications Medication Drug Class(es) Dates [...] Active Start: 04-16-2019 take 1 capsule by [facility] once daily propranolol 120 MG Cap [...] Anesthetic Start: 09-22-2018 End: 09-22-2018 lidocaine-epineph rine 1%-1:[id number] injection 20 mL 2 ml famotidine 10 [...] Range Facility ESTRADIOLon 04-19-2023 ESTRADIOL 71.9 Normal [facility] Comment on above: Result Comment: Unit : pg/mL (NOTE) Adult Female Range Follicular phase 12.5 - 166.0 Ovulation phase 85.8 - 498.0 Luteal phase 43.8 - 211.0 Postmenopausal <6.0 - 54.7 1st trimester 215.0 - >4300.0 Yan ECLIA methodology PERFORMED AT [facility] Performed By: #### L ESTD ####Testing performed at [facility] [place] [address] CBCon 04-18-2023 ABSOLUTE BAS 0.1 10*3/uL Normal 0.0-0.2 [facility] Comment on above: Performed By: #### L ESTD ####Testing performed at [facility], [address] [place] [address] ABSOLUTE EOS 0.2 10*3/uL Normal 0.0-0.7 [facility] Comment on above: Performed By: #### L ESTD ####Testing performed at [facility], [address] [place] [address] ABSOLUTE NEUTROPHIL COUNT 4.6 10*3/uL Normal 1.4-6.5 [facility] Comment on above: Performed By: #### L ESTD ####Testing performed at [facility], [address] [place] [address] Basophils/100 WBC (Bld) 1.0 % Normal 0.0-2.0 [facility] Comment on above: Performed By: #### L ESTD ####Testing performed at [facility], [address] [place] [address] DTYPE AUTO DIFF Normal [facility] Comment on above: Performed By: #### L ESTD ####Testing performed at [facility], [address] [place] [address] Eosinophils/100 WBC (Bld) 2.3 % Normal 0.0-11.0 [facility] Comment on above: Performed By: #### L ESTD ####Testing performed at [facility], [address] [place] [address] Lymphocytes (Bld) [#/Vol] 2.1 10*3/uL Normal 1.2-3.4 [facility] Comment on above: Performed By: #### L ESTD ####Testing performed at [facility], [address] [place] [address] Lymphocytes/100 WBC (Bld) 28.0 % Normal 20.0-55.0 [facility] Comment on above: Performed By: #### L ESTD ####Testing performed at [facility], [address] [place] [address] Monocytes (Bld) [#/Vol] 0.5 10*3/uL Normal 0.0-0.7 [facility] Comment on above: Performed By: #### L ESTD ####Testing performed at [facility], [id number] [place] [address] Monocytes/100 WBC (Bld) 6.9 % Normal 0.0-10.0 [facility] Comment on above: Performed By: #### L ESTD ####Testing performed at [facility], [address] [place] [address] Neutrophils/100 WBC (Bld) 61.8 % Normal 37.0-75.0 [facility] Comment on above: Performed By: #### L ESTD ####Testing performed at [facility], [address] [place] [address] Erythrocyte distribution width (RBC) [Ratio] 14.7 % High 11.5-14.5 [facility] Comment on above: Performed By: #### L ESTD ####Testing performed at [facility], [id number] [place] [address] Hematocrit (Bld) [Volume fraction] 53.2 % High 36.0-48.0 [facility] Comment on above: Performed By: #### L ESTD ####Testing performed at [facility], [address] [place] [address] Hemoglobin (Bld) [Mass/Vol] 17.8 g/dL High 12.0-16.0 [facility] Comment on above: Performed By: #### L ESTD ####Testing performed at [facility], [id number] [place] [address] MCH (RBC) [Entitic mass] 31.1 pg Normal 26.0-35.0 [facility] Comment on above: Performed By: #### L ESTD ####Testing performed at [facility], [id number] [place], [place] [address] [facility] [address] MCHC (RBC) [Mass/Vol] 33.5 g/dL Normal 27.0-37.0 [facility] Comment on above: Performed By: #### L ESTD ####Testing performed at [facility], [id number] [facility] [place] [address] MCV (RBC) [Entitic vol] 92.7 fL Normal 80.0-100.0 [facility] Comment on above: Performed By: #### L ESTD ####Testing performed at [facility], [id number] [facility] [place] [address] Platelet mean volume (Bld) [Entitic vol] 7.6 fL Normal 7.4-11.0 [facility] Comment on above: Performed By: #### L ESTD ####Testing performed at [facility], [id number] [facility] [place] [address] Platelets (Bld) [#/Vol] 301 10*3/uL Normal 130-400 [facility] Comment on above: Performed By: #### L ESTD ####Testing performed at [facility], [address] [place] [address] RBC (Bld) [#/Vol] 5.74 10*6/uL High 4.0-5.4 [facility] Comment on above: Performed By: #### L ESTD ####Testing performed at [facility], [id number] [place] [address] WBC (Bld) [#/Vol] 7.5 10*3/uL Normal 3.6-11.0 [facility] Comment on above: Performed By: #### L ESTD ####Testing performed at [facility], [id number] [facility] [place] [address] CMP FASTINGon 04-18-2023 A:G RATIO 1.6 RATIO Normal 1.3-2.2 [facility] Comment on above: Performed By: #### L ESTD ####Testing performed at [facility], [id number] [facility] [place] [address] ALBUMIN 4.7 G/dl Normal 3.5-5.0 [facility] Comment on above: Performed By: #### L ESTD ####Testing performed at [facility], [address] [place] [address] ALP [Catalytic activity/Vol] 56 U/L Normal 38-126 [facility] Comment on above: Performed By: #### L ESTD ####Testing performed at [facility], [address] [place] [address] ALT [Catalytic activity/Vol] 45 U/L High <35 [facility] Comment on above: Performed By: #### L ESTD ####Testing performed at [facility], [address] [place] [address] AST [Catalytic activity/Vol] 42 U/L High 14-36 [facility] Comment on above: Performed By: #### L ESTD ####Testing performed at [address] [place] [address] Bilirubin [Mass/Vol] 0.9 mg/dL Normal 0.2-1.3 [facility] Comment on above: Performed By: #### L ESTD ####Testing performed at [address] [place] [address] Calcium [Mass/Vol] 9.3 mg/dL Normal 8.4-10.2 [facility] Comment on above: Performed By: #### L ESTD ####Testing performed at [address] [place] [address] Chloride [Moles/Vol] 104 mmol/L Normal 98-107 [facility] Comment on above: Result Comment: Plea note: Triglyceride levels of 600mg/dL or higher may positively bias chloride results by approximately 2.1 mmol Performed By: #### L ESTD ####Testing performed at [facility], [address] [place] [address] CO2 [Moles/Vol] 25 mmol/L Normal 22-30 [facility] Comment on above: Performed By: #### L ESTD ####Testing performed at [facility], [id number] [place] [address] Creatinine [Mass/Vol] 0.90 mg/dL Normal 0.7-1.2 [facility] Comment on above: Performed By: #### L ESTD ####Testing performed at [facility], [id number] [place] [address] EST. GFR, 93 ml/min/1.73sq.m [facility] Comment on above: Performed By: #### L ESTD ####Testing performed at [facility], [id number] [place] [address] EST. GFR,Non 77 ml/min/1.73sq.m [facility] Comment on above: Performed By: #### L ESTD ####[facility], [id number] [facility] [place] [address] GFR Information Average GFR for 30-3 9 years old = 107. Normal [facility] Comment on above: Result Comment: Garbage Collector Driver brenton Kidney disease, GFR = <60. Kidney failure, GFR = <15. The GFR estimate is not adjusted for extreme body surface area or acute process, nor has it been validated for women or ethnic groups other than and . Performed By: #### L ESTD ####[facility], [id number] [place] [address] Glucose [Mass/Vol] 86 mg/dL Normal 70-100 [facility] Comment on above: Result Comment: NORMAL <100 mg/dL PREDIABETES 101-126 mg/dL DIABETES 126 mg/dL or higher Performed By: #### L ESTD ####[facility], [id number] [facility] [place] [facility] [address] Potassium [Moles/Vol] 4.5 mmol/L Normal 3.5-5.1 [facility] Comment on above: Performed By: #### L ESTD ####[facility], [id number] [facility] [place] [address] Protein [Mass/Vol] 7.7 g/dL Normal 6.3-8.2 [facility] Comment on above: Performed By: #### L ESTD ####Testing performed at [address] [address] Sodium [Moles/Vol] 139 mmol/L Normal 137-145 [facility] Comment on above: Performed By: #### L ESTD ####Testing performed at [address] [place] [address] Urea nitrogen [Mass/Vol] 16 mg/dL Normal 7-20 [facility] Comment on above: Performed By: #### L ESTD ####Testing performed at [address] [address] FAX REQUESTon 04-18-2023 FAX TO [phone] [facility] Comment on above: Performed By: #### L ESTD #### Testing performed at [address] [address] TESTOSTERONEon 04-18-2023 Testosterone [Mass/Vol] 338.0 ng/dL High 5.7-77.0 [facility] Comment on above: Result Comment: REFE RENCE RANGE FOR FEMALES WITH NORMAL MENSTURAL CYCLES Performed By: #### L ESTD ####Testing performed at [address] [place] [address] INSULIN, FASTINGon 3 INSULIN, FASTING 80.2 [facility] Comment on above: Result Comment: Refe rence range: 2.6 to 24.9 Unit: uIU/mL PERFORMED AT [facility] Performed By: #### L INS, LTHYR #### Testing performed at [address] [address] THYROID PANEL W/TSHon 2022 FREE THYROXINE INDEX 1.9 Normal [facility] Comment on above: Result Comment: Refe rence range: 1.2 to 4.9 PERFORMED AT [facility] Performed By: #### L INS, LTHYR #### Testing performed at [address] [place] [address] [place] [address] T3 UPTAKE 29 Normal [facility] Comment on above: Result Comment: Refe rence range: 24 to 39 Unit: % Performed By: #### L INS LTHYR #### Testing performed at [address] [place] [address] [place] [address] T4 [Mass/Vol] 6.7 ug/dL Normal [facility] Comment on above: Result Comment: Refe rence range: 4.5 to 12.0 Unit: ug/dL Performed By: #### L INS LTHYR #### Testing performed [address] [facility] [address] TSH Qn 2.770 m[IU]/L [facility] Comment on above: Result Comment: Refe rence range: 0.450 to 4.500 Unit: uIU/mL Performed By: #### L INS LTHYR #### Testing performed at [address] [place] [address] [place] [address] CBCon 11-22-2022 ABSOLUTE BAS 0.0 10*3/uL Normal 0.0-0.2 [facility] Comment on above: Performed By: #### L INS, LTHYR #### Testing performed at [address] [place] [place] [address] [place] [address] ABSOLUTE EOS 0.2 10*3/uL Normal 0.0-0.7 [facility] Comment on above: Performed By: #### L INS, LTHYR #### Testing performed at [address] [place] [address] [place] [address] ABSOLUTE NEUTROPHIL COUNT 5.3 10*3/uL Normal 1.4-6.5 [facility] Comment on above: Performed By: #### L INS, LTHYR #### Testing performed at [address] [address] Basophils/100 WBC (Bld) 0.5 % Normal 0.0-2.0 [facility] Comment on above: Performed By: #### L INS, LTHYR #### Testing performed at [address] [place] [address] [place] [address] DTYPE AUTO DIFF Normal [facility] Comment on above: Performed By: #### L INS, LTHYR #### Testing performed at [address] [address] [place] [address] Eosinophils/100 WBC (Bld) 3.0 % Normal 0.0-11.0 [facility] Comment on above: Performed By: #### L INS, LTHYR #### Testing performed at [address] [place] [address] Lymphocytes (Bld) [#/Vol] 2.0 10*3/uL Normal 1.2-3.4 [facility] Comment on above: Performed By: #### L INS, LTHYR #### Testing performed at [address] [facility] [place] [address] Lymphocytes/100 WBC (Bld) 25.2 % Normal 20.0-55.0 [facility] Comment on above: Performed By: #### L INS, LTHYR #### Testing performed at [address] [facility] [place] [address] Monocytes (Bld) [#/Vol] 0.5 10*3/uL Normal 0.0-0.7 [facility] Comment on above: Performed By: #### L INS, LTHYR #### Testing performed at [address] [place] [address] [place] [address] Monocytes/100 WBC (Bld) 6.0 % Normal 0.0-10.0 [facility] Comment on above: Performed By: #### L INS, LTHYR #### Testing performed at [address] [place] [address] [place] [address] Neutrophils/100 WBC (Bld) 65.3 % Normal 37.0-75.0 [facility] Comment on above: Performed By: #### L INS, LTHYR #### Testing performed at [address] [address] Erythrocyte distribution width (RBC) [Ratio] 14.6 % High 11.5-14.5 [facility] Comment on above: Performed By: #### L INS LTHYR #### Testing performed at [address] [address] Hematocrit (Bld) [Volume fraction] 52.1 % High 36.0-48.0 [facility] Comment on above: Performed By: #### L INS LTHYR #### Testing performed at [address] [address] Hemoglobin (Bld) [Mass/Vol] 17.7 g/dL High 12.0-16.0 [facility] Comment on above: Performed By: #### L INS, LTHYR #### Testing performed at [address] [address] MCH (RBC) [Entitic mass] 31.5 pg Normal 26.0-35.0 [facility] Comment on above: Performed By: #### L INS LTHYR #### Testing performed at [address] [address] MCHC (RBC) [Mass/Vol] 34.0 g/dL Normal 27.0-37.0 [facility] Comment on above: Performed By: #### L INS LTHYR #### Testing performed at [address] [address] MCV (RBC) [Entitic vol] 92.7 fL Normal 80.0-100.0 [facility] Comment on above: Performed By: #### L INS LTHYR #### Testing performed at [address] [address] Platelet mean volume (Bld) [Entitic vol] 8.3 fL Normal 7.4-11.0 [facility] Comment on above: Performed By: #### L INS LTHYR #### Testing performed at [address] [address] Platelets (Bld) [#/Vol] 289 10*3/uL Normal 130-400 [facility] Comment on above: Performed By: #### L INS, LTHYR #### Testing performed at [address] [address] RBC (Bld) [#/Vol] 5.63 10*6/uL High 4.0-5.4 [facility] Comment on above: Performed By: #### L INS, LTHYR #### Testing performed at [address] [address] WBC (Bld) [#/Vol] 8.1 10*3/uL Normal 3.6-11.0 [facility] Comment on above: Performed By: #### L INS, LTHYR #### Testing performed at [address] [address] CMP FASTINGon 11-22-2022 A:G RATIO 1.5 RATIO Normal 1.3-2.2 [facility] Comment on above: Performed By: #### L INS, LTHYR #### Testing performed at [address] [address] ALBUMIN 4.4 G/dl Normal 3.5-5.0 [facility] Comment on above: Performed By: #### L INS, LTHYR #### Testing performed at [address] [address] ALP [Catalytic activity/Vol] 47 U/L Normal 38-126 [facility] Comment on above: Performed By: #### L INS, LTHYR #### Testing performed at [address] [address] ALT [Catalytic activity/Vol] 32 U/L Normal <35 [facility] Comment on above: Performed By: #### L INS, LTHYR #### Testing performed at [address] [place] [address] AST [Catalytic activity/Vol] 31 U/L Normal 14-36 [facility] Comment on above: Performed By: #### L INS LTHYR #### Testing performed at [address] [place] [address] [place] [address] Bilirubin [Mass/Vol] 0.5 mg/dL Normal 0.2-1.3 [facility] Comment on above: Performed By: #### L INS LTHYR #### Testing performed at [address] [place] [address] [place] [address] Calcium [Mass/Vol] 9.3 mg/dL Normal 8.4-10.2 [facility] Comment on above: Performed By: #### L INS LTHYR #### Testing performed at [address] [place] [address] Chloride [Moles/Vol] 104 mmol/L Normal 98-107 [facility] Comment on above: Result Comment: Eliud reyez note: Triglyceride levels of 600mg/dL or higher may positively bias chloride results by approximately 2.1 mmol Performed By: #### L INS LTHYR #### Testing performed at [address] [address] CO2 [Moles/Vol] 28 mmol/L Normal 22-30 [facility] Comment on above: Performed By: #### L INS LTHYR #### Testing performed at [address] [address] Creatinine [Mass/Vol] 0.90 mg/dL Normal 0.7-1.2 [facility] Comment on above: Performed By: #### L INS LTHYR #### Testing performed at [address] [facility] [address] EST. GFR, 93 ml/min/1.73sq.m Normal [facility] Comment on above: Performed By: #### L INS LTHYR #### Testing performed [address] [address] EST. GFR,Non 77 ml/min/1.73sq.m Normal [facility] Comment on above: Performed By: #### L INS LTHYR #### Testing performed at [address] [address] GFR Information Average GFR for 30-3 9 years old = 107. Normal [facility] Comment on above: Result Comment: Garbage Collector Driver brenton Kidney disease, GFR = <60. Kidney failure, GFR = <15. The GFR estimate is not adjusted for extreme body surface area or acute process, nor has it been validated for women or ethnic groups other than and . Performed By: #### L INS LTHYR #### Testing performed at [address] [address] Glucose [Mass/Vol] 83 mg/dL Normal 70-100 [facility] Comment on above: Result Comment: NORMAL <100 mg/dL PREDIABETES 101-126 mg/dL DIABETES 126 mg/dL or higher Performed By: #### L INS, LTHYR #### Testing performed at [address] [address] Potassium [Moles/Vol] 3.9 mmol/L Normal 3.5-5.1 [facility] Comment on above: Performed By: #### L INS, LTHYR #### Testing performed at [address] [address] Protein [Mass/Vol] 7.3 g/dL Normal 6.3-8.2 [facility] Comment on above: Performed By: #### L INS, LTHYR #### Testing performed at [address] [address] Sodium [Moles/Vol] 138 mmol/L Normal 137-145 [facility] Comment on above: Performed By: #### L INS, LTHYR #### Testing performed at [address] [address] Urea nitrogen [Mass/Vol] 12 mg/dL Normal 7-20 [facility] Comment on above: Performed By: #### L INS, LTHYR #### Testing performed at [address] [place] [address] FAX REQUESTon 11-22-2022 FAX TO [phone] [facility] FAX TO [phone] [facility] Comment on above: Performed By: #### L INS, LTHYR #### Testing performed at [address] [address] HEMOGLOBIN A1Con 11-22-2022 Glucose [Mass/Vol] 105 mg/dL Normal [facility] HbA1c (Bld) [Mass fraction] 5.3 % Normal 0-6 [facility] Comment on above: Result Comment: NORMAL <5.7% PREDIABETES 5.7-6.4% DIABETES 6.5% OR HIGHER IRONon 11-22-2022 Iron [Mass/Vol] 91 ug/dL Normal 37-170 [facility] Comment on above: Performed By: #### L INS, LTHYR #### Testing performed at [address] [address] LIPID PROFILEon 11-22-2022 Cholesterol [Mass/Vol] 176 mg/dL Normal 107-217 [facility] Comment on above: Performed By: #### L INS, LTHYR #### Testing performed at [address] [address] Cholesterol in HDL [Mass/Vol] 19 mg/dL Low 33-75 [facility] Comment on above: Performed By: #### L INS, LTHYR #### Testing performed at [address] [address] Cholesterol in LDL [Mass/Vol] 55 mg/dL Normal [facility] Comment on above: Performed By: #### L INS, LTHYR #### Testing performed at [address] [place] [address] Cholesterol in VLDL [Mass/Vol] 102 mg/dL High 5.0-25 [facility] Comment on above: Performed By: #### L INS, LTHYR #### Testing performed at [address] [place] [address] Cholesterol.total/Chol esterol in HDL [Mass ratio] 9.26 {ratio} Normal [facility] Comment on above: Result Comment: RISK TOTAL/HDL RATIO MEN WOMEN 1/2 AVERAGE 3.43 3.27 AVERAGE 4.97 4.44 2X AVERAGE 9.55 7.05 3X AVERAGE 23.99 11.04 Performed By: #### L INS, LTHYR #### Testing performed at [address] [place] [address] Triglyceride [Mass/Vol] 509 mg/dL High 0-150 [facility] Comment on above: Performed By: #### L INS, LTHYR #### Testing performed at [address] [address] [address] Lumbar spine W contrast I [place] [...] findings. 3. 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 [facility] CT Lumbar spine W contrast I VOrdered By: Vin Raymond on 08-28-2021 [facility] Work Phone: CT SPINE LUMBAR WITH CONTRAS [...] 3. 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 Normal [facility] CT Lumbar spine W contrast I Von 08-24-2021 Radiology Study observation (narrative) [facility] GENERAL PROCEDUREon 08-25-19 Radiology Study observation (narrative) [facility] No Panel InformationOrdered By: Vin Raymond on 08-24-2021 [facility] Work Phone: RF Guidance for injection of [...] FINDINGS: The examination was performed by KINGA Escboar. Fluoro time: 1.0 minutes Consent: The risks [...] I have reviewed and approved this report. [facility] Radiology Study observation (narrative) [facility] XR FLUORO MYELOGRAM LUMBAR O NLYon 08-24-2021 [...] have reviewed and approved this report. Normal [facility] MRI SPINE LUMBAR WITH AND WI THOUT [...] and right L5 neural foraminal narrowing. Normal [facility] XR SPINE LUMBOSACRAL 5 VIEWS on 06-26-2021 [...] spinal instability with flexion or extension Normal [facility] XR Spine Lumbar and Sacrum 5 Viewson [...] No spinal instability with flexion or extension [facility] Radiology Study observation (narrative) [facility] XR Spine Lumbar and Sacrum 5 ViewsOrdered By: Anna Heaton on 06-26-2021 [facility] Work Phone: XR CHEST PA AND LATERALon XR CHEST PA AND LATERAL CLINICAL HISTORY: Fever and cough. COMPARISON: None. FINDINGS: PA and lateral views of the chest obtained. Cardiomediastinal silhouette is normal. Lungs are clear, no evidence of infiltrate or pleural effusion. No suspicious nodule or mass. No evidence of pneumothorax. No acute bony abnormality. IMPRESSION: No acute abnormality. Normal [facility] NOVEL CORONAVIRUSon 02-29-20 21 NARRATIVE This test was performed using isothermal ZAIRA and has been approved as Emergency Use Authorization (EUA) for the qualitative detection [id number] nucleic acid. Normal [facility] Comment on above: Performed By: #### C OVID #### Testing performed at [address] [address] SARS-CoV-2 (COVID-19) RNA ZAIRA+probe Ql (Unsp spec) Not detected Normal NOT DETECTED [facility] Comment on above: Result Comment: Nega tive [...] #### C OVID #### Testing performed at [address] [place] [address] COVID-19 PCRon 01-28-2020 SARS-CoV-2 (COVID-19) RNA ZAIRA+probe Ql (Unsp spec) Not detected Normal Not Detected [facility] Comment on above: Result Comment: This nucleic acid amplification test was developed and its performance characteristics determined by [employer]. Nucleic acid amplification tests include PCR and [...] assay. Performed By: #### C VDPCR #### [facility] [address] [place] [address] Juan Francisco Saldana BASIC METABOLIC PANELon 09-07 Anion gap [Moles/Vol] 14 mmol/L [facility] Calcium [Mass/Vol] 9.8 mg/dL [facility] Chloride [Moles/Vol] 99 mmol/L [facility] Comment on above: Please note: Triglyc eride levels of 600mg/dL or higher may positively bias chloride results by approximately 2.1 mmol CO2 [Moles/Vol] 27 mmol/L [facility] Creatinine [Mass/Vol] 0.79 mg/dL [facility] GFR/1.73 sq M predicted among blacks MDRD (S/P/Bld) [Vol rate/Area] mL/min/{1.73_m2} ml/min/1.73sq .m [facility] GFR/1.73 sq M predicted among non-blacks MDRD (S/P/Bld) [Vol rate/Area] mL/min/{1.73_m2} ml/min/1.73sq .m [facility] GFR/1.73 sq M predicted among non-blacks MDRD (S/P/Bld) [Vol rate/Area] Average GFR for 20-29 years old = 116. [facility] Comment on above: Chronic Kidney disea se, GFR = <60. Kidney failure, GFR = <15. The GFR estimate is not adjusted for extreme body surface area or acute process, nor has it been validated for women or ethnic groups other than and . Glucose post fast [Mass/Vol] 92 mg/dL [facility] Comment on above: NORMAL <100 mg/dL PREDIABETES 101-126 mg/dL DIABETES 126 mg/dL or higher Potassium [Moles/Vol] 3.8 mmol/L [facility] Sodium [Moles/Vol] 140 mmol/L [facility] Urea nitrogen [Mass/Vol] 10 mg/dL [facility] BETA HCG, QUAL, BLOODon 09-07 HCG ( test) Ql Negative [facility] CBC, EDIF, PLATELETon 2018 ABSOLUTE BASOPHIL COUNT 0.1 X10 [facility] Basophils/100 WBC (Bld) 0.7 % 0 - 2 % [facility] Differential cell count method Nom (Bld) AUTO DIFF % [facility] Eosinophils (Bld) [#/Vol] 0.10 10*3/uL X10 [facility] Eosinophils/100 WBC (Bld) 1.5 % 0 - 11 % [facility] Erythrocyte distribution width (RBC) [Ratio] 15.9 % High 11.5 - 14.5 % [facility] Hematocrit (Bld) [Volume fraction] 44.6 % 36 - 48 % [facility] Hemoglobin (Bld) [Mass/Vol] 15.4 g/dL [facility] Interpretation and review of laboratory results Abnormal [facility] Lymphocytes (Bld) [#/Vol] 1.20 10*3/uL X10 [facility] Lymphocytes/100 WBC (Bld) 13.4 % Low 20 - 55 % [facility] MCH (RBC) [Entitic mass] 29.7 pg 26 - 35 PG [facility] MCHC (RBC) [Mass/Vol] 34.5 g/dL [facility] MCV (RBC) [Entitic vol] 86.3 fL [facility] Monocytes (Bld) [#/Vol] 0.6 10*3/uL X10 [facility] Monocytes/100 WBC (Bld) 6.7 % 0 - 10 % [facility] Neutrophils (Bld) [#/Vol] 7.2 10*3/uL High [facility] Neutrophils/100 WBC (Bld) 77.7 % High 37 - 75 % [facility] Platelet mean volume (Bld) [Entitic vol] 7.9 fL [facility] Platelets (Bld) [#/Vol] 338 10*3/uL [facility] RBC (Bld) [#/Vol] 5.17 10*6/uL [facility] WBC (Bld) [#/Vol] 9.2 10*3/uL [facility] CBC, EDIF, PLATELETon 2018 ABSOLUTE BASOPHIL COUNT 0.1 X10 [facility] Basophils/100 WBC (Bld) 0.9 % 0 - 2 % [facility] Differential cell count method Nom (Bld) AUTO DIFF % [facility] Eosinophils #/vol (Bld) 0.20 10*3/uL [...] 22.5 % 20 - 55 % [facility] MCH Entitic mass (RBC) 29.4 pg 26 - 35 PG [facility] MCHC mass conc (RBC) 33.5 g/dL [facility] MCV Entitic volume (RBC) 87.[address] [facility] Monocytes #/vol (Bld) 0.5 10*3/uL X10 [facility] Monocytes/100 WBC (Bld) 6.7 % 0 - 10 % [facility] Neutrophils #/vol (Bld) 5.4 10*3/uL [facility] Neutrophils/100 WBC (Bld) 67.5 % 37 - 75 % [facility] Platelet mean volume Entitic volume (Bld) 8.1 fL [facility] Platelets #/vol (Bld) 383 10*3/uL [facility] RBC #/vol (Bld) 5.24 10*6/uL [facility] WBC #/vol (Bld) 8.0 10*3/uL [facility] COMPREHENSIVE METABOLIC PANE Gregory 07-02-2018 Albumin mass conc 5.1 G/dl High 3.5 - 5 G/dl [facility] Albumin/Globulin mass ratio 1.6 {ratio} [facility] ALP enzyme act/vol 63 U/L [facility] ALT enzyme act/vol 46 U/L [facility] AST enzyme act/vol 41 U/L High [facility] Bilirubin mass conc 0.3 mg/dL [facility] Calcium mass conc 9.8 mg/dL [facility] Chloride molar conc 103 mmol/L [facility] Comment on above: Please note: Triglyc eride levels of 600mg/dL or higher may positively bias chloride results by approximately 2.1 mmol CO2 molar conc 26 mmol/L [facility] TH Creatinine mass conc 0.85 mg/dL [facility] GFR/1.73 sq M predicted among blacks MDRD vol rate/area (S/P/Bld) mL/min/{1.73_m2} ml/min/1.73sq .m [facility] GFR/1.73 sq M predicted among non-blacks MDRD vol rate/area (S/P/Bld) mL/min/{1.73_m2} ml/min/1.73sq .m [facility] GFR/1.73 sq M predicted among non-blacks MDRD vol rate/area (S/P/Bld) Average GFR for 20-29 years old = 116. [facility] Comment on above: Chronic Kidney disea se, GFR = <60. Kidney failure, GFR = <15. The GFR estimate is not adjusted for extreme body surface area or acute process, nor has it been validated for women or ethnic groups other than and . Glucose fasting mass conc 114 mg/dL High [facility] Comment on above: NORMAL <100 mg/dL PREDIABETES 101-126 mg/dL DIABETES 126 mg/dL or higher Interpretation and review of laboratory results Abnormal [facility] Potassium molar conc 3.5 mmol/L [facility] Protein mass conc 8.3 g/dL [facility] Sodium molar conc 142 mmol/L [facility] Urea nitrogen mass conc 11 mg/dL [facility] D-DIMER,QUANTITATIVEon 07-02 Fibrin D-dimer FEU mass conc (PPP) 0.33 [facility] LIPASEon 07-02-2018 Lipase enzyme act/vol 55 U/L 23 - 300 U/L [facility] TROPONINon 07-02-2018 Troponin I.cardiac mass conc ng/mL 0 - 0.08 ng/mL [facility] KNEE RIGHT 1 OR 2 Son 02-07 KNEE RIGHT 1 OR 2 VWS [facility] Department of Radiology [address] [place] [id number] Patient Name: MAMADOU BERRY : 1990 [...] effusion Electronically signed by:Ha Harvey. Transcribed by: [email or web address], User Resident: Electronically Signed by: HA HARVEY @ 02/17/2018 03:54 PM Normal [facility] Comment on above: Order Comment: , Aidae ws (X-RAY, KNEE): AP, Lateral , Weight Bearing?: N , Views (X-RAY, KNEE): AP, Lateral , Weight Bearing?: N , , , Ordering Provider - HA RAYMOND MD , Operative Reporton 8 Operative Report MR#: [id number] [facility] Pt. Name: Mamadou Berry Room #: 0C Discharge 02/06/2018 Date: Birthdate: 1990 OPERATIVE REPORT DATE OF SURGERY: 02/06/2018 SURGEON: Ha Raymond M.D. 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 This would be in form of right [...] meniscus. We then utilized a 4.5 mm [place] Reamer followed by a 10 mm Jewelry Estimator to make a tunnel. Curette was utilized [...] thigh. We then reamed with 4.5 mm [place] Reamer full thickness and then a low-profile [...] knee hyperflexed, we placed a malleted a transferrer followed by guidewire in an 8 x [...] right lower extremity. She will be given [place] for pain control and aspirin for DVT prophylaxis. I will see her back in the clinic in 5 days for a wound check and initiation of physical therapy. Electronically Signed by: Ha Raymond M.D. 02/16/2018 10:43 A Ha Raymond M.D. Date Dict: 02/06/2018/01:17 P/Ha Raymond M.D. Date Trans: 02/07/2018 12:12 Giovana/aliyah [id number] cc: Fatemeh Palencia M.D. [address], [facility] [address] [place] [facility] KNEE RIGHT [address] [facility] 01-10 KNEE RIGHT 1 OR 2 S [facility] Department of Radiology [address] [place] [phone] Patient Name: MAMADOU BERRY : 1990 [...] Documentation Electronically signed by:Ha Harvey. Transcribed by: [email or web address], User Resident: Electronically Signed by: HA HARVEY @ 02/06/2018 01:22 PM Normal [facility] Comment on above: Order Comment: right knee scope POC GLUCOSE LABon 02-06-2018 Glucose mass conc 100 mg/dL Normal 70-100 [facility] Comment on above: Performed By: #### 8 [id number] #### [address] LOWER EXTREMITY WO CONTRA ST RIGHTon 12-19-2017 CT LOWER EXTREMITY WO CONTRAST RIGHT [facility] Department of Radiology [address] [place] [address] Patient Name: MAMADOU BERRY : 1990 Sex: F Age: Race: NA Pt. Location: 84 Patient Status: D Ordered Date: 12/08/2017 5:00:00 PM Completed Date: 12/19/2017 05:53 PM Requesting Provider: HA RAYMOND Attending Provider: HA RAYMOND Report Copy To: SELF, REFERRED Signs & Symptoms: M25.569 Pain in unspecified knee I10 History: [place] phone [phone] Needs F/U with ortho [employer] [place] REQ [id number] REF [id number] Comments: ACL tunnel osteolysis Exam: CT LOWER [...] bodies. Electronically signed by:Ha Harvey. Transcribed by: [email or web address], User Resident: Electronically Signed by: HA HARVEY @ 12/21/2017 11:35 AM Normal [facility] Comment on above: Order Comment: ACL t unnel osteolysis LOWER EXTREMITY JOINT SURVEY on 12-08-2017 LOWER EXTREMITY JOINT SURVEY [facility] Department of Radiology [address] [place] [phone] Patient Name: MAMADOU BERRY : 1990 Sex: F Age: Race: NA Pt. Location: 84 Patient Status: O Ordered Date: 12/08/2017 4:15:00 PM Completed Date: 12/08/2017 04:13 PM Requesting Provider: HA RAYMOND Attending Provider: HA RAYMOND Report Copy To: Signs & Symptoms: M25.569 Pain in unspecified knee I10 History: [place] Comments: , , , Ordering Provider - [...] result Electronically signed by:Ha Harvey. Transcribed by: [email or web address], User Resident: Electronically Signed by: HA HARVEY @ 12/08/2017 04:39 PM Normal [facility] Comment on above: Order Comment: , , = ========= , Ordering Provider - HA RAYMOND MD , Vital Signs Date Time Vital Sign Value Performing Clinician [place] pate 10-30-2023 10:03-0400 Diastolic blood pressure 91 mm[Hg] Dayron Foskey DO Work Phone: [facility] [employer] 10-30-2023 10:03-0400 Heart rate 85 /min Dayron Foskey DO Work Phone: [employer] [facility] [employer] 10-30-2023 10:03-0400 Respiratory rate 14 /min Dayron Foskey DO Work Phone: [facility] [employer] 10-30-2023 10:03-0400 SaO2% (BldA) [Mass fraction] 98 % Dayron Foskey DO Work Phone: [facility] [employer] 10-30-2023 10:03-0400 Systolic blood pressure 168 mm[Hg] Dayron Foskey DO Work Phone: [facility] 10-30-2023 09:44-0400 Body temperature 98.2 [degF] Dayron Tinsley DO Work Phone: [facility] 09-05-2021 11:08-0400 Body height 175.3 cm Margaret Boo MD Work Phone: [facility] 09-05-2021 11:08-0400 Body mass index (BMI) [Ratio] 42.83 kg/m2 Margaret Boo MD Work Phone: [facility] 09-05-2021 11:08-0400 Body temperature 97.11 [degF] Margaret Boo MD Work Phone: [facility] 09-05-2021 11:08-0400 Body weight 131.54 kg Margaret Boo MD Work Phone: [facility] 09-05-2021 11:08-0400 Heart rate 81 /min Margaret Boo MD Work Phone: [facility] 09-05-2021 11:08-0400 SaO2% (BldA) [Mass fraction] 97 % Margaret Boo MD Work Phone: [facility] 08-24-2021 15:16-0400 Diastolic blood pressure 80 mm[Hg] Margaret Boo MD Work Phone: [facility] 08-24-2021 15:16-0400 Heart rate 73 /min Margaret Boo MD Work Phone: [facility] 08-24-2021 15:16-0400 Respiratory rate 14 /min Margaret Boo MD Work Phone: [facility] 08-24-2021 15:16-0400 SaO2% (BldA) [Mass fraction] 98 % Margaret Boo MD Work Phone: [facility] 08-24-2021 15:16-0400 Systolic blood pressure 127 mm[Hg] Margaret Boo MD Work Phone: [facility] 08-24-2021 14:48-0400 Body temperature 98.4 [degF] Margaret Boo MD Work Phone: [facility] 08-24-2021 14:48-0400 Diastolic blood pressure 58 mm[Hg] Margaret Boo MD Work Phone: [facility] 08-24-2021 14:48-0400 Heart rate 66 /min Margaret Boo MD Work Phone: [facility] 08-24-2021 14:48-0400 Respiratory rate 16 /min Margaret Boo MD Work Phone: [facility] 08-24-2021 14:48-0400 SaO2% (BldA) [Mass fraction] 97 % Margaret Boo MD Work Phone: [facility] 08-24-2021 14:48-0400 Systolic blood pressure 123 mm[Hg] Margaret Boo MD Work Phone: [facility] 08-24-2021 14:00-0400 Diastolic blood pressure 73 mm[Hg] Jeyson Medina MD Work Phone: [facility] 08-24-2021 14:00-0400 Respiratory rate 17 /min Jeyson Medina MD Work Phone: [facility] 08-24-2021 14:00-0400 SaO2% (BldA) [Mass fraction] 95 % Jeyson Medina MD Work Phone: [facility] 08-24-2021 14:00-0400 Systolic blood pressure 140 mm[Hg] Jeyson Medina MD Work Phone: [facility] 08-08-2021 11:04-0400 Body height 175.3 cm Margaret Boo MD Work Phone: [facility] 08-08-2021 11:04-0400 Body mass index (BMI) [Ratio] 42.83 kg/m2 Margaret Boo MD Work Phone: [facility] 08-08-2021 11:04-0400 Body temperature 97 [degF] Margaret Boo MD Work Phone: [facility] 08-08-2021 11:04-0400 Body weight 131.54 kg Margaret Boo MD Work Phone: [facility] 08-08-2021 11:04-0400 Heart rate 107 /min Margaret Boo MD Work Phone: [facility] 08-08-2021 11:04-0400 SaO2% (BldA) [Mass fraction] 97 % Margaret Boo MD Work Phone: [facility] 07-13-2021 16:23-0400 Body height 175.3 cm Faith BROCK-C Work Phone: [facility] 07-13-2021 16:23-0400 Body mass index (BMI) [Ratio] 41.35 kg/m2 Faith BROCK-C Work Phone: [facility] 07-13-2021 16:23-0400 Body weight 127.01 kg Faith BROCK-C Work Phone: [facility] 07-13-2021 16:23-0400 Diastolic blood pressure 103 mm[Hg] Faith BROCK-C Work Phone: [facility] 07-13-2021 16:23-0400 Heart rate 105 /min Faith Fela PA-C Work Phone: [facility] 07-13-2021 16:23-0400 Systolic blood pressure 145 mm[Hg] Faith Davis PA-C Work Phone: [facility] 06-26-2021 10:17-0400 Body height 175.3 cm Faith Davis PA-C Work Phone: [facility] 06-26-2021 10:17-0400 Body mass index (BMI) [Ratio] 39.72 kg/m2 Faith Davis PA-C Work Phone: [facility] 06-26-2021 10:17-0400 Body temperature 97.11 [degF] Faith Davis PA-C Work Phone: [facility] 06-26-2021 10:17-0400 Body weight 122.02 kg Faith Davis PA-C Work Phone: [facility] 06-26-2021 10:17-0400 Heart rate 96 /min Faith Davis PA-C Work Phone: [facility] 06-26-2021 10:17-0400 SaO2% (BldA) [Mass fraction] 100 % Faith Davis PA-C Work Phone: [facility] 10-10-2018 14:090400 Height 175.3 cm [facility] 10-10-2018 14:08-0400 Body Temperature 98.01 [degF] [facility] 10-10-2018 14:08-0400 BP Diastolic 99 mm[Hg] [facility] 10-10-2018 14:08-0400 BP Systolic 151 mm[Hg] [facility] 10-10-2018 14:08-0400 Pulse (Heart Rate) 83 /min [facility] 10-10-2018 14:08-0400 Pulse Oximetry 99 % [facility] 10-10-2018 14:08-0400 Respiratory Rate 20 /[facility] 09-[facility]-2018 01:02-0400 BP Diastolic 70 mm[Hg] [facility] 09-24-2018 01:02-0400 BP Systolic 159 mm[Hg] [facility] 09-24-2018 01:02-0400 Pulse (Heart Rate) 102 /min [facility] 09-24-2018 01:02-0400 Pulse Oximetry 98 % [facility] 09-24-2018 01:02-0400 Respiratory Rate 18 /min [facility] 09-23-2018 23:10-0400 Height 175.3 cm [facility] 09-23-2018 23:09-0400 Body Temperature 98.29 [degF] [facility] 09-22-2018 20:09-0400 Height 175.3 cm [facility] 09-22-2018 20:08-0400 Body Temperature 97.7 [degF] [facility] 09-22-2018 20:08-0400 BP Diastolic 90 mm[Hg] [facility] 09-22-2018 20:08-0400 BP Systolic 166 mm[Hg] [facility] 09-22-2018 20:08-0400 Pulse (Heart Rate) 106 /min [facility] 09-22-2018 20:08-0400 Pulse Oximetry 94 % [facility] 09-22-2018 20:08-0400 Respiratory Rate 18 /min [facility] 07-02-2018 19:00-0400 BP Diastolic 86 mm[Hg] [facility] 07-02-2018 19:00-0400 BP Systolic 171 mm[Hg] [facility] 07-02-2018 19:00-0400 Pulse (Heart Rate) 110 /min [facility] 07-02-2018 19:00-0400 Pulse Oximetry 93 % [facility] 07-02-2018 19:00-0400 Respiratory Rate 25 /min [facility] 07-02-2018 16:40-0400 Height 177.8 cm [facility] Encounters Encounter Date Encounter Type Care Provider Facility Start: 10-30-2023 End: 10-30-2023 Emergency department patient visit [facility]ins[facility] Start: 07-03-2023 End: 07-03-2023 Emergency department patient visit RAMONA SHEN [facility] Start: 04-18-2023 ambulatory FATEMEH M Paul [facility] Start: 11-22-2022 ambulatory FATEMEH M Paul [facility] Start: 09-05-2021 ambulatory SAFDAKen BOO Facility: [facility] Start: 09-05-2021 End: 09-05-2021 Office outpatient visit 15 minutes Margaret Boo MD Work Phone: [facility] Comment on above: Numbness and tinglin [...] MD Work Phone: [facility] Comment on above: Numbness and tinglin g of both feet (Primary Dx); Lumbar radiculopathy Start: 07-25-2021 ambulatory FATEMEH M HOY Facility: [facility] Start: 07-13-2021 ambulatory FATEMEH M HOY Facility: [facility] Start: 07-13-2021 End: 07-13-2021 Subsequent hospital visit by physician Faith Davis PA-C Work Phone: [facility] Comment on above: Arrived Start: 06-26-2021 [...] 01-10-2020 End: 01-10-2020 ambulatory FATEMEH ANTHONY DO Facility:[facility] Start: 10-10-2018 End: 10-10-2018 Emergency department patient visit Dany Montes Work Phone: [facility] Start: 09-23-2018 End: 09-24-2018 Emergency department patient visit Delon Gutierrez Work Phone: [facility] Start: 09-22-2018 End: 09-22-2018 Emergency department patient visit Dayron Tinsley Work Phone: [facility] Start: 07-02-2018 End: 07-02-2018 Emergency department patient visit Kalen Oseguera Work Phone: [facility] Start: 02-17-2018 End: 02-18-2018 Patient encounter procedure HA RAYMOND Facility:[facility] Start: 02-06-2018 End: 02-07-2018 Patient encounter procedure DAYRON RAYMOND Facility:[facility] Start: 01-02-2018 End: 01-03-2018 Patient encounter procedure HA RAYMOND Facility:[facility] Start: 12-19-2017 End: 12-20-2017 Patient encounter procedure HA RAYMOND Facility:[facility] Start: 12-08-2017 End: 12-09-2017 Patient encounter procedure HA RAYMOND Facility:[facility] Start: 12-02-2017 End: 12-03-2017 Patient encounter procedure DEFAULT PHYSICIAN Facility:[facility] Procedures Date Procedure Procedure Detail Performing [...] 11-09-2023 Influenza vaccination INFLUENZA VACC INE (#1) [facility] Start: 11-08-2022 COVID-19 VACCINE ( season) COVID-19 VACCINE ( season) [facility] Start: 11-08-2021 Influenza vaccination INFLUENZ A VACCINE (Season Ended) [facility] Start: 09-05-2021 End: 09-05-2021 Patient encounter procedure 09/05/2021 Office Visit Multispecialty Margaret Boo MD [address] [place] [address] [facility] Start: 08-24-2021 End: 08-24-2021 Patient encounter procedure Ambulatory Surgery Unit Start: 08-08-2021 End: 08-08-2022 CT Lumbar spine WO contrast CT SPINE LUMBAR WITHOUT CONTRAST Imaging Routine Numbness and tingling of both feet Lumbar radiculopathy Expected: 08/08/2021, Expires: 08/08/2022 [facility] Comment on above: Expected: 08/08/2021 , Expires: 08/08/2022 Start: 08-08-2021 End: 08-08-2022 RF Guidance for injection of Lumbar spine XR FLUORO MYELOGRAM LUMBAR ONLY Imaging Routine Numbness and tingling of both feet Lumbar radiculopathy Expected: 08/08/2021, Expires: 08/08/2022 [facility] Comment on above: Expected: 08/08/2021 , Expires: 08/08/2022 Start: 07-25-2021 End: 07-25-2021 Patient encounter procedure 07/25/2021 Office Visit Multispecialty Margaret Boo MD [address] [place] [address] [facility] Start: 07-13-2021 End: 07-13-2021 Patient encounter procedure 07/13/2021 Appointment Magnetic Resonance Imaging Faith Davis PA-C [address] [place] [address] [facility] Start: 06-26-2021 End: 06-26-2022 MR Lumbar spine WO and W contrast IV MRI SPINE LUMBAR WITH AND WITHOUT CONTRAST Imaging Routine Lumbar radiculopathy Acute bilateral low back pain with bilateral sciatica Expected: 06/26/2021, Expires: 06/26/2022 [facility] Comment on above: Expected: 06/26/2021 , Expires: 06/26/2022 Start: 11-08-2018 Influenza vaccination [facility] Start: 2011 Screening for malignant neoplasm of cervix [facility] Start: 2009 Third diphtheria, tetanus and acellular pertussis (DTaP) vaccination TDAP (ADULT) [facility] Start: 2008 Tetanus vaccination TETANUS [facility] Start: 2005 HIV screening HIV SCREENING DISCUSSI ON [facility] Start: 2003 HIV screening HIV SCREENING DISCUSSI ON [facility] Start: 1995 COVID-19 VACCINE (#1) COVID-19 VACCI NE (#1) [facility] Start: 1995 COVID-19 VACCINE (1) COVID-19 VACCIN E (1) [facility] Start: 1990 COVID-19 VACCINE (#1) COVID-19 VACCI NE (#1) [facility] Start: 1990 Tetanus vaccination TETANUS [facility] CT of abdomen and pelvis CT ABDOMEN/PELVIS WITHOUT CONTRAST Imaging STAT 07/02/2018 5:49 PM EDT [facility] End: 07-13-2021 MR Lumbar spine WO and W contrast IV [facility] Comment on above: 1 Occurrences starti ng 07/13/2021 until 07/13/2021 End: 07-02-2018 Standard ECG ECG ECG STAT One Time for 1 Occurrences starting 07/02/2018 until 07/02/2018 [facility] Comment on above: One Time for 1 Occur rences starting 07/02/2018 until 07/02/2018 End: 09-23-2018 Standard ECG ECG ECG STAT One Time for 1 Occurrences starting 09/23/2018 until 09/23/2018 Nixon AdLemons Comment on above: One Time for 1 Occur rences starting 09/23/2018 until 09/23/2018 Immunizations Immunization Date Immunization Notes Care Provider Vivi morse 02-25-2020 influenza virus vaccine, unspecified formulation Faith Davis PA-C Work Phone: [facility] 01-20-2017 influenza virus vaccine, unspecified formulation Delon Gutierrez [facility] Payers Date Payer Category Payer Unknown [id number] 2022 Unknown [id number] 2021 Unknown [id number] 2021 Unknown 2021 Unknown [id number] 2018 Private Health Insurance AET[employer] A ETNA GENERIC xxxxxxxxxx 2018-Present xxxxxxxxxx [id number]. 2.7.3.360901.315 2014 Unknown [id number] Private Health Insurance [id number] 1990 Unknown [id number] 2.16.840.1.108351.3.579. 2.647 1990 Unknown [id number] 2.16.840.1.071947.3.579. 2.647 1990 Unknown [id number] 2.16.840.1.230339.3.579. 2.647 1990 Unknown [id number] 2.16.840.1.417558.3.579. 2.647 1990 Unknown [id number] 2.16.840.1.234243.3.579. 2.647 1990 Unknown [id number] 2.16.840.1.424287.3.579. 2.647 1990 Unknown [id number] 2.16.840.1.822991.3.579. 2.419 1990 Unknown [id number] 2.16.840.1.747668.3.579. 2.593 1990 Unknown [id number] 2.16.840.1.718542.3.579. 2.593 1990 Unknown [id number] 2.16.840.1.047093.3.579. 2.593 1990 Unknown [id number] 2.16.840.1.211650.3.579. 2.593 1990 Unknown [id number] 2.16.840.1.513007.3.579. 2.594 1990 Unknown [id number] 2.16.840.1.186184.3.579. 2.594 1990 Unknown [id number] 2.16.840.1.764109.3.579. 2.594 1990 Unknown [id number] 2.16.840.1.713771.3.579. 2.594 1990 Unknown [id number] 2.16.840.1.738832.3.579. 2.594 1990 Unknown [id number] 2.16.840.1.639220.3.579. 2.594 1990 Unknown [id number] 2.16.840.1.784464.3.579. 2.594 1990 Unknown [id number] 2.16.840.1.334380.3.579. 2.173 1990 Unknown [id number] 2.16.840.1.417001.3.579. 2.983 1990 Unknown [id number] 2.16.840.1.140355.3.579. 2.983 1990 Unknown [id number] 2.16.840.1.170820.3.579. 2.983 1959 Private Health Insurance [id number] 1959 Self-pay [id number] 1959 Unknown [id number] 1959 Worker's Compensation [id number] Social History Date Type Detail Facility Start: 07-02-2018 End: 10-10-2018 Tobacco smoking status [facility] Never smoker [facility] Start: 07-02-2018 Alcohol Comment socially [facility] Start: 1990 Sex Assigned At Not on file [facility] Start: 07-02-2018 Tobacco use and exposure Smokeless tobacco non-user [facility] Start: 06-26-2021 End: 10-30-2023 Alcohol intake Current drinker of alcohol (finding) [facility] Start: 06-08-2021 End: 06-18-2021 Exposure to SARS-CoV-2 (event) Not sure [facility] Start: 06-26-2020 End: 09-05-2021 History of Social function [facility] Start: 06-26-2020 End: 09-05-2021 Tobacco use panel [facility] Adolescent depressio n screening assessment 2 [facility] Start: 05-17-2019 Gender identity Identifies as male gender (finding) [facility] Medical Equipment Procedure Code Equipment Code Equipment Origin al Text Equipment Identifier Dates fluorescein ophthalmic strip 0.6 mg [id number] Start: 10-10-2018 End: 10-10-2018 Clinical Notes 06-26-2021 to 10-30-2023 Radha Parikh RN - 10/30/2023 10:30 AM EDJose Luis Parikh RN - 10/30/2023 10:30 AM EDMira Tinsley DO - 10/30/2023 9:43 AM EDTDischarge InstructionsAttachmentsDischarge Instructions Note Date & Type Note Facility 10-30-[address] Tinsley at [facility]. Discharge instructions regviewed in detail, verbally voices understanding. N/c voiced, aware to call PCP for follow-up. And take AM BP med. [facility] 10-30-[address] Tinsley at [facility]. Discharge instructions regviewed in detail, verbally [...] Laterality: Left; Surgeon: Margaret Boo MD; Location: [facility] MAIN OR KNEE SURGERY Right x5 Allergies: [...] DO 10/30/23 1029 documented in this encounter [facility] 10-30-2023 Hospital Discharg e instructions Dayron [...] You may find a provider through the [employer] Physician Referral Service by calling [phone] or by visiting [email or web address] Thank You for choosing the [facility] Emergency Department! The following attachments cannot be sent through Care Everywhere.Uvulitis (Icelandic)documented in this encounter [facility] 10-30-2023 Physician Emergency department Note Emergency Department Report [facility] EMERGENCY MEDICINE Service Date:.10/30/23 PCP: Fatemeh Palencia [...] Laterality: Left; Surgeon: Margaret Boo MD; Location: [facility] MAIN OR DISCECTOMY POSTERIOR LUMBAR Left 03/30/2019 Laterality: Left; Surgeon: Margaret Boo MD; Location: [facility] MAIN OR KNEE SURGERY Right x5 Allergies: [...] above information. Dayron Tinsley DO 10/30/23 1029 [facility] 09-05-2021 History of Presen t illness [...] with the patient and family. The total qkdr-bf-prgk time spent on this visit was greater than 30 minutes, with the majority (>50%) of the time spent in counseling, discussing pathology and management options, and coordination of care. Margaret Boo MD documented in this encounter [facility] 08-24-2021 History of Presen t illness Narrative [...] per MD order. documented in this encounter [facility] 08-24-2021 Hospital Discharg e instructions Lizz Bean [...] Radiology at documented in this encounter [facility] 08-24-2021 History of Presen t illness Narrative Patient Information: Inpatient/Outpatient:Outpatient Weight: 290lb Code Status: Full Code IV: No Mental Health Orderly: Klarissa Santiago Radiology waiting area CT orders [...] Following CT documented in this encounter [facility] 08-08-2021 History of Presen t [...] with the patient and family. The total tjiu-nt-bfml time spent on this visit was greater than 30 minutes, with the majority (>50%) of the time spent in counseling, discussing pathology and management options, and coordination of care. Margaret Boo MD documented in this encounter [facility] 06-26-2021 History of Presen t illness Narrative [...] to sleep. 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 He is ambulatory without the use of [...] after MRI documented in this encounter [facility] Evaluation note Diagnosis Low back pain, unspecified back pain laterality, unspecified chronicity, unspecified whether sciatica present- Primary Lumbar radiculopathy Thoracic or lumbosacral neuritis or radiculitis, unspecified Acute bilateral low back pain with bilateral sciatica S/P lumbar microdiscectomy Other postprocedural status Low back pain, unspecified back pain laterality, unspecified chronicity, unspecified whether sciatica present [facility] Diagnosis Low back pain, unspecified back pain laterality, unspecified chronicity, unspecified whether sciatica present [facility] Lumbar radiculopathy Thoracic or lumbosacral neuritis or radiculitis, unspecified Acute bilateral low back pain with bilateral sciatica [facility] Diagnosis Numbness and tingling of both feet- Primary Lumbar radiculopathy Thoracic or lumbosacral neuritis or radiculitis, unspecified [facility] Diagnosis Numbness and tingling of both feet Lumbar radiculopathy Thoracic or lumbosacral neuritis or radiculitis, unspecified [facility] Diagnosis Numbness and tingling of both feet Lumbar radiculopathy Thoracic or lumbosacral neuritis or radiculitis, unspecified [facility] Diagnosis Numbness and tingling of both feet- Primary [facility] Diagnosis Uvulitis- Primary Cellulitis and abscess of oral soft tissues [facility] Consultation (Routine) - New Request Specialty Diagnoses / Procedures Referred By Osito galicia Referred To Contact Neurology Diagnoses Numbness and tingling of both feet Margaret Boo MD [address] [place] [address] Referral ID Status Reason Start Date Expiration Date V isits Requested Visits Authorized [id number] New Request 09/05/2021 09/30/2022 1 1 [facility] Summary Purpose Family History No Family History [...] Procedures ECG Kalen Oseguera MD [address] [place] [address] Status Reason Specialty Diagnoses / Procedures Referred By Contact Referred To Contact New Request Procedures Delon Perez MD [address] [place] [address] Specialty Diagnoses / Procedures Referred By Contac t Referred To Contact Physical Therapy Diagnoses Low back pain, unspecified back pain laterality, unspecified chronicity, unspecified whether sciatica present Lumbar radiculopathy Acute bilateral low back pain with bilateral sciatica Faith Davis, TAWANNAC [address] [place] [address] Referral ID Status Reason Start Date Expiration Date V isits Requested Visits Authorized [id number] New Request 06/26/2021 07/21/2022 1 1 Scheduling Instructions [facility] [address] [facility] 2[address] [place] [address] Fax [facility] (Neck and Back Therapy) [address] [place] [phone] FAX [facility] [address] [address] FAX Outpatient [facility] [place] [address] [id number] FAX [facility] [address] [place] [address] FAX Physical Therapy at [address] [address] FAX [facility] [address] [address] FAX [facility] [address] [place], [place] [address] FAX Specialty Diagnoses / Procedures Referred By Contac t Referred To Contact Diagnoses Lumbar radiculopathy Acute bilateral low back pain with bilateral sciatica Procedures MRI SPINE LUMBAR WITH AND WITHOUT CONTRAST DC MRI, LUMBAR SPINE LENO Faith Davis PA-C [address] [place] [address] Referral ID Status Reason Start Date Expiration Date V isits Requested Visits Authorized [id number] New Request 06/26/2021 07/21/2022 1 1 Referral ID Status Reason Start Date Expiration Date V isits Requested Visits Authorized [id number] Pending Review 06/26/2021 07/21/2022 1 1 Specialty Diagnoses / Procedures Referred By Contac t Referred To Contact Diagnoses Numbness and tingling of both feet Lumbar radiculopathy Procedures XR FLUORO MYELOGRAM LUMBAR ONLY Margaret Boo MD [address] [place] [address] Referral ID Status Reason Start Date Expiration Date V isits Requested Visits Authorized [id number] New Request 08/08/2021 09/02/2022 1 1 Specialty Diagnoses / Procedures Referred By Contac t Referred To Contact Diagnoses Numbness and tingling of both feet Lumbar radiculopathy Procedures CT SPINE LUMBAR WITHOUT CONTRAST DC CT SCAN,LUMBAR SPINE,W/O CONTRAST Margaret Boo MD [address] [place] [address] Referral ID Status Reason Start Date Expiration Date V isits Requested Visits Authorized [id number] Pending Review 08/08/2021 09/02/2022 1 1 Specialty Diagnoses / Procedures Referred By Contac t Referred To Contact Diagnoses Numbness and tingling of both feet Lumbar radiculopathy Procedures CT SPINE LUMBAR WITH CONTRAST CT SPINE LUMBAR WITHOUT CONTRAST DC CT SCAN,LUMBAR SPINE,W/O CONTRAST DC CT SCAN LUMBAR SP CONTRAST Vin Humphrey MD [address] [address] [place] [address] Referral ID Status Reason Start Date Expiration Date Visits Re quested Visits Authorized [id number] Closed 08/08/2021 09/02/2022 1 Referral ID Status Reason Start Date Expiration Date V isits Requested Visits Authorized [id number] Pending Review 08/08/2021 09/02/2022 1 1 Discharge Instructions * Attachments The following attachments cannot be sent through Care Everywhere. * Abdominal Pain, Adult (Icelandic) documented in this encounter* Instructions* Dayron Tinsley, [...] You may find a provider through the [employer] Physician Referral Service by calling [phone] or by visiting [email or web address] [email or web address] Thank You for choosing the [facility] Emergency Department! * Attachments The following attachments cannot be sent through Care Everywhere. * Tooth and Gum Pain (Icelandic) documented in this encounter* Attachments The following attachments cannot be sent through Care Everywhere. * Nausea and Vomiting (Icelandic) documented in this encounter* Attachments The following attachments cannot be sent through Care Everywhere. * Conjunctivitis (Icelandic) documented in this encounter Assessments Diagnosis LUQ pain- Primary Abdominal pain, left upper quadrant Anxiety Anxiety state, unspecified Diagnosis Pain, dental- Primary Unspecified disorder of the teeth and supporting structures Diagnosis Non-intractable vomiting with nausea, unspecified vomiting type- Primary Diagnosis Conjunctivitis of right eye, unspecified conjunctivitis type- Primary Additional Source Comments INFORMATION SOURCE (unrecogn ized section and content) DATE CREATED AUTHOR 04/04/2018 [facility] DATE CREATED AUTHOR AUTHOR'S ORGANIZ ATION 01/19/2021 [facility] DATE CREATED AUTHOR AUTHOR'S ORGANIZ ATION 01/21/2021 [facility] DATE CREATED AUTHOR AUTHOR'S ORGANIZ ATION 03/21/2021 [facility] DATE CREATED AUTHOR AUTHOR'S ORGANIZ ATION 09/06/2021 [facility] DATE CREATED AUTHOR AUTHOR'S ORGANIZ ATION 07/05/2023 [facility] DATE CREATED AUTHOR AUTHOR'S ORGANIZ ATION 11/08/2023 [facility] Reason for Visit (unrecogniz ed [...] MRI SPINE LUMBAR WITH AND WITHOUT CONTRAST DC MRI, LUMBAR SPINE COMBO Faith Davis, CARSON [address] [place] [address] Referral ID Status Reason Start Date Expiration Date V isits Requested Visits Authorized [id number] Pending Review 06/26/2021 07/21/2022 1 1 Reason Comments Follow-up Specialty Diagnoses / Procedures Referred By Osito galicia Referred To Contact Diagnoses Numbness and tingling of both feet Lumbar radiculopathy Procedures CT SPINE LUMBAR WITH CONTRAST CT SPINE LUMBAR WITHOUT CONTRAST DC CT SCAN,LUMBAR SPINE,W/O CONTRAST DC CT SCAN LUMBAR SP CONTRAST Vin Humphrey MD [address] [facility] [address] [place] [address] Referral ID Status Reason Start Date Expiration Date Visits Re quested Visits Authorized [id number] Closed 08/08/2021 09/02/2022 1 1 Specialty Diagnoses / Procedures Referred By Contac t Referred To Contact Diagnoses Numbness and tingling of both feet Lumbar radiculopathy Procedures XR FLUORO MYELOGRAM LUMBAR ONLY Margaret Boo MD [address] [place] [address] Referral ID Status Reason Start Date Expiration Date V isits Requested Visits Authorized [id number] Pending Review 08/08/2021 09/02/2022 1 1 Reason Comments Follow-up Reason Comments Dysphagia Patient reports vomi ting approximately 0615 AM with swollen uvula, voice change, and dysphagia since. Patient denies difficulty breathing and changes to medications. (unrecognized sect ion and content) No Status Records FoundNo Status Records Found Care Teams (unrecognized sec tion and content) Fish Inspector Relationship Specialty Start Date End Date Fatemeh Palencia MD [address] [place] [address] PCP - General Family Medicine 07/02/18 Fish Inspector Relationship Specialty Start Date End Date Fatemeh Palencia MD [address] [place] [address] PCP - General Family Medicine 07/02/18 Fish Inspector Relationship Specialty Start Date End Date Fatemeh Palencia MD [address] [place] [address] PCP - General Family Medicine 07/02/18 Fish Inspector Relationship Specialty Start Date End Date Fatemeh Palencia MD [address] [place] [address] PCP - General Family Medicine 07/02/18 Fish Inspector Relationship Specialty Start [place] [address] [place] [phone] PCP - General Family Medicine 07/02/18 Fish Inspector Relationship Specialty Start [place] [address] [place] [phone] PCP - General Family Medicine 07/02/18 Fish Inspector Relationship Specialty Start [place] [address] [place] [phone] PCP - General Family Medicine 07/02/18 Fish Inspector Relationship Specialty Start [place] [address] [place] [phone] PCP - General Family Medicine 07/02/18 Fish Inspector Relationship Specialty Start Date End Date Fatemeh Palencia MD [address] [place] [phone] PCP - General Family Medicine 07/02/18 Scheduled [...] BE BASED ON THE PRIMARY CLINICAL RECORDS. [employer] [facility]. provides no warranty or guarantee of the accuracy or completeness of information in this document.
[2024-03-05 12:59] LABS: Alanine Aminotransferase 33 U/L (16-63); Albumin Globulin Ratio 1.1; Albumin Level 3.8 g/dL (3.4-5.0); Alkaline Phosphatase 63 U/L (46-116); Anion Gap 8.8; Aspartate Amino Transferase 18 U/L (15-37); BUN Creatinine Ratio 9.9; Bilirubin Total 0.4 mg/dL (0.2-1.0); Carbon Dioxide 30.4 mmol/L (21.0-32.0); Chloride 105 mmol/L (98-107); Estimated GFR (African America >60 (>=60 mL/min/1.73m^2); Estimated GFR (Non-African Ame >60 (>=60 mL/min/1.73m^2); Globulin 3.5 g/dL; Glucose 82 mg/dL (74-106); Potassium 4.2 mmol/L (3.5-5.1); Sodium 140 mmol/L (136-145); Total Protein 7.3 g/dL (6.4-8.2)
[2024-03-06 17:06] LABS: Free Testosterone(Direct) 20.5 pg/mL (8.7-25.1); Testosterone 697 ng/dL (264-916)
== END 2024-03-05 12:22 | disposition home or self-care (01) ==
PROVIDERS: PCP Family Medicine; Visit Provider Family Medicine
DX: D58.2 Other hemoglobinopathies (principal); D64.9 Anemia, unspecified
CPT/HCPCS: 36415; 80053; 82728; 83540; 84402; 84403; 85025

== ENCOUNTER 2024-05-04 07:35 | Outpatient (RCR) | payer BC, SELFPAY ==
[2024-05-04 13:44] LABS: Basophils Absolute Auto 0.1 10^3/uL (0.0-0.1); Basophils Percent Auto 0.8 % (0.2-2.0); Eosinophils Absolute Auto 0.2 10^3/uL (0.0-0.7); Eosinophils Percent Auto 2.4 % (0.9-7.0); Hematocrit 51.2 % (42.0-54.0); Hemoglobin 17.2 g/dL (14.0-18.0); Immature Granulocytes Abs Auto 0.07 10^3/uL (0.00-0.03); Immature Granulocytes Pct Auto 0.8 % (0.0-0.5); Lymphocytes Absolute Auto 2.2 10^3/uL (1.2-3.8); Lymphocytes Percent Auto 25.9 % (20.5-60.0); Mean Corpuscular HGB Conc 33.6 g/dL (29.9-35.2); Mean Corpuscular Hemoglobin 30.4 pg (25.9-34.0); Mean Corpuscular Volume 90.6 fL (80.0-94.0); Mean Platelet Volume 9.8 fL (9.5-13.5); Monocytes Absolute Auto 0.7 10^3/uL (0.3-0.8); Monocytes Percent Auto 8.3 % (1.7-12.0); Neutrophils Absolute Auto 5.3 10^3/uL (1.4-6.5); Neutrophils Percent Auto 61.8 % (43.0-75.0); Platelet Count 345 10^3/uL (150-450); Red Blood Count 5.65 10^6/uL (4.70-6.10); White Blood Count 8.6 10^3/uL (4.0-11.0)
[2024-05-05 15:09] LABS: Erythropoietin (EPO), Serum 27.8 mIU/mL (2.6-18.5)
== END 2024-05-05 08:30 | disposition home or self-care (01) ==
LOC: HEMC 07:35
PROVIDERS: PCP Family Medicine; Visit Provider Internal Medicine Hematology & Oncology
DX: D45 Polycythemia vera (principal)
CPT/HCPCS: 36415; 82668; 82728; 83540; 83550; 85025; G0463

== ENCOUNTER 2024-06-16 20:50 | Outpatient (OUT) | payer BC, SELFPAY ==
--- OUTSIDE RECORDS SUMMARY | 2024-06-16 20:53 | XMS_ITS | CCD ---
Author Organization [facility] Care Team Providers Care Social Director Name Role Phone DAYRON RAYMOND Admitting Unavailable DAYRON RAYMOND Attending Unavailable FATEMEH PALENCIA Referring Unavailable FATEMEH PALENCIA Primary Care Unavailable MA Procedure Practitioner Unavailab DAYRON Lozada Surgeon Unavailable MA Procedure Practitioner Unavailab VIJAY Joiner Surgeon Unavailable [...] Attending Unavailable FATEMEH ANTHONY DO Consulting Unavailable WLIL PALENCIA Consulting Unavailable DR FATEMEH PALENCIA Primary [...] Unavailable Fatemeh Palencia MD Primary Care Provider FATEMEH PALENCIA Primary Care Unavailable MARGARET BOO [...] Fatemeh Palencia MD M Primary Care Provider [phone] HOY, FATEMEH M Primary Care Unavailable DAVID [...] Propensity to adverse reactions (disorder) 5 [facility] Repository (2 sources) lamoTRIgine Drug Allergy 9 [facility] Repository (8 sources) lamoTRIgine Drug Allergy 0 [facility] (1 source) Lamotrigine Propensity to adverse reactions to drug 0 [facility] Medications Current Medications Medication Drug [...] Active Start: 04-16-2019 take [facility] daily propranolol 120 MG Cap [...] Anesthetic Start: 09-22-2018 End: 09-22-2018 lidocaine-epineph rine 1%-1:100597 injection 20 mL 2 ml famotidine 10 [...] Range Facility ESTRADIOLon 04-19-2023 ESTRADIOL 71.9 Normal [facility] Comment on above: Result Comment: Unit : pg/mL (NOTE) Adult Female Range Follicular phase 12.5 - 166.0 Ovulation phase 85.8 - 498.0 Luteal phase 43.8 - 211.0 Postmenopausal <6.0 - 54.7 1st trimester 215.0 - >4300.0 Yan ECLIA [facility] Performed By: #### L ESTD ####Testing performed at [facility] [place] [id number] CBCon 04-18-2023 ABSOLUTE BAS 0.1 10*3/uL Normal 0.0-0.[address] [facility] Comment on above: Performed By: #### L ESTD ####Testing performed at [facility], [address] [place] [address] ABSOLUTE EOS 0.2 10*3/uL Normal 0.0-0.[address] [facility] Comment on above: Performed By: #### L ESTD ####Testing performed at [facility], [address] [place] [address] ABSOLUTE NEUTROPHIL COUNT 4.6 10*3/uL Normal 1.4-6.5 [facility] Comment on above: Performed By: #### L ESTD ####Testing performed at [facility], [address] [place] [address] Basophils/100 WBC (Bld) 1.0 % Normal 0.0-2.0 [facility] Comment on above: Performed By: #### L ESTD ####Testing performed at [facility], [address] [place] [address] DTYPE AUTO DIFF Normal [facility] Comment on above: Performed By: #### L ESTD ####Testing performed at [facility], [address] [place] [address] Eosinophils/100 WBC (Bld) 2.3 % Normal 0.0-11.0 [facility] Comment on above: Performed By: #### L ESTD ####Testing performed at [facility], [address] [place] [address] Lymphocytes (Bld) [#/Vol] 2.1 10*3/uL Normal 1.2-3.4 [facility] Comment on above: Performed By: #### L ESTD ####Testing performed at [facility], [address] [place] [address] Lymphocytes/100 WBC (Bld) 28.0 % Normal 20.0-55.0 [facility] Comment on above: Performed By: #### L ESTD ####Testing performed at [facility], [address] [place] [address] Monocytes (Bld) [#/Vol] 0.5 10*3/uL Normal 0.0-0.7 [facility] Comment on above: Performed By: #### L ESTD ####Testing performed at [facility], [id number] [place] [address] Monocytes/100 WBC (Bld) 6.9 % Normal 0.0-10.0 [facility] Comment on above: Performed By: #### L ESTD ####Testing performed at [facility], [address] [place] [address] Neutrophils/100 WBC (Bld) 61.8 % Normal 37.0-75.0 [facility] Comment on above: Performed By: #### L ESTD ####Testing performed at [facility], [address] [place] [address] Erythrocyte distribution width (RBC) [Ratio] 14.7 % High 11.5-14.5 [facility] Comment on above: Performed By: #### L ESTD ####Testing performed at [facility], [id number] [place] [address] Hematocrit (Bld) [Volume fraction] 53.2 % High 36.0-48.0 [facility] Comment on above: Performed By: #### L ESTD ####Testing performed at [facility], [address] [place] [address] Hemoglobin (Bld) [Mass/Vol] 17.8 g/dL High 12.0-16.0 [facility] Comment on above: Performed By: #### L ESTD ####Testing performed at [facility], [id number] [place] [address] MCH (RBC) [Entitic mass] 31.1 pg Normal 26.0-35.0 [facility] Comment on above: Performed By: #### L ESTD ####Testing performed at [facility], [address] [place], [place] [address]e [facility] [place] [address] MCHC (RBC) [Mass/Vol] 33.5 g/dL Normal 27.0-37.0 [facility] Comment on above: Performed By: #### L ESTD ####Testing performed at [facility], [id number] [facility] [place] [address] MCV (RBC) [Entitic vol] 92.7 fL Normal 80.0-100.0 [facility] Comment on above: Performed By: #### L ESTD ####Testing performed at [facility], [id number] [facility] [place] [address] Platelet mean volume (Bld) [Entitic vol] 7.6 fL Normal 7.4-11.0 [facility] Comment on above: Performed By: #### L ESTD ####Testing performed at [facility], [id number] [facility] [place] [address] Platelets (Bld) [#/Vol] 301 10*3/uL Normal 130-400 [facility] Comment on above: Performed By: #### L ESTD ####Testing performed at [facility], [address] [place] [address] RBC (Bld) [#/Vol] 5.74 10*6/uL High 4.0-5.4 [facility] Comment on above: Performed By: #### L ESTD ####Testing performed at [facility], [id number] [place] [address] WBC (Bld) [#/Vol] 7.5 10*3/uL Normal 3.6-11.0 [facility] Comment on above: Performed By: #### L ESTD ####Testing performed at [facility], [id number] [facility] [place] [address] CMP FASTINGon 04-18-2023 A:G RATIO 1.6 RATIO Normal 1.3-2.2 [facility] Comment on above: Performed By: #### L ESTD ####Testing performed at [facility], [id number] [facility] [place] [address] ALBUMIN 4.7 G/dl Normal 3.5-5.0 [facility] Comment on above: Performed By: #### L ESTD ####Testing performed at [facility], [address] [facility] [address] ALP [Catalytic activity/Vol] 56 U/L Normal 38-126 [facility] Comment on above: Performed By: #### L ESTD ####Testing performed at [facility], [address] [facility] [address] ALT [Catalytic activity/Vol] 45 U/L High <35 [facility] Comment on above: Performed By: #### L ESTD ####Testing performed at [facility], [address] [facility] [address] AST [Catalytic activity/Vol] 42 U/L High 14-36 [facility] Comment on above: Performed By: #### L ESTD ####Testing performed at [address] [place] [address] Bilirubin [Mass/Vol] 0.9 mg/dL Normal 0.2-1.3 [facility] Comment on above: Performed By: #### L ESTD ####Testing performed at [address] [place] [address] Calcium [Mass/Vol] 9.3 mg/dL Normal 8.4-10.2 [facility] Comment on above: Performed By: #### L ESTD ####Testing performed at [address] [place] [address] Chloride [Moles/Vol] 104 mmol/L Normal 98-107 [facility] Comment on above: Result Comment: Plea note: Triglyceride levels of 600mg/dL or higher may positively bias chloride results by approximately 2.1 mmol Performed By: #### L ESTD ####Testing performed at [facility], [address] [facility] [address] CO2 [Moles/Vol] 25 mmol/L Normal 22-30 [facility] Comment on above: Performed By: #### L ESTD ####Testing performed at [facility], [id number] [place] [address] Creatinine [Mass/Vol] 0.90 mg/dL Normal 0.7-1.2 [facility] Comment on above: Performed By: #### L ESTD ####Testing performed at [facility], [id number] [place] [address] EST. GFR, 93 ml/min/1.73sq.m [facility] Comment on above: Performed By: #### L ESTD ####Testing performed at [facility], [address] [place] [address] EST. GFR,Non 77 ml/min/1.73sq.m [facility] Comment on above: Performed By: #### L ESTD ####[facility], [id number] [facility] [place] [address] GFR Information Average GFR for 30-3 9 years old = 107. Normal [facility] Comment on above: Result Comment: [employer] brenton Kidney disease, GFR = <60. Kidney failure, GFR = <15. The GFR estimate is not adjusted for extreme body surface area or acute process, nor has it been validated for women or ethnic groups other than and . Performed By: #### L ESTD ####[facility], [id number] [place] [address] Glucose [Mass/Vol] 86 mg/dL Normal 70-100 [facility] Comment on above: Result Comment: NORMAL <100 mg/dL PREDIABETES 101-126 mg/dL DIABETES 126 mg/dL or higher Performed By: #### L ESTD ####[facility], [id number] [facility] [place] [address] Potassium [Moles/Vol] 4.5 mmol/L Normal 3.5-5.1 [facility] Comment on above: Performed By: #### L ESTD ####[facility], [id number] [facility] [place] [address] Protein [Mass/Vol] 7.7 g/dL Normal 6.3-8.2 [facility] Comment on above: Performed By: #### L ESTD ####Testing performed at [address] [address] Sodium [Moles/Vol] 139 mmol/L Normal 137-145 [facility] Comment on above: Performed By: #### L ESTD ####Testing performed at [address] [place] [address] Urea nitrogen [Mass/Vol] 16 mg/dL Normal 7-20 [facility] Comment on above: Performed By: #### L ESTD ####Testing performed at [address] [address] FAX REQUESTon 04-18-2023 FAX TO [phone] [facility] Comment on above: Performed By: #### L ESTD #### Testing performed at [address] [address] TESTOSTERONEon 04-18-2023 Testosterone [Mass/Vol] 338.0 ng/dL High 5.7-77.0 [facility] Comment on above: Result Comment: REFE RENCE RANGE FOR FEMALES WITH NORMAL MENSTURAL CYCLES Performed By: #### L ESTD ####Testing performed at [address] [place] [address] INSULIN, FASTINGon 3 INSULIN, FASTING 80.2 [facility] Comment on above: Result Comment: Refe rence range: 2.6 to 24.9 Unit: uIU/mL PERFORMED AT [facility] Performed By: #### L INS, LTHYR #### Testing performed at [address] [address] THYROID PANEL W/TSHon 2022 FREE THYROXINE INDEX 1.9 Normal [facility] Comment on above: Result Comment: Refe rence range: 1.2 to 4.9 PERFORMED AT [facility] Performed By: #### L INS, LTHYR #### Testing performed at [address] [place] [address] [place] [address] T3 UPTAKE 29 Normal [facility] Comment on above: Result Comment: Refe rence range: 24 to 39 Unit: % Performed By: #### L INS LTHYR #### Testing performed at [address] [place] [address] [place] [address] T4 [Mass/Vol] 6.7 ug/dL Normal [facility] Comment on above: Result Comment: Refe rence range: 4.5 to 12.0 Unit: ug/dL Performed By: #### L INS LTHYR #### Testing performed at [address] [facility] [place] [address] TSH Qn 2.770 m[IU]/L [facility] Comment on above: Result Comment: Refe rence range: 0.450 to 4.500 Unit: uIU/mL Performed By: #### L INS LTHYR #### Testing performed at [address] [place] [address] [place] [address] CBCon 11-22-2022 ABSOLUTE BAS 0.0 10*3/uL Normal 0.0-0.[address] [facility] Comment on above: Performed By: #### L INS, LTHYR #### Testing performed at [address] [place] [address] [place] [address] ABSOLUTE EOS 0.2 10*3/uL Normal 0.0-0.[address] [facility] Comment on above: Performed By: #### L INS, LTHYR #### Testing performed at [address] [place] [address] [place] [address] ABSOLUTE NEUTROPHIL COUNT 5.3 10*3/uL Normal 1.4-6.5 [facility] Comment on above: Performed By: #### L INS, LTHYR #### Testing performed at [address] [place] [address] [place] [address] Basophils/100 WBC (Bld) 0.5 % Normal 0.0-2.0 [facility] Comment on above: Performed By: #### L INS, LTHYR #### Testing performed at [address] [place] [address] [place] [address] DTYPE AUTO DIFF Normal [facility] Comment on above: Performed By: #### L INS, LTHYR #### Testing performed at [address] [place] [address] [place] [address] Eosinophils/100 WBC (Bld) 3.0 % Normal 0.0-11.0 [facility] Comment on above: Performed By: #### L INS, LTHYR #### Testing performed at [address] [place] [address] Lymphocytes (Bld) [#/Vol] 2.0 10*3/uL Normal 1.2-3.4 [facility] Comment on above: Performed By: #### L INS, LTHYR #### Testing performed at [address] [facility] [place] [address] Lymphocytes/100 WBC (Bld) 25.2 % Normal 20.0-55.0 [facility] Comment on above: Performed By: #### L INS, LTHYR #### Testing performed [address] [facility] [place] [address] Monocytes (Bld) [#/Vol] 0.5 10*3/uL Normal 0.0-0.7 [facility] Comment on above: Performed By: #### L INS, LTHYR #### Testing performed at [address] [place] [address] [place] [address] Monocytes/100 WBC (Bld) 6.0 % Normal 0.0-10.0 [facility] Comment on above: Performed By: #### L INS, LTHYR #### Testing performed at [address] [place] [address] [place] [address] Neutrophils/100 WBC (Bld) 65.3 % Normal 37.0-75.0 [facility] Comment on above: Performed By: #### L INS, LTHYR #### Testing performed at [address] [address] Erythrocyte distribution width (RBC) [Ratio] 14.6 % High 11.5-14.5 [facility] Comment on above: Performed By: #### L INS LTHYR #### Testing performed at [address] [address] Hematocrit (Bld) [Volume fraction] 52.1 % High 36.0-48.0 [facility] Comment on above: Performed By: #### L INS LTHYR #### Testing performed at [address] [address] Hemoglobin (Bld) [Mass/Vol] 17.7 g/dL High 12.0-16.0 [facility] Comment on above: Performed By: #### L INS, LTHYR #### Testing performed at [address] [address] MCH (RBC) [Entitic mass] 31.5 pg Normal 26.0-35.0 [facility] Comment on above: Performed By: #### L INS LTHYR #### Testing performed at [address] [address] MCHC (RBC) [Mass/Vol] 34.0 g/dL Normal 27.0-37.0 [facility] Comment on above: Performed By: #### L INS LTHYR #### Testing performed at [address] [address] MCV (RBC) [Entitic vol] 92.7 fL Normal 80.0-100.0 [facility] Comment on above: Performed By: #### L INS LTHYR #### Testing performed at [address] [address] Platelet mean volume (Bld) [Entitic vol] 8.3 fL Normal 7.4-11.0 [facility] Comment on above: Performed By: #### L INS LTHYR #### Testing performed at [address] [address] Platelets (Bld) [#/Vol] 289 10*3/uL Normal 130-400 [facility] Comment on above: Performed By: #### L INS, LTHYR #### Testing performed at [address] [address] RBC (Bld) [#/Vol] 5.63 10*6/uL High 4.0-5.4 [facility] Comment on above: Performed By: #### L INS, LTHYR #### Testing performed at [address] [address] WBC (Bld) [#/Vol] 8.1 10*3/uL Normal 3.6-11.0 [facility] Comment on above: Performed By: #### L INS, LTHYR #### Testing performed at [address] [address] CMP FASTINGon 11-22-2022 A:G RATIO 1.5 RATIO Normal 1.3-2.2 [facility] Comment on above: Performed By: #### L INS, LTHYR #### Testing performed at [address] [address] ALBUMIN 4.4 G/dl Normal 3.5-5.0 [facility] Comment on above: Performed By: #### L INS, LTHYR #### Testing performed at [address] [address] ALP [Catalytic activity/Vol] 47 U/L Normal 38-126 [facility] Comment on above: Performed By: #### L INS, LTHYR #### Testing performed at [address] [address] ALT [Catalytic activity/Vol] 32 U/L Normal <35 [facility] Comment on above: Performed By: #### L INS, LTHYR #### Testing performed at [address] [place] [address] AST [Catalytic activity/Vol] 31 U/L Normal 14-36 [facility] Comment on above: Performed By: #### L INS LTHYR #### Testing performed at [address] [place] [address] [place] [address] Bilirubin [Mass/Vol] 0.5 mg/dL Normal 0.2-1.3 [facility] Comment on above: Performed By: #### L INS LTHYR #### Testing performed at [address] [place] [address] [place] [address] Calcium [Mass/Vol] 9.3 mg/dL Normal 8.4-10.2 [facility] Comment on above: Performed By: #### L INS LTHYR #### Testing performed at [address] [place] [address] Chloride [Moles/Vol] 104 mmol/L Normal 98-107 [facility] Comment on above: Result Comment: Eliud reyez note: Triglyceride levels of 600mg/dL or higher may positively bias chloride results by approximately 2.1 mmol Performed By: #### L INS LTHYR #### Testing performed at [address] [address] CO2 [Moles/Vol] 28 mmol/L Normal 22-30 [facility] Comment on above: Performed By: #### L INS LTHYR #### Testing performed at [address] [address] Creatinine [Mass/Vol] 0.90 mg/dL Normal 0.7-1.2 [facility] Comment on above: Performed By: #### L INS LTHYR #### Testing performed at [address] [facility] [place] [address] EST. GFR, 93 ml/min/1.73sq.m Normal [facility] Comment on above: Performed By: #### L INS LTHYR #### Testing performed [address] [place] [address] EST. GFR,Non 77 ml/min/1.73sq.m Normal [facility] Comment on above: Performed By: #### L INS LTHYR #### Testing performed at [address] [address] GFR Information Average GFR for 30-3 9 years old = 107. Normal [facility] Comment on above: Result Comment: [employer] brenton Kidney disease, GFR = <60. Kidney failure, GFR = <15. The GFR estimate is not adjusted for extreme body surface area or acute process, nor has it been validated for women or ethnic groups other than and . Performed By: #### L INS LTHYR #### Testing performed at [address] [address] Glucose [Mass/Vol] 83 mg/dL Normal 70-100 [facility] Comment on above: Result Comment: NORMAL <100 mg/dL PREDIABETES 101-126 mg/dL DIABETES 126 mg/dL or higher Performed By: #### L INS, LTHYR #### Testing performed at [address] [address] Potassium [Moles/Vol] 3.9 mmol/L Normal 3.5-5.1 [facility] Comment on above: Performed By: #### L INS, LTHYR #### Testing performed at [address] [address] Protein [Mass/Vol] 7.3 g/dL Normal 6.3-8.2 [facility] Comment on above: Performed By: #### L INS, LTHYR #### Testing performed at [address] [address] Sodium [Moles/Vol] 138 mmol/L Normal 137-145 [facility] Comment on above: Performed By: #### L INS, LTHYR #### Testing performed at [address] [address] Urea nitrogen [Mass/Vol] 12 mg/dL Normal 7-20 [facility] Comment on above: Performed By: #### L INS, LTHYR #### Testing performed at [address] [place] [address] FAX REQUESTon 11-22-2022 FAX TO [phone] [facility] FAX TO [phone] [facility] Comment on above: Performed By: #### L INS, LTHYR #### Testing performed at [address] [address] HEMOGLOBIN A1Con 11-22-2022 Glucose [Mass/Vol] 105 mg/dL Normal [facility] HbA1c (Bld) [Mass fraction] 5.3 % Normal 0-6 [facility] Comment on above: Result Comment: NORMAL <5.7% PREDIABETES 5.7-6.4% DIABETES 6.5% OR HIGHER IRONon 11-22-2022 Iron [Mass/Vol] 91 ug/dL Normal 37-170 [facility] Comment on above: Performed By: #### L INS, LTHYR #### Testing performed at [address] [address] LIPID PROFILEon 11-22-2022 Cholesterol [Mass/Vol] 176 mg/dL Normal 107-217 [facility] Comment on above: Performed By: #### L INS, LTHYR #### Testing performed at [address] [address] Cholesterol in HDL [Mass/Vol] 19 mg/dL Low 33-75 [facility] Comment on above: Performed By: #### L INS, LTHYR #### Testing performed at [address] [address] Cholesterol in LDL [Mass/Vol] 55 mg/dL Normal [facility] Comment on above: Performed By: #### L INS, LTHYR #### Testing performed at [address] [place] [address] Cholesterol in VLDL [Mass/Vol] 102 mg/dL High 5.0-25 [facility] Comment on above: Performed By: #### L INS, LTHYR #### Testing performed at [address] [place] [address] Cholesterol.total/Chol esterol in HDL [Mass ratio] 9.26 {ratio} Normal [facility] Comment on above: Result Comment: RISK TOTAL/HDL RATIO MEN WOMEN 1/2 AVERAGE 3.43 3.27 AVERAGE 4.97 4.44 2X AVERAGE 9.55 7.05 3X AVERAGE 23.99 11.04 Performed By: #### L INS, LTHYR #### Testing performed at [address] [place] [address] Triglyceride [Mass/Vol] 509 mg/dL High 0-150 [facility] Comment on above: Performed By: #### L INS, LTHYR #### Testing performed at [address] [address] [address] Lumbar spine W contrast I [place] [...] findings. 3. 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 [facility] CT Lumbar spine W contrast I VOrdered By: Vin Raymond on 08-28-2021 [facility] Work Phone: CT SPINE LUMBAR WITH [...] 3. 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 Normal [facility] CT Lumbar spine W contrast I Von 08-24-2021 Radiology Study observation (narrative) [facility] GENERAL PROCEDUREon 08-25-19 Radiology Study observation (narrative) [facility] No Panel InformationOrdered By: Vin Raymond on 08-24-2021 [facility] Work Phone: RF Guidance for injection [...] I have reviewed and approved this report. [facility] Radiology Study observation (narrative) [facility] XR FLUORO MYELOGRAM LUMBAR O NLYon [...] have reviewed and approved this report. Normal [facility] MRI SPINE LUMBAR WITH AND WI THOUT [...] and right L5 neural foraminal narrowing. Normal [facility] XR SPINE LUMBOSACRAL 5 VIEWS on 06-26-2021 [...] spinal instability with flexion or extension Normal [facility] XR Spine Lumbar and Sacrum 5 Viewson [...] No spinal instability with flexion or extension [facility] Radiology Study observation (narrative) [facility] XR Spine Lumbar and Sacrum 5 ViewsOrdered By: Anna Heaton on 06-26-2021 [facility] Work Phone: XR CHEST PA AND LATERALon XR CHEST PA AND LATERAL CLINICAL HISTORY: Fever and cough. COMPARISON: None. FINDINGS: PA and lateral views of the chest obtained. Cardiomediastinal silhouette is normal. Lungs are clear, no evidence of infiltrate or pleural effusion. No suspicious nodule or mass. No evidence of pneumothorax. No acute bony abnormality. IMPRESSION: No acute abnormality. Normal [facility] NOVEL CORONAVIRUSon 02-29-20 21 NARRATIVE This test was performed using isothermal AZIRA and has been approved as Emergency Use Authorization (EUA) for the qualitative detection [id number] nucleic acid. Normal [facility] Comment on above: Performed By: #### C OVID #### Testing performed at [address] [address] SARS-CoV-2 (COVID-19) RNA ZAIRA+probe Ql (Unsp spec) Not detected Normal NOT DETECTED [facility] Comment on above: Result Comment: Nega [...] #### C OVID #### Testing performed at [address] [place] [address] COVID-19 PCRon 01-28-2020 SARS-CoV-2 (COVID-19) RNA ZAIRA+probe Ql (Unsp spec) Not detected Normal Not Detected [facility] Comment on above: Result Comment: This nucleic acid amplification test was developed and its performance characteristics determined by [employer]. Nucleic acid amplification tests include PCR and [...] assay. Performed By: #### C VDPCR #### [facility] [address] [place] [address] Juan Francisco Saldana BASIC METABOLIC PANELon 09-07 Anion gap [Moles/Vol] 14 mmol/L [employer] Calcium [Mass/Vol] 9.8 mg/dL [facility] [employer] Chloride [Moles/Vol] 99 mmol/L [facility] Comment on above: Please note: Triglyc eride levels of 600mg/dL or higher may positively bias chloride results by approximately 2.1 mmol CO2 [Moles/Vol] 27 mmol/L [facility] Creatinine [Mass/Vol] 0.79 mg/dL [employer] GFR/1.73 sq M predicted among blacks MDRD (S/P/Bld) [Vol rate/Area] mL/min/{1.73_m2} ml/min/1.73sq .m [employer] GFR/1.73 sq M predicted among non-blacks MDRD (S/P/Bld) [Vol rate/Area] mL/min/{1.73_m2} ml/min/1.73sq .m [employer] GFR/1.73 sq M predicted among non-blacks MDRD (S/P/Bld) [Vol rate/Area] Average GFR for 20-29 years old = 116. [employer] Comment on above: Chronic Kidney disea se, GFR = <60. Kidney failure, GFR = <15. The GFR estimate is not adjusted for extreme body surface area or acute process, nor has it been validated for women or ethnic groups other than and . Glucose post fast [Mass/Vol] 92 mg/dL [facility] Comment on above: NORMAL <100 mg/dL PREDIABETES 101-126 mg/dL DIABETES 126 mg/dL or higher Potassium [Moles/Vol] 3.8 mmol/L [facility] Sodium [Moles/Vol] 140 mmol/L [facility] Urea nitrogen [Mass/Vol] 10 mg/dL [facility] BETA HCG, QUAL, BLOODon 09-07 HCG ( test) Ql Negative [facility] CBC, EDIF, PLATELETon 2018 ABSOLUTE BASOPHIL COUNT 0.1 X10 [facility] Basophils/100 WBC (Bld) 0.7 % 0 - 2 % [facility] Differential cell count method Nom (Bld) AUTO DIFF % [facility] Eosinophils (Bld) [#/Vol] 0.10 10*3/uL X10 [facility] Eosinophils/100 WBC (Bld) 1.5 % 0 - 11 % [facility] Erythrocyte distribution width (RBC) [Ratio] 15.9 % High 11.5 - 14.5 % [facility] Hematocrit (Bld) [Volume fraction] 44.6 % 36 - 48 % [facility] Hemoglobin (Bld) [Mass/Vol] 15.4 g/dL [facility] Interpretation and review of laboratory results Abnormal [facility] Lymphocytes (Bld) [#/Vol] 1.20 10*3/uL X10 [facility] Lymphocytes/100 WBC (Bld) 13.4 % Low 20 - 55 % [facility] MCH (RBC) [Entitic mass] 29.7 pg 26 - 35 PG [facility] MCHC (RBC) [Mass/Vol] 34.5 g/dL [facility] MCV (RBC) [Entitic vol] 86.3 fL [facility] Monocytes (Bld) [#/Vol] 0.6 10*3/uL X10 [facility] Monocytes/100 WBC (Bld) 6.7 % 0 - 10 % [facility] Neutrophils (Bld) [#/Vol] 7.2 10*3/uL High [facility] Neutrophils/100 WBC (Bld) 77.7 % High 37 - 75 % [facility] Platelet mean volume (Bld) [Entitic vol] 7.9 fL [facility] Platelets (Bld) [#/Vol] 338 10*3/uL [facility] RBC (Bld) [#/Vol] 5.17 10*6/uL [facility] WBC (Bld) [#/Vol] 9.2 10*3/uL [facility] CBC, EDIF, PLATELETon 2018 ABSOLUTE BASOPHIL COUNT 0.1 X10 [facility] Basophils/100 WBC (Bld) 0.9 % 0 - 2 % [facility] Differential cell count method Nom (Bld) AUTO DIFF % [facility] Eosinophils #/vol (Bld) 0.20 10*3/uL X10 [...] 22.5 % 20 - 55 % [facility] MCH Entitic mass (RBC) 29.4 pg 26 - 35 PG [facility] MCHC mass conc (RBC) 33.5 g/dL [facility] MCV Entitic volume (RBC) 87.7 fL [facility] Monocytes #/vol (Bld) 0.5 10*3/uL X10 [facility] Monocytes/100 WBC (Bld) 6.7 % 0 - 10 % [facility] Neutrophils #/vol (Bld) 5.4 10*3/uL [facility] Neutrophils/100 WBC (Bld) 67.5 % 37 - 75 % [facility] Platelet mean volume Entitic volume (Bld) 8.1 fL [facility] Platelets #/vol (Bld) 383 10*3/uL [facility] RBC #/vol (Bld) 5.24 10*6/uL [facility] WBC #/vol (Bld) 8.0 10*3/uL [facility] COMPREHENSIVE METABOLIC PANE Gregory 07-02-2018 Albumin mass conc 5.1 G/dl High 3.5 - 5 G/dl [facility] Albumin/Globulin mass ratio 1.6 {ratio} [facility] ALP enzyme act/vol 63 U/L [facility] ALT enzyme act/vol 46 U/L [facility] AST enzyme act/vol 41 U/L High [facility] Bilirubin mass conc 0.3 mg/dL [facility] Calcium mass conc 9.8 mg/dL [facility] Chloride molar conc 103 mmol/L [facility] Comment on above: Please note: Triglyc eride levels of 600mg/dL or higher may positively bias chloride results by approximately 2.1 mmol CO2 molar conc 26 mmol/L [facility] Creatinine mass conc 0.85 mg/dL [facility] GFR/1.73 sq M predicted among blacks MDRD vol rate/area (S/P/Bld) mL/min/{1.73_m2} ml/min/1.73sq .m [facility] GFR/1.73 sq M predicted among non-blacks MDRD vol rate/area (S/P/Bld) mL/min/{1.73_m2} ml/min/1.73sq .m [facility] GFR/1.73 sq M predicted among non-blacks MDRD vol rate/area (S/P/Bld) Average GFR for 20-29 years old = 116. [facility] [employer] Comment on above: Chronic Kidney disea se, GFR = <60. Kidney failure, GFR = <15. The GFR estimate is not adjusted for extreme body surface area or acute process, nor has it been validated for women or ethnic groups other than and . Glucose fasting mass conc 114 mg/dL High [facility] [employer] Comment on above: NORMAL <100 mg/dL PREDIABETES 101-126 mg/dL DIABETES 126 mg/dL or higher Interpretation and review of laboratory results Abnormal [facility] Potassium molar conc 3.5 mmol/L [facility] Protein mass conc 8.3 g/dL High [facility] Sodium molar conc 142 mmol/L [facility] Urea nitrogen mass conc 11 mg/dL [facility] D-DIMER,QUANTITATIVEon 07-02 Fibrin D-dimer FEU mass conc (PPP) 0.33 [facility] [employer] LIPASEon 07-02-2018 Lipase enzyme act/vol 55 U/L 23 - 300 U/L [facility] [employer] TROPONINon 07-02-2018 Troponin I.cardiac mass conc ng/mL 0 - 0.08 ng/mL [employer] KNEE RIGHT 1 OR 2 Son 02-07 KNEE RIGHT 1 OR 2 [facility] Department of Radiology [address] [place] [id number] Patient Name: MAMADOU BERRY : 1990 Sex: F Age: Race: White Pt. Location: Patient Status: O Ordered Date: 02/17/2018 11:15:00 AM Completed Date: 02/17/2018 11:15 AM Requesting Provider: HA RAYMOND Attending Provider: HA RAYMOND Report Copy To: Signs & Symptoms: S83.511A Sprain of anterior cruciate ligament of right knee, init I10 History: Jackson Comments: , Views (X-RAY, KNEE): AP, Lateral [...] effusion Electronically signed by:Ha Harvey. Transcribed by: [email or web address], User Resident: Electronically Signed by: HA HARVEY @ 02/17/2018 03:54 PM Normal [facility] Comment on above: Order Comment: , Aidae ws (X-RAY, KNEE): AP, Lateral , Weight Bearing?: N , Views (X-RAY, KNEE): AP, Lateral , Weight Bearing?: N , , , Ordering Provider - HA RAYMOND MD , Operative Reporton 8 Operative Report MR#: [id number] [facility] Pt. Name: Mamadou Berry Room #: 0C Discharge 02/06/2018 Date: Birthdate: 1990 OPERATIVE REPORT DATE OF SURGERY: 02/06/2018 SURGEON: Ha Raymond M.D. 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 This would be in form of right [...] meniscus. We then utilized a 4.5 mm [place] Reamer followed by a 10 mm Cloth Doffer to make a tunnel. Curette was utilized [...] thigh. We then reamed with 4.5 mm [place] Reamer full thickness and then a low-profile [...] knee hyperflexed, we placed a malleted a senior genetic counselor followed by guidewire in an 8 x [...] right lower extremity. She will be given [place] for pain control and aspirin for DVT prophylaxis. I will see her back in the clinic in 5 days for a wound check and initiation of physical therapy. Electronically Signed by: Ha Raymond M.D. 02/16/2018 10:43 A Ha Raymond M.D. Date Dict: 02/06/2018/01:17 P/Ha Raymond M.D. Date Trans: 02/07/2018 12:12 Giovana/aliyah [id number] cc: Fatemeh Palencia M.D. [address], [facility] [id number] [place] [facility] KNEE RIGHT 1 OR 2 [facility] 01-10 KNEE RIGHT 1 OR 2 [facility] Department of Radiology [address] [place] [id number] Patient Name: MAMADOU BERRY : 1990 [...] Documentation Electronically signed by:Ha Harvey. Transcribed by: [email or web address], User Resident: Electronically Signed by: HA HARVEY @ 02/06/2018 01:22 PM Normal [facility] Comment on above: Order Comment: right knee scope POC GLUCOSE LABon 02-06-2018 Glucose mass conc 100 mg/dL Normal 70-100 [facility] Comment on above: Performed By: #### 8 [id number] #### [address] LOWER EXTREMITY WO CONTRA ST RIGHTon 12-19-2017 CT LOWER EXTREMITY WO CONTRAST RIGHT [facility] Department of Radiology [address] [place] [address] Patient Name: MAMADOU BERRY : 1990 Sex: F Age: Race: NA Pt. Location: 84 Patient Status: D Ordered Date: 12/08/2017 5:00:00 PM Completed Date: 12/19/2017 05:53 PM Requesting Provider: HA RAYMOND Attending Provider: HA RAYMOND Report Copy To: SELF, REFERRED Signs & Symptoms: M25.569 Pain in unspecified knee I10 History: Jackson phone [phone] Needs F/U with ortho [facility] [place] REQ [id number] REF [phone] Comments: ACL tunnel osteolysis Exam: CT LOWER [...] bodies. Electronically signed by:Ha Harvey. Transcribed by: [email or web address], User Resident: Electronically Signed by: HA HARVEY @ 12/21/2017 11:35 AM Normal [facility] Comment on above: Order Comment: ACL t unnel osteolysis LOWER EXTREMITY JOINT SURVEY on 12-08-2017 LOWER EXTREMITY JOINT SURVEY [facility] Department of Radiology [address] [place] [id number] Patient Name: MAMADOU BERRY : 1990 Sex: F Age: Race: NA Pt. Location: 84 Patient Status: O Ordered Date: 12/08/2017 4:15:00 PM Completed Date: 12/08/2017 04:13 PM Requesting Provider: HA RAYMOND Attending Provider: HA RAYMOND Report Copy To: Signs & Symptoms: M25.569 Pain in unspecified knee I10 History: Jackson Comments: , , , Ordering Provider - [...] result Electronically signed by:Ha Harvey. Transcribed by: [email or web address], User Resident: Electronically Signed by: HA HARVEY @ 12/08/2017 04:39 PM Normal [facility] Comment on above: Order Comment: , , = ========= , Ordering Provider - HA RAYMOND MD , Vital Signs Date Time Vital Sign Value Performing Clinician [place] pate 10-30-2023 10:03-0400 Diastolic blood pressure 91 mm[Hg] Dayron Foskey DO Work Phone: [facility] [email or web address] 10-30-2023 10:03-0400 Heart rate 85 /min Dayron Foskey DO Work Phone: [employer] [facility] [email or web address] 10-30-2023 10:03-0400 Respiratory rate 14 /min Dayron Foskey DO Work Phone: [facility] [email or web address] 10-30-2023 10:03-0400 SaO2% (BldA) [Mass fraction] 98 % Dayron Foskey DO Work Phone: [facility] [email or web address] 10-30-2023 10:03-0400 Systolic blood pressure 168 mm[Hg] Dayron Foskey DO Work Phone: 10-30-2023 09:44-0400 Body temperature 98.2 [degF] Dayron Tinsley DO Work Phone: 09-05-2021 11:08-0400 Body height 175.3 cm Margaret Boo MD Work Phone: [facility] 09-05-2021 11:08-0400 Body mass index (BMI) [Ratio] 42.83 kg/m2 Margaret Boo MD Work Phone: [facility] 09-05-2021 11:08-0400 Body temperature 97.11 [degF] Margaret Boo MD Work Phone: [facility] 09-05-2021 11:08-0400 Body weight 131.54 kg Margaret Boo MD Work Phone: [facility] 09-05-2021 11:08-0400 Heart rate 81 /min Margaret Boo MD Work Phone: [facility] 09-05-2021 11:08-0400 SaO2% (BldA) [Mass fraction] 97 % Margaret Boo MD Work Phone: [facility] 08-24-2021 15:16-0400 Diastolic blood pressure 80 mm[Hg] Margaret Boo MD Work Phone: [facility] 08-24-2021 15:16-0400 Heart rate 73 /min Margaret Boo MD Work Phone: [facility] 08-24-2021 15:16-0400 Respiratory rate 14 /min Margaret Boo MD Work Phone: [facility] 08-24-2021 15:16-0400 SaO2% (BldA) [Mass fraction] 98 % Margaret Boo MD Work Phone: [facility] 08-24-2021 15:16-0400 Systolic blood pressure 127 mm[Hg] Margaret Boo MD Work Phone: [facility] 08-24-2021 14:48-0400 Body temperature 98.4 [degF] Margaret Boo MD Work Phone: [facility] 08-24-2021 14:48-0400 Diastolic blood pressure 58 mm[Hg] Margaret Boo MD Work Phone: [facility] 08-24-2021 14:48-0400 Heart rate 66 /min Margaret Boo MD Work Phone: [facility] 08-24-2021 14:48-0400 Respiratory rate 16 /min Margaret Boo MD Work Phone: [facility] 08-24-2021 14:48-0400 SaO2% (BldA) [Mass fraction] 97 % Margaret Boo MD Work Phone: [facility] 08-24-2021 14:48-0400 Systolic blood pressure 123 mm[Hg] Margaret Boo MD Work Phone: [facility] 08-24-2021 14:00-0400 Diastolic blood pressure 73 mm[Hg] Jeyson Medina MD Work Phone: [facility] 08-24-2021 14:00-0400 Respiratory rate 17 /min Jeyson Medina MD Work Phone: [facility] 08-24-2021 14:00-0400 SaO2% (BldA) [Mass fraction] 95 % Jeyson Medina MD Work Phone: [facility] 08-24-2021 14:00-0400 Systolic blood pressure 140 mm[Hg] Jeyson Medina MD Work Phone: [facility] 08-08-2021 11:04-0400 Body height 175.3 cm Margaret Boo MD Work Phone: [facility] 08-08-2021 11:04-0400 Body mass index (BMI) [Ratio] 42.83 kg/m2 Margaret Boo MD Work Phone: [facility] 08-08-2021 11:04-0400 Body temperature 97 [degF] Margaret Boo MD Work Phone: [facility] 08-08-2021 11:04-0400 Body weight 131.54 kg Margaret Boo MD Work Phone: [facility] 08-08-2021 11:04-0400 Heart rate 107 /min Margaret Boo MD Work Phone: [facility] 08-08-2021 11:04-0400 SaO2% (BldA) [Mass fraction] 97 % Margaret Boo MD Work Phone: [facility] 07-13-2021 16:23-0400 Body height 175.3 cm Faith BROCK-C Work Phone: [facility] 07-13-2021 16:23-0400 Body mass index (BMI) [Ratio] 41.35 kg/m2 Faith BROCK-C Work Phone: [facility] 07-13-2021 16:23-0400 Body weight 127.01 kg Faith BROCK-C Work Phone: [facility] 07-13-2021 16:23-0400 Diastolic blood pressure 103 mm[Hg] Faith BROCK-C Work Phone: [facility] 07-13-2021 16:23-0400 Heart rate 105 /min Faith Fela PA-C Work Phone: [facility] 07-13-2021 16:23-0400 Systolic blood pressure 145 mm[Hg] Faith Davis PA-C Work Phone: [facility] 06-26-2021 10:17-0400 Body height 175.3 cm Faith Davis PA-C Work Phone: [facility] 06-26-2021 10:17-0400 Body mass index (BMI) [Ratio] 39.72 kg/m2 Faith Davis PA-C Work Phone: [facility] 06-26-2021 10:17-0400 Body temperature 97.11 [degF] Faith Davis PA-C Work Phone: [facility] 06-26-2021 10:17-0400 Body weight 122.02 kg Faith Davis PA-C Work Phone: [facility] 06-26-2021 10:17-0400 Heart rate 96 /min Faith Davis PA-C Work Phone: [facility] 06-26-2021 10:17-0400 SaO2% (BldA) [Mass fraction] 100 % Faith Davis PA-C Work Phone: [facility] 10-10-2018 14:090400 Height 175.3 cm [facility] 10-10-2018 14:08-0400 Body Temperature 98.01 [degF] [facility] 10-10-2018 14:08-0400 BP Diastolic 99 mm[Hg] [facility] 10-10-2018 14:08-0400 BP Systolic 151 mm[Hg] [facility] 10-10-2018 14:08-0400 Pulse (Heart Rate) 83 /min [facility] 10-10-2018 14:08-0400 Pulse Oximetry 99 % [facility] 10-10-2018 14:08-0400 Respiratory Rate 20 /[facility] 01:02-0400 BP Diastolic 70 mm[Hg] [facility] 09-24-2018 01:02-0400 BP Systolic 159 mm[Hg] [facility] 09-24-2018 01:02-0400 Pulse (Heart Rate) 102 /min [facility] 09-24-2018 01:02-0400 Pulse Oximetry 98 % [facility] 09-24-2018 01:02-0400 Respiratory Rate 18 /min [facility] 09-23-2018 23:10-0400 Height 175.3 cm [facility] 09-23-2018 23:09-0400 Body Temperature 98.29 [degF] [facility] 09-22-2018 20:09-0400 Height 175.3 cm [facility] 09-22-2018 20:08-0400 Body Temperature 97.7 [degF] [facility] 09-22-2018 20:08-0400 BP Diastolic 90 mm[Hg] [facility] 09-22-2018 20:08-0400 BP Systolic 166 mm[Hg] [facility] 09-22-2018 20:08-0400 Pulse (Heart Rate) 106 /min [facility] 09-22-2018 20:08-0400 Pulse Oximetry 94 % [facility] 09-22-2018 20:08-0400 Respiratory Rate 18 /min [facility] 07-02-2018 19:00-0400 BP Diastolic 86 mm[Hg] [facility] 07-02-2018 19:00-0400 BP Systolic 171 mm[Hg] [facility] 07-02-2018 19:00-0400 Pulse (Heart Rate) 110 /min [facility] 07-02-2018 19:00-0400 Pulse Oximetry 93 % [facility] 07-02-2018 19:00-0400 Respiratory Rate 25 /min [facility] 07-02-2018 16:40-0400 Height 177.8 cm [facility] Encounters Encounter Date Encounter Type Care Provider Facility Start: 10-30-2023 End: 10-30-2023 Emergency department patient visit Dayron Tinsley DO [facility] Start: 07-03-2023 End: 07-03-2023 Emergency department patient visit RAMONA SHEN [facility] Start: 04-18-2023 ambulatory FATEMEH M [facility] Start: 11-22-2022 ambulatory FATEMEH M [facility] Start: 09-05-2021 ambulatory SAFDAKen BOO [facility]: [facility] Start: 09-05-2021 End: 09-05-2021 Office outpatient visit 15 minutes Margaret Boo MD Work Phone: [facility] Comment on above: Numbness and tinglin [...] MD Work Phone: [facility] Comment on above: Numbness and tinglin g of both feet (Primary Dx); Lumbar radiculopathy Start: 07-25-2021 ambulatory FATEMEH M HOY Facility: [facility] Start: 07-13-2021 ambulatory FATEMEH M HOY Facility: [facility] Start: 07-13-2021 End: 07-13-2021 Subsequent hospital visit by physician Faith Davis PA-C Work Phone: [facility] Comment on above: Arrived Start: 06-26-2021 [...] 01-10-2020 End: 01-10-2020 ambulatory FATEMEH ANTHONY DO Facility:[facility] Start: 10-10-2018 End: 10-10-2018 Emergency department patient visit Dany Montes Work Phone: [facility] Start: 09-23-2018 End: 09-24-2018 Emergency department patient visit Delon Gutierrez Work Phone: [facility] Start: 09-22-2018 End: 09-22-2018 Emergency department patient visit Dayron Tinsley Work Phone: [facility] Start: 07-02-2018 End: 07-02-2018 Emergency department patient visit Kalen Oseguera Work Phone: [facility] Start: 02-17-2018 End: 02-18-2018 Patient encounter procedure HA RAYMOND Facility:[facility] Start: 02-06-2018 End: 02-07-2018 Patient encounter procedure DAYRON RAYMOND Facility:[facility] Start: 01-02-2018 End: 01-03-2018 Patient encounter procedure HA RAYMOND Facility:[facility] Start: 12-19-2017 End: 12-20-2017 Patient encounter procedure HA RAYMOND Facility:[facility] Start: 12-08-2017 End: 12-09-2017 Patient encounter procedure HA RAYMOND Facility:[facility] Start: 12-02-2017 End: 12-03-2017 Patient encounter procedure DEFAULT PHYSICIAN Facility:[facility] Procedures Date Procedure Procedure Detail Performing Clinician [...] 11-09-2023 Influenza vaccination INFLUENZA VACC INE (#1) Start: 11-08-2022 COVID-19 VACCINE ( season) COVID-19 VACCINE ( season) Start: 11-08-2021 Influenza vaccination INFLUENZ A VACCINE (Season Ended) [facility] Start: 09-05-2021 End: 09-05-2021 Patient encounter procedure 09/05/2021 Office Visit Multispecialty Margaret Boo MD [address] [place] [address] [facility] Start: 08-24-2021 End: 08-24-2021 Patient encounter procedure Ambulatory Surgery Unit Start: 08-08-2021 End: 08-08-2022 CT Lumbar spine WO contrast CT SPINE LUMBAR WITHOUT CONTRAST Imaging Routine Numbness and tingling of both feet Lumbar radiculopathy Expected: 08/08/2021, Expires: 08/08/2022 [facility] Comment on above: Expected: 08/08/2021 , Expires: 08/08/2022 Start: 08-08-2021 End: 08-08-2022 RF Guidance for injection of Lumbar spine XR FLUORO MYELOGRAM LUMBAR ONLY Imaging Routine Numbness and tingling of both feet Lumbar radiculopathy Expected: 08/08/2021, Expires: 08/08/2022 [facility] Comment on above: Expected: 08/08/2021 , Expires: 08/08/2022 Start: 07-25-2021 End: 07-25-2021 Patient encounter procedure 07/25/2021 Office Visit Multispecialty Margaret Boo MD [address] [place] [address] [facility] Start: 07-13-2021 End: 07-13-2021 Patient encounter procedure 07/13/2021 Appointment Magnetic Resonance Imaging Faith Davis PA-C [address] [place] [address] Imaging Outpatient Care [facility] Start: 06-26-2021 End: 06-26-2022 MR Lumbar spine WO and W contrast IV MRI SPINE LUMBAR WITH AND WITHOUT CONTRAST Imaging Routine Lumbar radiculopathy Acute bilateral low back pain with bilateral sciatica Expected: 06/26/2021, Expires: 06/26/2022 [facility] Comment on above: Expected: 06/26/2021 , Expires: 06/26/2022 Start: 11-08-2018 Influenza vaccination [facility] Start: 2011 Screening for malignant neoplasm of cervix [facility] Start: 2009 Third diphtheria, tetanus and acellular pertussis (DTaP) vaccination TDAP (ADULT) [facility] Start: 2008 Tetanus vaccination TETANUS [facility] Start: 2005 HIV screening HIV SCREENING DISCUSSI ON [facility] Start: 2003 HIV screening HIV SCREENING DISCUSSI ON [facility] Start: 1995 COVID-19 VACCINE (#1) COVID-19 VACCI NE (#1) [facility] Start: 1995 COVID-19 VACCINE (1) COVID-19 VACCIN E (1) [facility] Start: 1990 COVID-19 VACCINE (#1) COVID-19 VACCI NE (#1) [facility] Start: 1990 Tetanus vaccination TETANUS [facility] CT of abdomen and pelvis CT ABDOMEN/PELVIS WITHOUT CONTRAST Imaging STAT 07/02/2018 5:49 PM EDT [facility] End: 07-13-2021 MR Lumbar spine WO and W contrast IV [facility] Comment on above: 1 Occurrences starti ng 07/13/2021 until 07/13/2021 End: 07-02-2018 Standard ECG ECG ECG STAT One Time for 1 Occurrences starting 07/02/2018 until 07/02/2018 [email or web address] Comment on above: One Time for 1 Occur rences starting 07/02/2018 until 07/02/2018 End: 09-23-2018 Standard ECG ECG ECG STAT One Time for 1 Occurrences starting 09/23/2018 until 09/23/2018 [email or web address] Comment on above: One Time for 1 Occur rences starting 09/23/2018 until 09/23/2018 Immunizations Immunization Date Immunization Notes Care Provider Vivi morse 02-25-2020 influenza virus vaccine, unspecified formulation Faith Davis PA-C Work Phone: [facility] 01-20-2017 influenza virus vaccine, unspecified formulation Delon Gutierrez [facility] Payers Date Payer Category Payer Unknown [id number] 2022 Unknown [id number] 2021 Unknown [id number] 2021 Unknown 2021 Unknown [id number] 2018 Private Health Insurance [employer] A ETNA GENERIC xxxxxxxxxx 2018-Present xxxxxxxxxx [id number] 2014 Unknown [id number] 2006 Private Health Insurance [id number] 1990 Unknown [id number] 2.16.840.1.401265.3.579. 2.647 1990 Unknown [id number] 2.16.840.1.086980.3.579. 2.647 1990 Unknown [id number] 2.16.840.1.594667.3.579. 2.647 1990 Unknown [id number] 2.16.840.1.418053.3.579. 2.647 1990 Unknown [id number] 2.16.840.1.124459.3.579. 2.647 1990 Unknown [id number] 2.16.840.1.402333.3.579. 2.647 1990 Unknown [id number] 2.16.840.1.973346.3.579. 2.419 1990 Unknown [id number] 2.16.840.1.165377.3.579. 2.593 1990 Unknown [id number] 2.16.840.1.969858.3.579. 2.593 1990 Unknown [id number] 2.16.840.1.471492.3.579. 2.593 1990 Unknown [id number] 2.16.840.1.982819.3.579. 2.593 1990 Unknown [id number] 2.16.840.1.146145.3.579. 2.594 1990 Unknown [id number] 2.16.840.1.358532.3.579. 2.594 1990 Unknown [id number] 2.16.840.1.025288.3.579. 2.594 1990 Unknown [id number] 2.16.840.1.867766.3.579. 2.594 1990 Unknown [id number] 2.16.840.1.865330.3.579. 2.594 1990 Unknown [id number] 2.16.840.1.812322.3.579. 2.594 1990 Unknown [id number] 2.16.840.1.408495.3.579. 2.594 1990 Unknown [id number] 2.16.840.1.577814.3.579. 2.173 1990 Unknown [id number] 2.16.840.1.941814.3.579. 2.983 1990 Unknown [id number] 2.16.840.1.600516.3.579. 2.983 1990 Unknown [id number] 2.16.840.1.904093.3.579. 2.983 1959 Private Health Insurance [id number] 1959 Self-pay [id number] 1959 Unknown [id number] 1959 Worker's Compensation [id number] Social History Date Type Detail Facility Start: 07-02-2018 End: 10-10-2018 Tobacco smoking status [facility] Never smoker [facility] Start: 07-02-2018 Alcohol Comment socially SILVERIO Gomez [facility] Start: 1990 Sex Assigned At Not on file [facility] Start: 07-02-2018 Tobacco use and exposure Smokeless tobacco non-user [facility] Start: 06-26-2021 End: 10-30-2023 Alcohol intake Current drinker of alcohol (finding) [facility] Start: 06-08-2021 End: 06-18-2021 Exposure to SARS-CoV-2 (event) Not sure [facility] Start: 06-26-2020 End: 09-05-2021 History of Social function Start: 06-26-2020 End: 09-05-2021 Tobacco use panel Adolescent depressio n screening assessment 2 Start: 05-17-2019 Gender identity Identifies as male gender (finding) Medical Equipment Procedure Code Equipment Code Equipment Origin al Text Equipment Identifier Dates fluorescein ophthalmic strip 0.6 mg [id number] Start: 10-10-2018 End: 10-10-2018 Clinical Notes 06-26-2021 to 10-30-2023 Radha Parikh RN - 10/30/2023 10:30 AM EDJose Luis Parikh RN - 10/30/2023 10:30 AM EDMira Tinsley DO - 10/30/2023 9:43 AM EDTDischarge InstructionsAttachmentsDischarge Instructions Note Date & Type Note Facility 10-30-[address] T[facility] at [facility]. Discharge instructions regviewed in detail, verbally voices understanding. N/c voiced, aware to call PCP for follow-up. And take AM BP med. 10-30-[address] Tinsley at [facility]. Discharge instructions regviewed in detail, verbally voices understanding. N/c voiced, aware to call PCP for follow-up. And take AM BP med. Emergency Department Report [facility] Service Date:.10/30/23 PCP: Fatemeh Jose [...] Laterality: Left; Surgeon: Margaret Boo MD; Location: [facility] MAIN OR KNEE SURGERY Right x5 Allergies: [...] DO 10/30/23 1029 documented in this encounter 10-30-2023 Hospital Discharg e instructions Dayron Tinsley [...] You may find a provider through the [employer] Physician Referral Service by calling [phone] or by visiting [email or web address] Thank You for choosing the [facility] Emergency Department! The following attachments cannot be sent through Care Everywhere.Uvulitis (Maltese)documented in this encounter 10-30-2023 Physician Emergency department Note Emergency Department Report [facility] EM[facility]IC[facility] Service Date:.10/30/23 PCP: Fatemeh [...] Laterality: Left; Surgeon: Margaret Boo MD; Location: [facility] MAIN OR DISCECTOMY POSTERIOR LUMBAR Left 03/30/2019 Laterality: Left; Surgeon: Margaret Boo MD; Location: [facility] MAIN OR KNEE SURGERY Right x5 Allergies: [...] above information. Dayron Tinsley DO 10/30/23 1029 [facility] 09-05-2021 History of Presen t illness [...] with the patient and family. The total nmof-ov-cxes time spent on this visit was greater than 30 minutes, with the majority (>50%) of the time spent in counseling, discussing pathology and management options, and coordination of care. Margaret Boo MD documented in this encounter [facility] 08-24-2021 History of Presen t illness [...] per MD order. documented in this encounter [facility] 08-24-2021 Hospital Discharg e instructions Lizz [...] Radiology at documented in this encounter [facility] 08-24-2021 History of Presen t illness Narrative Patient Information: Inpatient/Outpatient:Outpatient Weight: 290lb Code Status: Full Code IV: No In Store Marketing Associate: Klarissa Santiago Radiology waiting area CT orders [...] Following CT documented in this encounter [facility] 08-08-2021 History of Presen t illness [...] with the patient and family. The total obps-jm-qwdu time spent on this visit was greater than 30 minutes, with the majority (>50%) of the time spent in counseling, discussing pathology and management options, and coordination of care. Margaret Boo MD documented in this encounter [facility] 06-26-2021 History of Presen t illness [...] to sleep. 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 He is ambulatory without the use of [...] after MRI documented in this encounter [facility] Evaluation note Diagnosis Low back pain, unspecified back pain laterality, unspecified chronicity, unspecified whether sciatica present- Primary Lumbar radiculopathy Thoracic or lumbosacral neuritis or radiculitis, unspecified Acute bilateral low back pain with bilateral sciatica S/P lumbar microdiscectomy Other postprocedural status Low back pain, unspecified back pain laterality, unspecified chronicity, unspecified whether sciatica present [facility] Diagnosis Low back pain, unspecified back pain laterality, unspecified chronicity, unspecified whether sciatica present [facility] Lumbar radiculopathy Thoracic or lumbosacral neuritis or radiculitis, unspecified Acute bilateral low back pain with bilateral sciatica [facility] Diagnosis Numbness and tingling of both feet- Primary Lumbar radiculopathy Thoracic or lumbosacral neuritis or radiculitis, unspecified [facility] Diagnosis Numbness and tingling of both feet Lumbar radiculopathy Thoracic or lumbosacral neuritis or radiculitis, unspecified [facility] Diagnosis Numbness and tingling of both feet Lumbar radiculopathy Thoracic or lumbosacral neuritis or radiculitis, unspecified [facility] Diagnosis Numbness and tingling of both feet- Primary [facility] Diagnosis Uvulitis- Primary Cellulitis and abscess of oral soft tissues documented in this encounter Reason for referral (narrative)* Consultation (Routine) - New Request Specialty Diagnoses / Procedures Referred By Osito galicia Referred To Contact Neurology Diagnoses Numbness and tingling of both feet Margaret Boo MD [address] [place] [address] Referral ID Status Reason Start Date Expiration Date V isits Requested Visits Authorized [id number] New Request 09/05/2021 09/30/2022 1 1 [facility] Summary Purpose Family History No Family [...] Procedures ECG Kalen Oseguera MD [address] [place] [address] Status Reason Specialty Diagnoses / Procedures Referred By Contact Referred To Contact New Request Procedures Delon Perez MD [address] [place] [address] Specialty Diagnoses / Procedures Referred By Contac t Referred To Contact Physical Therapy Diagnoses Low back pain, unspecified back pain laterality, unspecified chronicity, unspecified whether sciatica present Lumbar radiculopathy Acute bilateral low back pain with bilateral sciatica Faith Davis, TAWANNAC [address] [place] [address] Referral ID Status Reason Start Date Expiration Date V isits Requested Visits Authorized [id number] New Request 06/26/2021 07/21/2022 1 1 Scheduling Instructions [facility] [address] [facility], 2nd [place] [address] Fax [facility] (Neck and Back Therapy) [address] [place] [address] FAX [facility] [address] [address] FAX Outpatient [facility] Outpatient [facility] [place] [address] [phone] FAX [facility] [address] [place] [address] FAX Physical Therapy at [address] [address] FAX [facility] [address] [address] FAX [facility] [address] [place], [place] [address] FAX Specialty Diagnoses / Procedures Referred By Contac t Referred To Contact Diagnoses Lumbar radiculopathy Acute bilateral low back pain with bilateral sciatica Procedures MRI SPINE LUMBAR WITH AND WITHOUT CONTRAST MA MRI, LUMBAR SPINE LENO Faith Davis PA-C [address] [place] [address] Referral ID Status Reason Start Date Expiration Date V isits Requested Visits Authorized [id number] New Request 06/26/2021 07/21/2022 1 1 Referral ID Status Reason Start Date Expiration Date V isits Requested Visits Authorized [id number] Pending Review 06/26/2021 07/21/2022 1 1 Specialty Diagnoses / Procedures Referred By Contac t Referred To Contact Diagnoses Numbness and tingling of both feet Lumbar radiculopathy Procedures XR FLUORO MYELOGRAM LUMBAR ONLY Margaret Boo MD [address] [place] [address] Referral ID Status Reason Start Date Expiration Date V isits Requested Visits Authorized [id number] New Request 08/08/2021 09/02/2022 1 1 Specialty Diagnoses / Procedures Referred By Contac t Referred To Contact Diagnoses Numbness and tingling of both feet Lumbar radiculopathy Procedures CT SPINE LUMBAR WITHOUT CONTRAST MA CT SCAN,LUMBAR SPINE,W/O CONTRAST Margaret Boo MD [address] [place] [address] Referral ID Status Reason Start Date Expiration Date V isits Requested Visits Authorized [id number] Pending Review 08/08/2021 09/02/2022 1 1 Specialty Diagnoses / Procedures Referred By Contac t Referred To Contact Diagnoses Numbness and tingling of both feet Lumbar radiculopathy Procedures CT SPINE LUMBAR WITH CONTRAST CT SPINE LUMBAR WITHOUT CONTRAST MA CT SCAN,LUMBAR SPINE,W/O CONTRAST MA CT SCAN LUMBAR SP CONTRAST Vin Humphrey MD [address] [address] [place] [address] Referral ID Status Reason Start Date Expiration Date Visits Re quested Visits Authorized [id number] Closed 08/08/2021 09/02/2022 1 Referral ID Status Reason Start Date Expiration Date V isits Requested Visits Authorized [id number] Pending Review 08/08/2021 09/02/2022 1 1 Discharge Instructions * Attachments The following attachments cannot be sent through Care Everywhere. * Abdominal Pain, Adult (Maltese) documented in this encounter* Instructions* Dayron Tinsley, [...] You may find a provider through the [employer] Physician Referral Service by calling [phone] or by visiting [email or web address] Thank You for choosing the [facility] Emergency Department! * Attachments The following attachments cannot be sent through Care Everywhere. * Tooth and Gum Pain (Maltese) documented in this encounter* Attachments The following attachments cannot be sent through Care Everywhere. * Nausea and Vomiting (Maltese) documented in this encounter* Attachments The following attachments cannot be sent through Care Everywhere. * Conjunctivitis (Maltese) documented in this encounter Assessments Diagnosis LUQ pain- Primary Abdominal pain, left upper quadrant Anxiety Anxiety state, unspecified Diagnosis Pain, dental- Primary Unspecified disorder of the teeth and supporting structures Diagnosis Non-intractable vomiting with nausea, unspecified vomiting type- Primary Diagnosis Conjunctivitis of right eye, unspecified conjunctivitis type- Primary Additional Source Comments INFORMATION SOURCE (unrecogn ized section and content) DATE CREATED AUTHOR 04/04/2018 [facility] DATE CREATED AUTHOR AUTHOR'S ORGANIZ ATION 01/19/2021 [facility] DATE CREATED AUTHOR AUTHOR'S ORGANIZ ATION 01/21/2021 [facility] DATE CREATED AUTHOR AUTHOR'S ORGANIZ ATION 03/21/2021 [facility] DATE CREATED AUTHOR AUTHOR'S ORGANIZ ATION 09/06/2021 [facility] DATE CREATED AUTHOR AUTHOR'S ORGANIZ ATION 07/05/2023 [facility] DATE CREATED AUTHOR AUTHOR'S ORGANIZ ATION 11/08/2023 [facility] Reason for Visit (unrecogniz ed [...] MRI SPINE LUMBAR WITH AND WITHOUT CONTRAST MA MRI, LUMBAR SPINE COMBO Faith Davis, CARSON [address] [place] [address] Referral ID Status Reason Start Date Expiration Date V isits Requested Visits Authorized [id number] Pending Review 06/26/2021 07/21/2022 1 1 Reason Comments Follow-up Specialty Diagnoses / Procedures Referred By Osito galicia Referred To Contact Diagnoses Numbness and tingling of both feet Lumbar radiculopathy Procedures CT SPINE LUMBAR WITH CONTRAST CT SPINE LUMBAR WITHOUT CONTRAST MA CT SCAN,LUMBAR SPINE,W/O CONTRAST MA CT SCAN LUMBAR SP CONTRAST Vin Humphrey MD [address] [facility] [address] [place] [address] Referral ID Status Reason Start Date Expiration Date Visits Re quested Visits Authorized [id number] Closed 08/08/2021 09/02/2022 1 1 Specialty Diagnoses / Procedures Referred By Contac t Referred To Contact Diagnoses Numbness and tingling of both feet Lumbar radiculopathy Procedures XR FLUORO MYELOGRAM LUMBAR ONLY Margaret Boo MD [address] [place] [address] Referral ID Status Reason Start Date Expiration Date V isits Requested Visits Authorized [id number] Pending Review 08/08/2021 09/02/2022 1 1 Reason Comments Follow-up Reason Comments Dysphagia Patient reports vomi ting approximately 0615 AM with swollen uvula, voice change, and dysphagia since. Patient denies difficulty breathing and changes to medications. (unrecognized sect ion and content) No Status Records FoundNo Status Records Found Care Teams (unrecognized sec tion and content) Social Director Relationship Specialty Start Date End Date Fatemeh Palencia MD [address] [place] [address] PCP - General Family Medicine 07/02/18 Social Director Relationship Specialty Start Date End Date Fatemeh Palencia MD [address] [place] [address] PCP - General Family Medicine 07/02/18 Social Director Relationship Specialty Start Date End Date Fatemeh Palencia MD [address] [place] [address] PCP - General Family Medicine 07/02/18 Social Director Relationship Specialty Start Date End Date Fatemeh Palencia MD [address] [place] [address] PCP - General Family Medicine 07/02/18 Social Director Relationship Specialty Start [place] [address] [place] [phone] PCP - General Family Medicine 07/02/18 Social Director Relationship Specialty Start [place] [address] [place] [phone] PCP - General Family Medicine 07/02/18 Social Director Relationship Specialty Start [place] [address] [place] [phone] PCP - General Family Medicine 07/02/18 Social Director Relationship Specialty Start [place] [address] [place] [phone] PCP - General Family Medicine 07/02/18 Social Director Relationship Specialty Start Date End Date Fatemeh Palencia MD [address] [place] [phone] PCP - General Family Medicine 07/02/18 Scheduled [...] BE BASED ON THE PRIMARY CLINICAL RECORDS. [employer] [facility] provides no warranty or guarantee of the accuracy or completeness of information in this document.
== END 2024-06-16 20:51 | disposition home or self-care (01) ==
LOC: SLEEP 20:50
PROVIDERS: PCP Family Medicine; Visit Provider Family Medicine
DX: G47.33 Obstructive sleep apnea (adult) (pediatric) (principal)
CPT/HCPCS: 95810

== ENCOUNTER 2024-08-04 13:20 | Outpatient (OUT) | payer BC, SELFPAY ==
--- NOTE | 2024-08-04 13:26 | MR_ITS ---
[address] [address] Patient Name: MAMADOU DRISCOLL MRN: [id number] date: 1990 Sex: M Assigned Patient Location: MRI Current Patient Location: MRI Accession/Order Number: [id number] Exam Date: 08/04/2024 16:11 Report Date: 08/04/2024 16:15 At the request of: FATEMEH VALENTIN MD Procedure: MR lumbar spine wo con MRI Lumbar Spine withoutcontrast TECHNIQUE: Multiplanar T1 and T2-weighted imaging of lumbar spine obtained without contrast. HISTORY: Chronic lumbar pain. Radiculopathy. COMPARISON: None The last fully segmented vertebral pair is operationally defined as L5/S1. POST SURGERY CHANGES: None BONE MARROW INFILTRATION: None BONE MARROW EDEMA: None BONY ALIGNMENT: Adequate bony alignment identified. SPINAL CANAL: Mild to moderate LUMBAR FRACTURE: None BONY LESIONS: None KIDNEYS: No hydronephrosis is identified. AORTA: No aortic aneurysm is seen. CONUS MEDULLARIS : The distal spinal cord is in adequate position without abnormality. Additional findings CONJOINED NERVE ROOT: None Lower thoracic level: Unremarkable L1-2 :Unremarkable L2-3: Unremarkable L3-4: Disc space narrowing. Diffuse disc bulge. Midline disc protrusion. Concavity anterior thecal sac. Mild central canal stenosis. Posterior element hypertrophy. Mild to moderate bilateral neural foraminal narrowing greater on the right L4-5: Marked disc space narrowing. Type II Modic endplate changes. Diffuse disc bulge. Left parasagittal disc protrusion. Concavity anterior thecal sac. Mild central canal stenosis. Posterior element hypertrophy. Marked bilateral neural foraminal narrowing greater on the right. L5-S1: Mild disc space narrowing. Diffuse disc bulge. Mild central canal stenosis. Posterior element hypertrophy. Moderate to severe bilateral neural foraminal narrowing. MR/MR lumbar spine wo con IMPRESSION: Multilevel discovertebral degenerative changes greatest at the L4-5 level. Central canal narrowing and neural foraminal narrowing as above. disc herniations as above. Pre-MRI plain film assessment: None Impression dictated by: Milo Archer M.D. 08/04/2024 4:15 PM Dictation Location: [place] [address] Electronically authenticated by: [id number] Y Date: 08/04/2024 16:15
== END 2024-08-04 13:21 | disposition home or self-care (01) ==
LOC: MRI 13:20
PROVIDERS: PCP Family Medicine; Visit Provider Family Medicine
DX: M54.16 Radiculopathy, lumbar region (principal); M51.369 Other intervertebral disc degeneration, lumbar region without mention of lumbar back pain or lower extremity pain
CPT/HCPCS: 72148

== ENCOUNTER 2024-09-07 07:40 | Outpatient (RCR) | payer BC, SELFPAY | END 2024-10-07 23:59 | disposition home or self-care (01) | LOC: HEMC 07:40 | PROVIDERS: PCP Family Medicine; Visit Provider Internal Medicine Hematology & Oncology | DX: Z53.9 Procedure and treatment not carried out, unspecified reason (principal) ==